=== PATIENT | male | born 1945 | race Caucasian/White ===

== ENCOUNTER 2023-07-16 01:59 | Day surgery (SDC) | payer MEDICARE, SELFPAY ==
[2023-07-13 15:32] VITALS: BMI 34.0
[2023-07-16] VITALS (11 sets, daily range): BP systolic 77–153; BP diastolic 50–89; PULSE 47–90; RESP 14–20; TEMP 36.3; O2SAT 99–100; BMI 34.0
--- NOTE | 2023-07-16 07:00 | ECG_ITS ---
Measurements Intervals [place] Rate: 102 P: FL: 0 QRS: -19 QRSD: 101 T: -16 QT: 341 QTc: 446 Interpretive Statements ATRIAL FIBRILLATION WITH RAPID VENTRICULAR RESPONSE INFERIOR MYOCARDIAL INFARCTION , OF INDETERMINATE AGE [40+ ms Q WAVE AND/OR ST/T ABNORMALITY IN II/aVF] ABNORMAL ECG NO PREVIOUS ECG AVAILABLE FOR COMPARISON Electronically Signed On 07-16-2023 16:57:10 CDT by Zak Mendiola M.D.
[2023-07-16 08:11] LABS: Anion Gap 7 mmol/L (8-16); Blood Urea Nitrogen 22 mg/dL (9-20); Calcium 8.9 mg/dL (8.4-10.2); Carbon Dioxide 25 mmol/L (22-30); Chloride 102 mmol/L (98-107); Estimated CRCL calculation 75 ml/min; Estimated Glomerular Filt Rate > 60; Glucose 106 mg/dL (65-110); Magnesium 1.9 mg/dL (1.6-2.3); Potassium 4.3 mmol/L (3.4-5.0); Sodium 134 mmol/L (137-145)
--- NOTE | 2023-07-16 08:30 | ECG_ITS ---
Measurements Intervals [place] Rate: 51 P: 87 VT: 216 QRS: -21 QRSD: 110 T: -29 QT: 469 QTc: 433 Interpretive Statements SINUS BRADYCARDIA WITH FIRST DEGREE AV BLOCK INFERIOR MYOCARDIAL INFARCTION , OF INDETERMINATE AGE [40+ ms Q WAVE AND/OR ST/T ABNORMALITY IN II/aVF] COMPARED TO ECG 07/16/2023 07:20:29 SINUS BRADYCARDIA NOW PRESENT FIRST DEGREE AV BLOCK NOW PRESENT Electronically Signed On 07-16-2023 16:59:55 CDT by Zak Mendiola M.D.
--- NOTE | 2023-07-16 08:32 | WPDMODSED ---
Moderate Sedation Note-Pt Data Patient Data Diagnosis: Persistent atrial fibrillation Present Complaint: No complaints this morning Procedure to be performed/Plan: DC cardioversion Allergies Allergy/AdvReac Type Severity Reaction Status Date / Time No Known Allergies Allergy Verified 07/13/23 15:52 Home Medications Medication Instructions Recorded Confirmed Type amiodarone 200 mg tablet 400 mg PO DAILY 07/13/23 07/16/23 History apixaban 5 mg tablet (Eliquis) 5 mg PO BID 07/13/23 07/16/23 History cholecalciferol (vitamin D3) 50 50 mcg PO DAILY 07/13/23 07/16/23 History mcg (2,000 unit) capsule excyctik-ypqbzs-xrgnroic acid 1 cap PO DAILY 07/13/23 07/16/23 History levothyroxine 150 mcg tablet 150 mcg PO DAILY 07/13/23 07/16/23 History metoprolol succinate 100 mg 100 mg PO DAILY 07/13/23 07/16/23 History tablet,extended release 24 hr sacubitril 24 mg-valsartan 26 mg 1 tablet PO BID 07/13/23 07/16/23 History tablet (Entresto) spironolactone 25 mg tablet 25 mg PO DAILY 07/13/23 07/13/23 History Current Medications: Active Medications Sodium Chloride (Normal Saline Iv) 1,000 mls @ 30 mls/hr IV CONT .Q24H [place] Sedation/Anesthesia: No previous sedation/anesthesia problems (including family history). [facility] Social History Social History Smoking status: Former smoker Tobacco type: cigarettes Second hand tobacco smoke exposure: No Smoking end date: 10/01/72 Alcohol intake: current Alcohol use details: 1-2 drinks a week Substance use: never Substance use type: does not use Living arrangements: with family Spiritual care concerns: No Mod Sed Physical Exam Physical Exam Pre Procedural Exam: Normal: Appearance, Neck, Throat, Airway, Lungs, Heart Size, Neuro Exam and Extremities and Variation: Heart Rate and Heart Rhythm (Irregularly irregular) Hours since solid foods: 12 Hours since liquid intake: 12 Mallampati Classification: class II Internal Medicine - PN: Obj Da Vital Signs Vital Signs: Vital Signs - 24 hr 07/16/23 07:26 Temperature 36.3 C L Pulse Rate 90 Respiratory Rate 16 Blood Pressure 153/89 H Pulse Oximetry 99 Oxygen Delivery Room Air Meds/Results Medications: Active Medications Generic Name Dose Route Start Last Admin Trade Name Robyq PRN Reason Stop Dose Admin Sodium Chloride 1,000 mls @ 30 mls/hr 07/16/23 07:00 Normal Saline Iv IV CONT .Q24H [place] Labs 07/16/23 07:25 Labs: Laboratory Results - last 24 hr 07/16/23 07:25 Sodium 134 L Potassium 4.3 Chloride 102 Carbon Dioxide 25 Anion Gap 7 L BUN 22 H Creatinine 0.90 Estim Creat Clear Calc 75 Estimated GFR > 60 Glucose 106 Calcium 8.9 Magnesium 1.9 ASA Classification/Sedation ASA Classification/Sedation ASA Class: III Emergent: No Risks: Risks, benefits and alternatives explained and patient/family accepted plan for sedation. Patient re-evaluated immediately prior to sedation.
--- NOTE | 2023-07-16 08:41 | WPDCARDPROC ---
Cardiac Cath Procedure Note Date of procedure:: 07/16/23 Performing physician:: Lamberto Marin MD Indication:: Atrial fibrillation of unknown duration Left ventricular systolic dysfunction Brief clinical history:: This is an 78-year-old man recently seen in consultation as an outpatient because of the newly recognized atrial fibrillation. He was found to have some LV systolic dysfunction presumably related to this. He was treated with guideline directed medical therapy and started on amiodarone as an outpatient. He has been anticoagulated with apixaban. The attempt to restore sinus rhythm today has been scheduled as an outpatient. Procedure Procedure performed:: DC cardiovert Sedation/Medication given:: Intravenous propofol total dosage of 80 mg Estimated blood loss:: None Procedure note:: Patient was brought to the cardiac catheterization lab holding area where he was in the postabsorptive state IV access in the left upper extremity and defibrillator patches were placed in the AP position. Defibrillator was turned on at 200 joule output synchronized. He was sedated with the propofol as mentioned above. He was counter shocked x1 and restored sinus rhythm/sinus bradycardia with frequent atrial ectopic activity. Findings:: As above Conclusion:: Successful uncomplicated DC cardioversion restoring sinus rhythm with 200 joules x1 shock. Lamberto Brown MD [facility]
== END 2023-07-16 10:10 | disposition home or self-care (01) ==
PROVIDERS: PCP Physician Assistant Medical; Visit Provider Specialist
PROC: 5A2204Z Restoration of Cardiac Rhythm, Single (ICD-10-PCS; principal; 2023-07-16 08:30)
DX: I48.91 Unspecified atrial fibrillation (principal); Z79.01 Long term (current) use of anticoagulants; Z87.891 Personal history of nicotine dependence
CPT/HCPCS: 36415; 80048; 83735; 92960; A9270; J2704; J7040

== ENCOUNTER 2023-10-11 12:19 | Outpatient (CLI) | payer MEDICARE, SELFPAY ==
--- NOTE | ~2023-10-11 | US_ITS ---
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 COMPARISON: None. FINDINGS: Right and left brachial artery pressures of 140 mm Hg and 142 mm Hg, respectively, are concordant (no rmal difference <= 30 mmHg). The right ankle-brachial index (ARLET) is indeterminate as a vessel or unable to be occluded (normal >= 0.9-1). The right great toe-brachial index (TBI) is 0.33 (normal >= 0.6-0.8). Arterial waveforms are biphasic with normal brisk systolic upstrokes at the right common femoral artery with progressive de layed upstrokes and broadened systolic peaks at the right ankle and right great toe. The left ARELT is 1.28. The left TBI is 0.32. Arterial waveforms are biphasic with normal systolic upst roke at the left common femoral artery and with similar progressive delayed upstrokes and broadened s ystolic peaks at the left ankle. Essentially aphasic waveform at the left great toe. IMPRESSION: 1. Arterial occlusive disease to bilateral lower limbs with moderate to severely decreased bilateral TBI's Reviewed, dictated and finalized at location A. ENT SERVICES REPRESENTATIVE IMPRESSION: 1. Arterial occlusive disease to bilateral lower limbs with moderate to severel y decreased bilateral TBI's
== END 2023-10-11 12:20 | disposition home or self-care (01) ==
LOC: CHSIMG 12:22
PROVIDERS: PCP Physician Assistant Medical; Visit Provider Podiatrist Foot & Ankle Surgery
DX: I73.9 Peripheral vascular disease, unspecified (principal)
CPT/HCPCS: 93923

== ENCOUNTER 2024-01-17 08:49 | Outpatient (CLI) | payer MEDICARE, SELFPAY ==
[2024-01-17 10:14] LABS: Basophils Percent Auto 0.3 % (0.2-1.2); Eosinophils Absolute Auto 0.2 K/mm3 (0-0.3); Eosinophils Percent Auto 1.3 % (0-4.4); Hematocrit 41.5 % (42.0-52.0); Hemoglobin 13.5 g/dL (14.0-18.0); Immature Granulocyte Absolute 0.15 K/mm3 (0.00-0.031); Immature Granulocyte Percent A 1.3 % (0-0.5); Lymphocytes Absolute Auto 2.43 K/mm3 (0.9-3.2); Lymphocytes Percent Auto 20.6 % (18.3-44.2); Mean Corpuscular HGB Conc 32.5 g/dl (32-36); Mean Corpuscular Hemoglobin 32.3 pg (26-34); Mean Corpuscular Volume 99.3 fl (80-100); Mean Platelet Volume 11.2 fl (7.4-10.4); Monocytes Absolute Auto 1.1 K/mm3 (0.1-0.6); Monocytes Percent Auto 9.4 % (2.6-8.5); Neutrophils Absolute Auto 7.9 K/mm3 (1.3-6.7); Neutrophils Percent Auto 67.1 % (45.5-73.1); Platelet Count Result 363 k/mm3 (150-375); Red Blood Count 4.18 M/mm3 (4.6-6.20); Red Cell Distribution Width 12.8 % (11.5-14.5); White Blood Count 11.8 K/mm3 (4.5-10.0)
== END 2024-01-17 08:50 | disposition home or self-care (01) ==
PROVIDERS: PCP Physician Assistant Medical
DX: I73.9 Peripheral vascular disease, unspecified (principal); I50.9 Heart failure, unspecified
CPT/HCPCS: 36415; 85025

== ENCOUNTER 2024-05-05 09:23 | Outpatient (CLI) | payer MEDICARE, SELFPAY ==
[2024-05-05 10:27] LABS: Hematocrit 36.9 % (42.0-52.0); Hemoglobin 11.8 g/dL (14.0-18.0); Mean Corpuscular Hemoglobin 31.8 pg (26-34); Mean Corpuscular Volume 99.5 fl (80-100); Mean Platelet Volume 11.2 fl (7.4-10.4); Platelet Count Result 248 k/mm3 (150-375); Red Blood Count 3.71 M/mm3 (4.6-6.20); Red Cell Distribution Width 12.8 % (11.5-14.5); White Blood Count 8.3 K/mm3 (4.5-10.0)
[2024-05-05 10:31] LABS: Add Urine Microscopic? NO; Appearance Urine Clear (Clear); Bilirubin Urine Negative (Negative); Blood Urine Negative (Negative); Color Urine Yellow (Yellow); Glucose Urine UA Negative (Negative); Ketones Urine Negative (Negative); Leukocyte Esterase Ur Negative LEU/UL (Negative); Nitrate Urine Negative (Negative); Protein Urine Negative (Negative); Urobilinogen Urine 0.2 mg/dL (<2.0); pH Urine 5.5 (5.0-9.0)
[2024-05-05 10:36] LABS: Creatinine Urine 56.9 mg/dL; Total Protein Urine Random 11 mg/dL; Ur Ttl Prot Creatinine Ratio 0.19 mg/mg (0-0.20)
[2024-05-05 10:39] LABS: Creatine Kinase 40 U/L (55-170)
[2024-05-05 10:46] LABS: Complement C3 92 mg/dL (88-165)
[2024-05-05 11:10] LABS: Erythrocyte Sedimentation Rate 38 mm/hr (0-20)
[2024-05-07 08:49] LABS: ANA Pattern Nuclear, Speckled; ANA Titer 1:40 titer; Anti Nuclear Antibody Titer 1:40 titer
[2024-05-07 12:58] LABS: Kappa\\Lambda Light Chains 1.47 (0.26-1.65); Lambda Light Chain 17.3 mg/L (5.7-26.3)
[2024-05-07 14:53] LABS: Complement Total CH50 52 U/mL (31-60)
[2024-05-10 19:33] LABS: Immunofixation, Serum Normal pattern.
== END 2024-05-05 09:24 | disposition home or self-care (01) ==
PROVIDERS: PCP Physician Assistant Medical; Visit Provider Internal Medicine Nephrology
DX: I48.91 Unspecified atrial fibrillation (principal); I50.9 Heart failure, unspecified; R60.9 Edema, unspecified; R94.4 Abnormal results of kidney function studies; R89.9 Unspecified abnormal finding in specimens from other organs, systems and tissues
CPT/HCPCS: 36415; 81003; 82550; 82570; 83883; 84156; 85027; 85652; 86038; 86039; 86160; 86162; 86334

== ENCOUNTER 2024-05-07 10:31 | Outpatient (CLI) | payer MEDICARE, SELFPAY ==
[2024-05-07 12:03] LABS: Creatinine Urine 56.6 mg/dL
[2024-05-07 12:26] LABS: Total Volume 24 Hour Urine 1800 ml; Urea Nitrogen 24 Hour Urine 10.2 G/DAY (12-20)
[2024-05-07 12:27] LABS: Total Volume 24 Hour Urine 1800 ml
[2024-05-08 04:53] LABS: Sodium Urine Random 51 meq/L
[2024-05-08 04:54] LABS: Sodium 24 Hour Urine 91 mmol/day (40-220); Total Volume 24 Hour Urine 1800 ml
[2024-05-09 14:53] LABS: Creat 24 Hr 1.03 g/24 h (0.50-2.15); Pro/Creat Ratio 140 mg/g creat (<100); Protein,total, 24 Hr Ur 144 mg/24 h (<150)
[2024-05-12 16:13] LABS: Albumin 0 %
== END 2024-05-07 10:32 | disposition home or self-care (01) ==
LOC: ANHLAB 10:41
PROVIDERS: PCP Physician Assistant Medical; Visit Provider Internal Medicine Nephrology
DX: R94.4 Abnormal results of kidney function studies (principal); I48.91 Unspecified atrial fibrillation; I50.9 Heart failure, unspecified; R60.9 Edema, unspecified
CPT/HCPCS: 81050; 82570; 84300; 84540; 86335

== ENCOUNTER 2024-05-08 11:32 | Outpatient (CLI) | payer MEDICARE, SELFPAY ==
[2024-05-08 12:47] LABS: INR 1.4
[2024-05-08 12:53] LABS: Anion Gap 9 mmol/L (4-12); Blood Urea Nitrogen 47 mg/dL (9-20); Carbon Dioxide 26 mmol/L (22-30); Chloride 97 mmol/L (98-107); Estimated Glomerular Filt Rate 32; Glucose 105 mg/dL (65-110); Partial Thromboplastin Time 33.2 Seconds (22.3-36.8); Potassium 4.3 mmol/L (3.4-5.0); Sodium 132 mmol/L (137-145)
== END 2024-05-08 11:33 | disposition home or self-care (01) ==
PROVIDERS: PCP Physician Assistant Medical; Visit Provider Podiatrist Foot & Ankle Surgery
DX: M79.89 Other specified soft tissue disorders (principal); R94.4 Abnormal results of kidney function studies
CPT/HCPCS: 36415; 80048; 85610; 85730

== ENCOUNTER 2024-05-09 00:54 | Day surgery (SDC) | payer MEDICARE, SELFPAY ==
--- NOTE | 2024-05-07 15:40 | PC.NURSE ---
Report to the Outpatient Waiting Room, entrance under the green pavilion located off [facility], at time ___6:30 AM____ on date __05/09/24 . Planned Procedure Time: __8:30 AM . Time changes happen often and if your time is changed the preop area will call you the afternoon before. - You and your visitor will be asked to self-screen and do not enter if you have any COVID symptoms. - A mask is optional within the hospital at this time. Patients may have clear liquids (water, carbonated beverages, clear teas, apple juice) until 3 hours prior to surgery( 5:30 AM) with a maximum of 20 ounces. - No food from midnight until time of surgery - Infants may have breast milk until 4 hours before surgery, infant formula 6 hours prior to surgery. - Children will be allowed to drink immediately following surgery. If applicable, please bring a bottle or sippy cup to assist with drinking. Juice, water, soda, and popsicles are readily available. For infants on formula, please bring formula the day of surgery. Pacifiers are allowed. Take the following medications with a SIP of water the morning of surgery: __AMIODARONE,LEVOTHYROXINE,METOPROLOL DO NOT STOP ANY OF YOUR OTHER PRESCRIPTION MEDICATIONS PRIOR TO SURGERY ?EXCEPT THE FOLLOWING Medications to discontinue per physician __WIFE STATES LAST DOSE ELIQUIS WAS 05/06/24 .(THAT IS WHAT THEY HAVE DONE WITH OTHER SURGERIES) INSTRUCTED NOT TO STOP PLAVIX PER DR SPAIN (VASCULAR SURGEON) LAST DOSE ALL VITAMINS AND SUPPLMENTS WAS 05/06/24 Please no make-up, nail tajik, hairspray, perfume, deodorant, or body powder the day of surgery. No jewelry (including any body piercings) or valuables the day of surgery, leave them at home. Please take a shower or bath the night before, or the morning of, surgery with an antibacterial soap. Wear comfortable, loose fitting clothing. Children are encouraged to wear pajamas. - Jewelry must be removed prior to entering the operating room. Rings and piercings that are not removed may be cut off. - The hospital will not accept responsibility for valuables. - Please leave all valuables, including medications, at home the day of surgery. If you are going home after surgery, a licensed p d driver must drive you home. - NO public transportation without another adult if you receive anesthesia. - We recommend that an adult stay with you for 24 hours following discharge. - We also recommend that you do not drive, make important decision, drink alcoholic beverages, or take any drugs that were not prescribed by your health care provider for at least 24 hours after your discharge time. Follow any additional instructions given to you from your surgeon. If you or anyone in your household have experienced Covid symptoms in the past week, please notify your surgeon or the nurse liaison at the phone number below for possible testing. Telephone instructions given to __PATIENT'S KARLA and asked if any additional questions and then verbalized understanding. Patient advised to call surgeon office or pre surgery nurse liaison [phone] if any additional questions.
[2024-05-07 16:01] VITALS: BMI 37.5
--- NOTE | 2024-05-09 07:17 | WPDHPUPDATE1 ---
History and Physical Update Update Date/Time: 05/09/24 07:17 History and Physical has been reviewed, including an updated exam of the patient. There are NO changes in the patient's condition. Risks, benefits, and alternatives have been discussed and questions answered. Patient agrees to proceed with procedure.
[2024-05-09] MEDS: LACTATED RINGERS 1,000 ML 30 ML IV CONT (07:30)
--- NOTE | 2024-05-09 07:37 | SUR.PREOP ---
pt is to stay on plavix per vascular, dr sharp waived the repeat PT of 17 because the pt is still on plavix. NA was 132 and repeat was also waived by dr sharp. dr newton also aware of all of this too.
[2024-05-09 07:40] VITALS: BP 77/54; PULSE 55; RESP 14; TEMP 36.1; O2SAT 99
[2024-05-09] MEDS: LIDOCAINE HCL 2% LOCAL INJ 20 ML VIAL 10 ML INFILTRATE (08:07)
[2024-05-09 08:27] VITALS: BP 96/53; RESP 14
--- NOTE | 2024-05-09 08:30 | WPDANESEPPF ---
Anes - Initial Pre Proc Eval Procedure: Operation Date: 05/09/24 08:30 Proposed Procedures p Wound Bed Preparation of Right Foot, Skin Graft Application Right Foot - Amish Mackenzie Jr., DPM Date/Time: 05/09/24 08:30 Surgeon: Amish Mackenzie Jr., DPM Pre Op Diagnosis: chronic wound right foot Patient Data Age: 79 Gender: M Height: 1.83 m Weight: 127.1 kg Last Vital Signs Temp 36.1 C L 05/09/24 07:40 Pulse 55 L 05/09/24 07:40 Resp 14 05/09/24 08:27 BP 96/53 L 05/09/24 08:27 Pulse Ox 99 05/09/24 07:40 Allergies Allergy/AdvReac Type Severity Reaction Status Date / Time No Known Allergies Allergy Verified 05/09/24 07:46 Home Medications Medication Instructions Recorded Confirmed Type apixaban 5 mg tablet (Eliquis) 5 mg PO BID 07/13/23 05/09/24 History cholecalciferol (vitamin D3) 50 50 mcg PO DAILY 07/13/23 05/07/24 History mcg (2,000 unit) capsule kxlpyeqx-enjdhd-uyyuqsvg acid 1 cap PO DAILY 07/13/23 05/07/24 History levothyroxine 150 mcg tablet 150 mcg PO DAILY 07/13/23 05/09/24 History metoprolol succinate 100 mg 100 mg PO DAILY 07/13/23 05/09/24 History tablet,extended release 24 hr sacubitril 24 mg-valsartan 26 mg 1 tablet PO BID 07/13/23 05/07/24 History tablet (Entresto) amiodarone 200 mg tablet (Pacerone) 200 mg PO BID 05/05/24 05/09/24 History atorvastatin 40 mg tablet 40 mg PO DAILY 05/05/24 05/07/24 History clopidogrel 75 mg tablet (Plavix) 75 mg PO DAILY 05/05/24 05/09/24 History doxycycline hyclate 100 mg tablet 100 mg PO Q12H 05/05/24 05/07/24 History furosemide 40 mg tablet 40 mg PO QAM 05/05/24 05/07/24 History potassium citrate 5 mEq (540 mg) 5 meq PO DAILY 05/05/24 05/07/24 History tablet,extended release Patient hx anesthesia problems: other (combative) Family hx anesthesia problems: none Results Review: All pre-operative results and documents have been reviewed as part of the pre-operative evaluation. ON LICENSE OF [facility] Past Medical History Medical History Abnormal results of kidney function studies Afib CHF (congestive heart failure) Social History Social History Smoking packs per day: 0.5 Smoking cigarettes per day: 10.0 Years smoked: 3 Smoking pack-years: 1.50 Smoking status: Former smoker Tobacco type: cigarettes Second hand tobacco smoke exposure: No Smoking end date: 10/01/70 Alcohol intake: current Alcohol use details: 1-2 drinks a week Substance use: never Substance use type: does not use Do You Feel Safe in your Home?: Yes Lack of Transportation: No Lack of Food: Never True Current Housing: I Have Housing Concerned About Future Housing: No Difficulty Paying Gas/Electric Bills: No Difficulty Paying for Meds: No Currently Unemployed: No Education: High School Diploma/GED Difficulty w/ Childcare or Family Care: No Living arrangements: with family Occupation/Education: retired Gender identity (if verbalized by the patient): Male Spiritual care concerns: No Comments light sedation with amidate recent EF reported at 60% Anes - Eval Final PreProcedure Day of Procedure 05/09/24 08:30 Patient weight: obese Heart: regular rate and rhythm Lungs: decreased breath sounds Airway: Mallampati scale class II Neurological: alert and oriented Last oral intake: >/= 8 hours ASA classification: IV Emergent: no Anesthetic plan: proceed Anesthesia type and monitoring: general GIVS and standard monitoring Results Review: All pre-operative results and documents have been reviewed as part of the pre-operative evaluation. Informed Consent: The patient's anesthetic plan and its attendant risks and benefits were discussed with the patient/family/POA. Questions were solicited and answers provided to the satisfaction of the patient/family/POA.
[2024-05-09] MEDS: ceFAZolin 3 GM/D5W 100 ML 100 ML IVPB (08:34)
[2024-05-09 09:08] VITALS: BP 104/50; PULSE 42; RESP 16; O2SAT 100
--- NOTE | 2024-05-09 09:31 | PM.OP ---
Procedure Note - Brief Procedure Note - Brief Date of procedure: 05/09/24 chronic wound right foot Procedure performed: 1. Wound bed preparation right foot 2. Skin graft application right foot Surgeon: Amish Mackenzie Jr., DPM Findings: Full thickness ulcer measuring 2.5cm in diameter. Not probing to bone.
[2024-05-09 09:40] VITALS: BP 113/51; PULSE 44; RESP 16
[2024-05-09 10:10] VITALS: BP 111/51; PULSE 59; RESP 16
--- NOTE | 2024-05-09 13:03 | W.PM.PROC2 ---
Procedure Note - Detailed Date of Procedure 05/09/24 Pre-op Diagnosis Chronic wound right foot Post-op Diagnosis Same Procedure Performed 1. Wound bed preparation right foot 2. Skin graft application right foot Surgeon Amish Mackenzie Jr., DPM Anesthesia MAC and Local Indications Chronic non healing ulceration right foot s/p angioplasty to the right lower extremity. Description of Procedure Under mild sedation, the patient was brought in to the operating room and kept in the pre op bed in order to prevent patient overexertion during the transfer.The foot was then scrubbed, prepped, and draped in the usual aseptic manner. Following light IV sedation, local anesthesia was obtained about the affected lower extremity utilizing 20 mL of a one to mix of 2% Lidocaine plain and 0.5% Marcaine plain with a main block about the base of the 5th metatarsal.?No tourniquet was used per the request of Dr. Julian Jordan,the vascular specialist, as the patient recently underwent a right lower extremity angioplasty. Next, I used the [employer] 8mm system to carefully debrided the peripheral hyperkeratotic tissue and also the superficial aspect of the wound until healthy bleeding tissue was noted. Next, I applied the 5cm by 5cm Integra Cytal Wound matrix 3-layer graft. I did use a 5-0 Prolene to suture the graft to the wound. I trimmed the excess from the periphery of the wound as per standard graft application technique. Next, I applied adaptic, hydrogel, and wet to dry 4x4 gauze over the graft. The secondary dressings included 4x4 gauze, Kerlix and an Chavez Wrap. The patient will remain on a limited weight bearing regiment for the next 3 days until he is seen in my office for a dressing change. Order written for home health and also for a wheel chair. The patient did very well with the procedure and the anesthesia.? The patient was transferred to the recovery room with vital signs stable and vascular status intact to all toes of the affected foot.? Following a period of postoperative monitoring, the patient will be discharged home on the following written and oral postoperative instructions: 1. The patient should keep the dressing clean, dry, and intact.? Use a cast protector bag with showers. 2. The patient will be strictly protected weight bearing with a surgical shoe and use a wheel chair/walker as needed. 3. Patient should elevate the foot while at rest. 4. The patient is to contact Dr. Mackenzie for all postop care and if any problems arise. 5. Prescriptions were written for Percocet 5/325 dispensed 40 to be taken 1 p.o. q.4-6 hours as needed for severe pain.? Implants Versajet 8mm system Integra Cytal Wound Matrix 3 layer xenograft 5cm by 5cm Estimated Blood Loss 1 Drains No Packing No Pathology None sent Complications No immediate complications Condition Stable Disposition Same day
== END 2024-05-09 10:30 | disposition home or self-care (01) ==
PROVIDERS: PCP Physician Assistant Medical; Visit Provider Podiatrist Foot & Ankle Surgery
PROC: (CPT 15275; principal; 2024-05-09 08:30)
DX: T81.89XA Other complications of procedures, not elsewhere classified, initial encounter (principal); L97.519 Non-pressure chronic ulcer of other part of right foot with unspecified severity; Y83.8 Other surgical procedures as the cause of abnormal reaction of the patient, or of later complication, without mention of misadventure at the time of the procedure; I48.91 Unspecified atrial fibrillation; I50.9 Heart failure, unspecified; Z87.891 Personal history of nicotine dependence; Z79.02 Long term (current) use of antithrombotics/antiplatelets; E66.9 Obesity, unspecified; Z68.38 Body mass index [BMI] 38.0-38.9, adult; Z79.01 Long term (current) use of anticoagulants
CPT/HCPCS: 15275; 15004; J0690; J2704; J7120

== ENCOUNTER 2024-05-23 13:31 | Outpatient (CLI) | payer MEDICARE, SELFPAY ==
--- NOTE | ~2024-05-23 | US_ITS ---
EXAMINATION: US venous doppler [facility] DATE: 05/23/2024 14:17 INDICATION: Lower limb edema. TECHNIQUE: Grayscale ultrasound images without and with compression and Doppler ultrasound images of the bilateral lower extremity veins were obtained. COMPARISON: None. FINDINGS: The visualized portions of right common femoral vein, profunda (deep) femoral vein, femoral vein, pop liteal vein, peroneal veins, posterior tibial veins, and greater saphenous vein outflow are patent. The visualized portions of left common femoral vein, profunda femoral vein, femoral vein, popliteal v ein, peroneal veins, posterior tibial veins, and greater saphenous vein outflow are patent. IMPRESSION: 1. No deep venous thrombosis. Reviewed, dictated and finalized at location A.
== END 2024-05-23 13:32 | disposition home or self-care (01) ==
PROVIDERS: PCP Physician Assistant Medical; Visit Provider Internal Medicine Nephrology
DX: R60.9 Edema, unspecified (principal); M79.89 Other specified soft tissue disorders
CPT/HCPCS: 93970

== ENCOUNTER 2024-05-24 18:35 | Inpatient (IN) | payer MEDICARE, SELFPAY ==
[2024-05-24] VITALS (12 sets, daily range): BP systolic 62–155; BP diastolic 32–103; PULSE 30–83; RESP 13–24; TEMP 36.3–36.6; O2SAT 98–100
--- NOTE | ~2024-05-24 | XR_ITS ---
Supine and upright views of the abdomen Clinical history: Nausea, vomiting Findings: And NG tube in place. Mildly distended small bowel loops could reflect small bowel obstruct ion. No free air. No abnormal mass lesion or calcification is seen. There is degenerative spondylosis of the lumbar spine. Impression: . Suspected small bowel obstruction with NG tube in place. Reviewed, dictated and finalized at location . Impression: . Suspected small bowel obstruction with NG tube in place.
--- NOTE | ~2024-05-24 | XR_ITS ---
Portable chest x-ray Comparison: 05/26/2024 Clinical History: Hypoxia Findings: Right-sided PICC line in satisfactory position. Questionable minimal central haziness the right upper lobe inferiorly. Remainder of the lungs are clear.. Cardiomediastinal silhouette is stab le. Bones and soft tissues are unremarkable. Impression: Questional subtle hazy opacity inferior right upper lobe. Right-sided PICC line in place. Reviewed, dictated and finalized at location M. Impression: Questional subtle hazy opacity inferior right upper lobe. Right-sided PICC line in place.
--- NOTE | ~2024-05-24 | XR_ITS ---
Supine and upright views of the abdomen Clinical history: NG tube placement Findings: NG tube in place, side port just below the diaphragm. Bowel gas pattern is nonspecific. No evidence for free air. No abnormal mass lesion or calcification is seen. Osseous structures are intac t. Impression: NG tube in place, as above. Reviewed, dictated and finalized at location . Impression: NG tube in place, as above.
--- NOTE | ~2024-05-24 | CT_ITS ---
Noncontrast CT scan of the right foot CLINICAL HISTORY: Sepsis TECHNIQUE: Noncontrast imaging of the foot was performed in the axial, coronal, and sagittal planes. Dose reduction technique was used on this scan by utilizing automated exposure control and iterative reconstruction technique. The dose-length product (DLP) was 533.33 mGy-cm. Findings: No acute fracture seen. No bony destructive change or periosteal reaction seen to suggest o steomyelitis. There is advanced degenerative change at the first metatarsophalangeal joint region. There is extensive atrophic change of the plantar musculature of the foot. There is diffuse subcutane ous soft tissue edema, especially at the distal calf/ankle. No focal fluid collection/abscess evident . There are extensive vascular calcifications. There is a probable stent in the posterior tibial franklin ry distally. IMPRESSION: No definite evidence of osteomyelitis. Advanced degenerative change at the first metatarsophalangeal joint region. Diffuse subcutaneous soft tissue edema. Correlate for cellulitis versus bland edema. Reviewed, dictated and finalized at [facility]. IMPRESSION: No definite evidence of osteomyelitis. Advanced degenerative change at the first metatarsophalangeal joint region. Diffuse subcutaneous soft tissue edema. Correlate for cellulitis versus bland e cecille.
--- NOTE | ~2024-05-24 | CT_ITS ---
Non-contrast CT scan of the Abdomen and Pelvis Clinical indication: Nausea and vomiting Technique: 2.5 mm axial scans were obtained through the abdomen and pelvis without intravenous or or al contrast. Dose reduction technique was used on this scan by utilizing automated exposure control a nd iterative reconstruction technique. The dose-length product (DLP) was 1583.05 mGy-cm. Findings: Images through the lung bases reveal multifocal patchy areas of consolidation the bilatera l lower lobes, compatible with pneumonia.. There are bilateral nonobstructing renal stones, largest in the right kidney measuring up to 1 cm in diameter. No ureteral stone or hydronephrosis on either side. The liver, spleen, pancreas, gallbladder, and adrenals appear normal. There is no aortic aneurysm. There is no evidence of bowel obstruction. Images through the pelvis were performed. There is no evidence of ascites or lymphadenopathy. 1.4 cm urinary bladder stone present. Prostate gland enlarged. No pelvic mass evident. Impression: Patchy bilateral lower lobe pneumonia. Bilateral nonobstructing nephrolithiasis. 1.4 cm urinary bladder stone. Reviewed, dictated and finalized at [facility]. Impression: Patchy bilateral lower lobe pneumonia. Bilateral nonobstructing nephrolithiasis. 1.4 cm urinary bladder stone.
--- NOTE | ~2024-05-24 | XR_ITS ---
Supine and upright views of the abdomen Clinical history: Ileus, small bowel obstruction COMPARISON: 05/29/2024 Findings: NG tube in satisfactory position. Bowel gas pattern is nonspecific overall. No free air trudy dent. No abnormal mass lesion or calcification is seen. There is degenerative change of the L-spine. Impression: Nonspecific bowel gas pattern, with NG tube in place. Reviewed, dictated and finalized at location . Impression: Nonspecific bowel gas pattern, with NG tube in place.
--- NOTE | ~2024-05-24 | US_ITS ---
EXAMINATION: US renal BI DATE: 05/25/2024 13:53 INDICATION: Acute on chronic kidney disease. TECHNIQUE: Multiple ultrasound grayscale images of the kidneys were obtained. COMPARISON: Lumbar spine CT 01/06/2011 FINDINGS: The right kidney measures 10.3 x 7.2 x 6.7 cm. The left kidney is not identified. The right kidney d emonstrates normal parenchymal echogenicity. There is no right-sided hydronephrosis. The bladder is n ot visualized. IMPRESSION: 1. Normal right kidney. 2. Left kidney not identified. Reviewed, dictated and finalized at location A.
--- NOTE | ~2024-05-24 | XR_ITS ---
EXAMINATION: XR ribs RT 2V w CXR 2V Exam Date/Time: 05/24/2024 19:40 CDT HISTORY: pain after falls; hx chf; edema on exam Comparison: None available. RESULT: Lines, tubes, and devices: None. Lungs and pleura: Clear. Cardiothymic silhouette: Unremarkable. Other: No acute osseous or upper abdominal finding. IMPRESSION: No acute cardiopulmonary process. No acute osseous finding in the right ribs. Reviewed, dictated and finalized at location K.
--- NOTE | ~2024-05-24 | XR_ITS ---
Portable chest x-ray Comparison: 05/24/2024 Clinical History: PICC line placement Findings: Right-sided PICC line present, tip in the SVC. Possible minimal central congestive change. No pneumothorax. Cardiomediastinal silhouette is stable. Bones and soft tissues are unremarkable. Impression: Right-sided PICC line in satisfactory position. Possible minimal central congestive change. Reviewed, dictated and finalized at location . Impression: Right-sided PICC line in satisfactory position. Possible minimal central congestive change.
--- NOTE | ~2024-05-24 | CT_ITS ---
EXAMINATION: CT brain wo con DATE: 05/24/2024 19:29 INDICATION: Fall on Eliquis . TECHNIQUE: Computed tomography (CT) of the head was performed without intravenous contrast. The mA wa s adjusted according to patient size. Iterative reconstruction technique was employed. The dose-lengt h product was 756.57 mGy-cm. COMPARISON: None. FINDINGS: No acute intracranial hemorrhage or extra-axial fluid collection. No hydrocephalus, mass, or herniation. No acute ischemic infarct. Unremarkable dural venous sinus attenuation. No acute osseous abnormality. The aerated spaces are clear. Mild atrophy and chronic white matter change. Atherosclerotic intracranial calcification. Bilateral l ens replacements. IMPRESSION: No acute intracranial process. Reviewed, dictated and finalized at location K.
--- NOTE | 2024-05-24 18:57 | ED.WEAKNESS ---
HPI - Weakness General Chief complaint: Weakness Stated complaint: weakness Time Seen by Provider: 05/24/24 18:55 Source: patient and family ( daughter, ) History of Present Illness HPI Narrative: patient presents with weakness and multiple falls. He has had 2 falls this week. he has been having multiple falls recently besides this. He is on Eliquis. He has a history of heart failure and atrial fibrillation and is on amiodarone, Entresto, furosemide, and metoprolol. he is also on Plavix. He has a history of vascular issues in his lower extremities particularly on the right and has previously undergone deep vein arteriograph and has a stent on the right leg. Yesterday he had venous Doppler imaging in this leg recently and had a hair is matted arterial Doppler imaging which he gets performed monthly. Dr Brandon had ordered some of this imaging. 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 he denies any shortness of breath although his daughter does think that he becomes short of breath without him realizing it. He had been diagnosed with mesothelioma. his only complaints of pain is as ribs from falling today. He states he has taken today's medications. He denies any loss of consciousness. His Lasix dose has been changed from 80 mg daily to 40 mg daily 2 months ago given his falls. He underwent allografting in the right foot with Dr Mackenzie. He denies any CP. Related Data Home Medications Medication Instructions Recorded Confirmed apixaban 5 mg tablet (Eliquis) 5 mg PO BID 07/13/23 05/09/24 cholecalciferol (vitamin D3) 50 50 mcg PO DAILY 07/13/23 05/07/24 mcg (2,000 unit) capsule azncjmie-xneyom-ztzyicrm acid 1 cap PO DAILY 07/13/23 05/07/24 levothyroxine 150 mcg tablet 150 mcg PO DAILY 07/13/23 05/09/24 metoprolol succinate 100 mg 100 mg PO DAILY 07/13/23 05/09/24 tablet,extended release 24 hr sacubitril 24 mg-valsartan 26 mg 1 tablet PO BID 07/13/23 05/07/24 tablet (Entresto) amiodarone 200 mg tablet (Pacerone) 200 mg PO BID 05/05/24 05/09/24 atorvastatin 40 mg tablet 40 mg PO DAILY 05/05/24 05/07/24 clopidogrel 75 mg tablet (Plavix) 75 mg PO DAILY 05/05/24 05/09/24 doxycycline hyclate 100 mg tablet 100 mg PO Q12H 05/05/24 05/07/24 furosemide 40 mg tablet 40 mg PO QAM 05/05/24 05/07/24 potassium citrate 5 mEq (540 mg) 5 meq PO DAILY 05/05/24 05/07/24 tablet,extended release Allergies Allergy/AdvReac Type Severity Reaction Status Date / Time No Known Allergies Allergy Verified 05/09/24 07:46 [facility] Past Medical History Medical History (Updated 05/24/24 @ 22:51 by Heide Ortiz MD) Abnormal results of kidney function studies Afib CHF (congestive heart failure) Surgical History Surgical History History of angioplasty of peripheral vessel Social History Social History Smoking packs per day: 0.5 Smoking cigarettes per day: 10.0 Years smoked: 3 Smoking pack-years: 1.50 Smoking status: Former smoker Tobacco type: cigarettes Second hand tobacco smoke exposure: No Smoking end date: 10/01/70 Alcohol intake: current Alcohol use details: 1-2 drinks a week Substance use: never Substance use type: does not use Do You Feel Safe in your Home?: Yes Lack of Transportation: No Lack of Food: Never True Current Housing: I Have Housing Concerned About Future Housing: No Difficulty Paying Gas/Electric Bills: No Difficulty Paying for Meds: No Currently Unemployed: No Education: High School Diploma/GED Difficulty w/ Childcare or Family Care: No Living arrangements: with family Occupation/Education: retired Gender identity (if verbalized by the patient): Male Spiritual care concerns: No Exam Narrative: GENERAL: Well-appearing, well-nourished, and in no acute distress. HEAD: Normocephalic, atraumatic. EYES: Non injected, non icteric
--- NOTE | 2024-05-24 18:58 | ECG_ITS ---
Test Date: 2024-05-24 20:02:32 Measurements Intervals [place] Rate: 32 P: 78 [place]: 294 QRS: -7 QRSD: 111 T: 3 QT: 557 QTc: 411 Interpretive Statements SINUS BRADYCARDIA WITH FIRST DEGREE AV BLOCK MODERATE INTRAVENTRICULAR CONDUCTION DELAY [110+ ms QRS DURATION] No previous ECG available for comparison Electronically Signed On 05-25-2024 10:37:54 CDT by Kailey Tompkins M.D.
[2024-05-24] MEDS: ATROPINE SULFATE 1 MG/ML VIAL IV PUSH (20:08)
[2024-05-24] MEDS: ATROPINE SULFATE 1 MG/10 ML SYRINGE IV PUSH (20:13)
[2024-05-24] MEDS: SODIUM CHLORIDE 0.9% IV 500 ML 999 ML IV CONT (20:13)
[2024-05-24 20:25] LABS: Basophils Percent Auto 0.2 % (0.2-1.2); Eosinophils Absolute Auto 0.1 K/mm3 (0-0.3); Eosinophils Percent Auto 1.5 % (0-4.4); Hematocrit 31.7 % (42.0-52.0); Hemoglobin 10.4 g/dL (14.0-18.0); Immature Granulocyte Absolute 0.17 K/mm3 (0.00-0.031); Immature Granulocyte Percent A 1.9 % (0-0.5); Lymphocytes Absolute Auto 1.99 K/mm3 (0.9-3.2); Lymphocytes Percent Auto 22.5 % (18.3-44.2); Mean Corpuscular HGB Conc 32.8 g/dl (32-36); Mean Corpuscular Hemoglobin 32.3 pg (26-34); Mean Corpuscular Volume 98.4 fl (80-100); Mean Platelet Volume 12.5 fl (7.4-10.4); Monocytes Absolute Auto 0.9 K/mm3 (0.1-0.6); Monocytes Percent Auto 9.6 % (2.6-8.5); Neutrophils Absolute Auto 5.7 K/mm3 (1.3-6.7); Neutrophils Percent Auto 64.3 % (45.5-73.1); Nucleated Red Blood Cells Perc 0.2 % (0.0-0.2); Platelet Count Result 231 k/mm3 (150-375); Red Blood Count 3.22 M/mm3 (4.6-6.20); Red Cell Distribution Width 13.5 % (11.5-14.5); White Blood Count 8.9 K/mm3 (4.5-10.0)
[2024-05-24 20:33] LABS: Glucose Point of Care 107 mg/dl (65-105)
[2024-05-24 20:34] LABS: Alanine Aminotransferase 123 U/L (6-50); Albumin Level 3.4 g/dL (3.5-5.1); Alkaline Phosphatase 126 U/L (38-126); Anion Gap 11 mmol/L (4-12); Aspartate Amino Transferase 89 U/L (17-59); Bilirubin,Total 0.6 mg/dL (0.2-1.3); Blood Urea Nitrogen 64 mg/dL (9-20); Calcium 8.7 mg/dL (8.4-10.2); Carbon Dioxide 23 mmol/L (22-30); Chloride 95 mmol/L (98-107); Creatine Kinase 37 U/L (55-170); Estimated CRCL calculation 27 ml/min; Estimated Glomerular Filt Rate 23; Glucose 101 mg/dL (65-110); Magnesium 1.7 mg/dL (1.6-2.3); Potassium 5.1 mmol/L (3.4-5.0); Sodium 129 mmol/L (137-145)
[2024-05-24 20:35] LABS: Lactic Acid Reflex 2.7 mmol/L (0.7-2.0)
[2024-05-24 20:45] LABS: NT Pro B Type Natriuretic Pept 2550 pg/mL (19.9-100); Troponin I < 0.012 ng/mL (0.000-0.034)
[2024-05-24] MEDS: DOPamine 400 MG/D5W 250 ML 400 MG/250 ML BAG 11.63 MG IV CONT (20:50)
--- NOTE | 2024-05-24 20:57 | PC.NURSE ---
2034 1 mg of atropine administered via IVP per Dr. Avain jiménez. 2049 dopamine drip started at 5mcg/kg/min per Dr. Avani jiménez.
[2024-05-24 21:12] LABS: Influenza A QL RT-PCR Negative (Negative); Influenza B QL RT-PCR Negative (Negative); RSV RNA, RT-PCR Negative (Negative); SARS-CoV-2 RNA PCR Negative (Negative)
[2024-05-24 21:39] LABS: Thyroid Stimulating Hormone 0.789 uIU/mL (0.465-4.680)
--- NOTE | 2024-05-24 21:44 | PM.IMHP ---
H&P: HPI History of Present Illness Date/Time: 05/24/24 21:44 Chief Complaint: Generalized weakness Narrative: this is an 79-year-old male with past medical history significant for atrial fibrillation, congestive heart failure, peripheral vascular disease, status post stent placement, chronic wound of the right lower extremity. patient presents to the emergency room due to recurrent falls. Today patient was found to have a heart rate in the 30s and systolic of 70 brought to the emergency room for further evaluation. Had a fever the day prior. Patient is status post recent surgery of right foot and stenting. patient has multiple tears of the skin and bruises. Preliminary workup was significant for creatinine of 2.7, BNP of 2550, sodium 129. Patient has been placed on dopamine drip and admitted to intensive care unit. EXAMINATION: XR ribs RT 2V w CXR 2V Exam Date/Time: 05/24/2024 19:40 CDT HISTORY: pain after falls; hx chf; edema on exam Comparison: None available. RESULT: Lines, tubes, and devices: None. Lungs and pleura: Clear. Cardiothymic silhouette: Unremarkable. Other: No acute osseous or upper abdominal finding. IMPRESSION: No acute cardiopulmonary process. No acute osseous finding in the right ribs. EXAMINATION: US venous doppler LE BI DATE: 05/23/2024 14:17 INDICATION: Lower limb edema. TECHNIQUE: Grayscale ultrasound images without and with compression and Doppler ultrasound images of the bilateral lower extremity veins were obtained. COMPARISON: None. FINDINGS: The visualized portions of right common femoral vein, profunda (deep) femoral vein, femoral vein, popliteal vein, peroneal veins, posterior tibial veins, and greater saphenous vein outflow are patent. The visualized portions of left common femoral vein, profunda femoral vein, femoral vein, popliteal vein, peroneal veins, posterior tibial veins, and greater saphenous vein outflow are patent. IMPRESSION: 1. No deep venous thrombosis. [facility] Past Medical History Medical History (Updated 05/24/24 @ 22:51 by Heide Ortiz MD) Abnormal results of kidney function studies Afib CHF (congestive heart failure) Surgical History Surgical History History of angioplasty of peripheral vessel Family History Family History (Updated 05/24/24 @ 23:46 by Robert Fernandez RN) Sibling Atrial fibrillation Cerebrovascular accident Father Myocardial infarction Other Myocardial infarct, old Social History Social History Smoking packs per day: 0.5 Smoking cigarettes per day: 10.0 Years smoked: 3 Smoking pack-years: 1.50 Smoking status: Former smoker Tobacco type: cigarettes Second hand tobacco smoke exposure: No Smoking end date: 10/01/70 Alcohol intake: former Alcohol use details: 1-2 drinks a week Substance use: never Substance use type: does not use Do You Feel Safe in your Home?: Yes Lack of Transportation: No Lack of Food: Never True Current Housing: I Have Housing Concerned About Future Housing: No Difficulty Paying Gas/Electric Bills: No Difficulty Paying for Meds: No Currently Unemployed: No Education: High School Diploma/GED Difficulty w/ Childcare or Family Care: No Living arrangements: with family Occupation/Education: retired Gender identity (if verbalized by the patient): Male Spiritual care concerns: No Meds Home Medications and Allergies Home Medications Medication Instructions Recorded Confirmed Type apixaban 5 mg tablet (Eliquis) 5 mg PO BID 07/13/23 05/24/24 History cholecalciferol (vitamin D3) 50 50 mcg PO DAILY 07/13/23 05/24/24 History mcg (2,000 unit) capsule collagen,hydrolysate 500 mg-biotin 1 cap PO DAILY ##0 07/13/23 05/24/24 History 800 mcg-ascorbic acid 50 mg capsule levothyroxine 150 mcg tablet
[2024-05-24] MEDS: MORPHINE SULFATE (*CRX) 4 MG/ML INJ IV PUSH (21:53)
[2024-05-24] MEDS: CALCIUM GLUCONATE 1,000 MG/10 ML VIAL 1000 MG IV PUSH (22:10)
[2024-05-24 22:24] LABS: Add Urine Microscopic? YES; Appearance Urine Clear (Clear); Bacteria Urine None Seen /hpf; Bilirubin Urine Negative (Negative); Blood Urine Negative (Negative); Color Urine Yellow (Yellow); Glucose Urine UA Negative (Negative); Ketones Urine Negative (Negative); Leukocyte Esterase Ur Negative LEU/UL (Negative); Need Manual Microscopic Reviewed; Nitrate Urine Negative (Negative); Protein Urine Trace mg/dL (Negative); RBC Urine 0-2 /hpf (0-2); Specific Grav Ur 1.011 (1.001-1.035); Squamous Epithelial Cell Urine None Seen /hpf (Few); Urobilinogen Urine 0.2 mg/dL (<2.0); WBC Urine 0-5 /hpf (0-3)
[2024-05-24 23:12] LABS: Reflex Lactic Acid Yes or No Add Lactic
[2024-05-25] VITALS (30 sets, daily range): BP systolic 70–167; BP diastolic 40–106; PULSE 47–83; RESP 13–23; TEMP 36.3–36.5; O2SAT 96–100; BMI 40.1
[2024-05-25 01:12] LABS: Lactic Acid 1.6 mmol/L (0.7-2.0)
[2024-05-25] MEDS: SODIUM CHLORIDE 0.9% IV 1,000 ML 65 ML IV CONT (01:25)
[2024-05-25] MEDS: CEFEPIME 1 GM/NS 50 ML 1 GM/50 ML BAG IVPB ×2 (01:25→13:31)
[2024-05-25 01:34] LABS: MRSA (PCR) NOT DETECTED (NOT DETECTE)
[2024-05-25 01:55] LABS: Glucose Point of Care 110 mg/dl (65-105)
[2024-05-25] MEDS: VANCOMYCIN 1,250 MG/NS 250 ML 1,250 MG/250 ML BAG 166.67 MG IVPB ×2 (02:30→04:10)
--- NOTE | 2024-05-25 02:37 | ADMGEN ---
This patient, Adolfo Ibarra, was admitted to Intensive Care Unit-2. Patient/family oriented to hospital policies and general routines including ID bracelet, bed and alarms, visiting hours, pain management, procedures, bathroom and other care routines, personal items, smoking policy, room service/diet, and visiting hours. Information on how to activate the Rapid Response Team has been discussed. Patient/Family are encouraged to report perceived risks to care and to ask questions if they do not understand what they are told or what they should do.
[2024-05-25 06:03] LABS: Hematocrit 34.4 % (42.0-52.0); Hemoglobin 11.2 g/dL (14.0-18.0); Mean Corpuscular HGB Conc 32.6 g/dl (32-36); Mean Corpuscular Hemoglobin 31.8 pg (26-34); Mean Corpuscular Volume 97.7 fl (80-100); Mean Platelet Volume 11.3 fl (7.4-10.4); Platelet Count Result 234 k/mm3 (150-375); Red Blood Count 3.52 M/mm3 (4.6-6.20); Red Cell Distribution Width 13.3 % (11.5-14.5); White Blood Count 11.8 K/mm3 (4.5-10.0)
[2024-05-25 06:13] LABS: Anion Gap 7 mmol/L (4-12); Blood Urea Nitrogen 58 mg/dL (9-20); Calcium 9.1 mg/dL (8.4-10.2); Carbon Dioxide 25 mmol/L (22-30); Chloride 99 mmol/L (98-107); Estimated CRCL calculation 28 ml/min; Estimated Glomerular Filt Rate 24; Glucose 99 mg/dL (65-110); Magnesium 1.6 mg/dL (1.6-2.3); Phosphorus 4.1 mg/dL (2.5-4.5); Potassium 4.7 mmol/L (3.4-5.0); Sodium 131 mmol/L (137-145)
[2024-05-25] MEDS: LEVOTHYROXINE SODIUM 150 MCG TABLET PO (07:19)
--- NOTE | 2024-05-25 09:46 | WPDCNINT ---
Assessment and Plan Assessment and plan (1) Symptomatic bradycardia: Code(s): R00.1 - Bradycardia, unspecified Status: Acute Assessment and Plan: Symptomatic sinus bradycardia with hypotension Replace magnesium Hold amiodarone and beta-dylon Dopamine infusion to keep his heart rate of 50 (2) Acute kidney injury superimposed on CKD: Code(s): N17.9 - Acute kidney failure, unspecified; N18.9 - Chronic kidney disease, unspecified Status: Acute Assessment and Plan: Patient has history of chronic kidney disease although baseline creatinine is unknown the information in the chart. Patient was seen by Nephrology as an outpatient. Nephrology has been consulted. This could be worsened secondary to hypotension from bradycardia and intravascular volume depletion Will give cautious amount of IV fluids considering patient is overall volume overloaded Monitor urine output electrolytes and creatinine Check CK, urine electrolytes, renal ultrasound Monitor intake and output (3) Hyperkalemia: Code(s): E87.5 - Hyperkalemia Status: Acute Assessment and Plan: Presented with potassium of 5.1 which has improved with medical treatment Monitor potassium level (4) Peripheral arterial disease: Code(s): I73.9 - Peripheral vascular disease, unspecified Status: Acute Assessment and Plan: Patient has history of peripheral arterial disease status post vascular procedure in the right leg details of that are unknown as procedure was done at [facility] (5) Afib: Code(s): I48.91 - Unspecified atrial fibrillation Status: Acute Assessment and Plan: Currently in sinus rhythm but bradycardic hold amiodarone and metoprolol Hold anticoagulation (6) Edema: Code(s): R60.9 - Edema, unspecified Status: Acute Assessment and Plan: Patient is overall volume overloaded and will need diuretics eventually but at this time due to worsening renal function and hypotension I will give him cautious amount of IV fluids along with some albumin (7) GI bleed: Code(s): K92.2 - Gastrointestinal hemorrhage, unspecified Status: Acute Assessment and Plan: Patient had episode of vomiting this morning and nurse reports that it was coffee-ground. Hold anticoagulation IV Protonix Consult GI Monitor hemoglobin Hold Plavix until I have additional information about patient's vascular procedure (8) Sepsis: Code(s): A41.9 - Sepsis, unspecified organism Status: Acute Assessment and Plan: Patient met criteria for sepsis on arrival in the ER. Patient was not given the fluid bolus due to his overall volume overload His hypotension could be partly explained by the bradycardia and medications that he was on He was started on antibiotics His UA was negative and chest x-ray was clear The right foot is definitely warmer and rhythm it was as compared to left but this could be due to angioplasty with increased perfusion of the right foot and the patient's does not feel and it looks any different Cultures have been sent Wound Care has been consulted Check procalcitonin level Plan DVT prophylaxis -SCDs Stress ulcer prophylaxis -PPI Nutrition -npo Code Status -patient is DNR DNI Family updated at bedside Total Critical Care Time - 40 minutes Due to a high probability of clinically significant, life threatening deterioration, the patient required my highest level of preparedness to intervene emergently and I personally spent this critical care time directly and personally managing the patient. This critical care time included obtaining a history; examining the patient; pulse oximetry; ordering and review of studies; arranging urgent treatment with development of a management plan; evaluation of patient's response to treatment; frequent reassessment; and discussions with other providers. It was exclusive of separately billable procedures and treating other
[2024-05-25] MEDS: CLOPIDOGREL BISULFATE 75 MG TABLET PO (09:57)
[2024-05-25] MEDS: ATORVASTATIN 40 MG TABLET PO (09:57)
[2024-05-25] MEDS: FUROSEMIDE INJ 40 MG/4 ML VIAL IV PUSH (09:57)
[2024-05-25] MEDS: CHOLECALCIFEROL 1,000 UNITS TABLET 2000 UNITS PO (09:57)
--- NOTE | 2024-05-25 10:54 | PM.CNCAR ---
Assessment and Plan Assessment and plan (1) Symptomatic bradycardia: Code(s): R00.1 - Bradycardia, unspecified Status: Acute Assessment and Plan: Continue with Dopamine for now, wean off as tolerated. Hold Amiodarone and Metoprolol (has been taking 200mg BID at home). Will allow washout of Amiodarone and Toprol and see how his heart rates do. No evidence of heart block -- does not need urgent/emergent temporary transvenous pacer at this time. (2) Sepsis: Code(s): A41.9 - Sepsis, unspecified organism Status: Acute Assessment and Plan: On antibiotics as per ICU team. (3) GI bleed: Code(s): K92.2 - Gastrointestinal hemorrhage, unspecified Status: Acute Assessment and Plan: GI consulted. Holding Eliquis. (4) Acute kidney injury superimposed on CKD: Code(s): N17.9 - Acute kidney failure, unspecified; N18.9 - Chronic kidney disease, unspecified Status: Acute Assessment and Plan: Nephrology consulted. (5) Peripheral arterial disease: Code(s): I73.9 - Peripheral vascular disease, unspecified Status: Acute Assessment and Plan: Continue Plavix for now along with high intensity statin. If he continues to have issues with GI bleeding, then may need to hold Plavix as well. (6) Paroxysmal atrial fibrillation: Code(s): I48.0 - Paroxysmal atrial fibrillation Status: Acute Assessment and Plan: Holding Amiodarone, Toprol, Eliquis as noted above. (7) Heart failure with improved ejection fraction (HFimpEF): Code(s): I50.32 - Chronic diastolic (congestive) heart failure Status: Acute Assessment and Plan: Has had ongoing issues with lower extremity edema. Holding Lasix for now given RANDALL, concern for sepsis / GI bleed. Hold Entresto for now given RANDALL. Plan Recommendations and plan discussed with Critical Care Physician. History of Present Illness History of Present Illness Consult date/time: 05/25/24 10:54 Requesting physician: Reyna Varma MD Consult reason: Other (Bradycardia ) Reason For Visit: Symptomatic bradycardia, RANDALL on CKD; heart failure Narrative: We are consulted for bradycardia. This is an 79 year old male with the following history: 1. Heart failure with improved LVEF. Previously, LVEF was 30% with subsequent normalization of LVEF in November 2023. 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 2. Paroxysmal atrial fibrillation on Eliquis, s/p cardioversion 3. Severe peripheral vascular disease. Chronic wound of the right foot s/p skin graft application to the right foot on 05/09/2024. 4. Hyperlipidemia Adolfo is a patient of Dr. Marin'deon. He presented to [facility] ER 05/24 for weakness and multiple falls. Family reports that he has had about 6 falls this year. Last fall on . His post op right shoe got caught on the corner of the hallway, and thinks that is what caused his fall. He does not believe he has lost consciousness during any of these falls, but he cannot remember all the details clearly. Daughter reports that yesterday at home, his heart rate was in the 30s and SBP in the 70s. He was noted to be significantly bradycardic in the ED with heart rate in the 30s. EKG showed sinus bradycardia. He was also hypotensive. Given a small fluid bolus due to hypotension. Given 3 doses of Atropine 1mg with brief improvement in heart rate after each dose, but did not sustain a response. Workup also notable for WBC of 11.8, SCr of 2.7, elevated lactate of 2.7, normal TSH level. Echocardiogram in March 2024 shows LVEF 60%. BMP on 04/11/2024 shows SCr was 1.41 and eGFR 50, BUN 25 (obtained from Epic chart). History was obtained from the patient, his medical chart, family members at bedside (his daughter is a nurse here at [facility]). Outside medical records ([facility] Epic chart) were personally reviewed. This morning, he was on Dopamine 2.5 mcg/kg/min. When th
[2024-05-25 11:02] LABS: Creatine Kinase 49 U/L (55-170)
[2024-05-25] MEDS: MAGNESIUM SULF 2 GM/WATER 50ML 2 GM/50 ML BAG IVPB (11:06)
[2024-05-25 11:13] LABS: Procalcitonin 0.1 ng/mL
[2024-05-25] MEDS: ALBUMIN HUMAN 5% 25 GM/500 ML BTL IV CONT (11:17)
--- NOTE | 2024-05-25 11:47 | PM.CNNEP ---
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 anemia infection(?) follow-up on urine electrolytes, CPK, and renal ultrasound holding diuretics for now (but will likely need to resume) along with entresto agree with trial of IVFs follow trend of repeat labs and UOP (2) Stage 3a chronic kidney disease: Code(s): N18.31 - Chronic kidney disease, stage 3a Status: Chronic Assessment and Plan: creatinine had been running ~ 1.1 - 1.3 since late August 2023 in mid March 2024, creatinine declined with a creatinine of 2.13mg/dl in association with lightheadness and falls this rise in creatinine correlates with use of high dose diuretics (lasix 80mg qday) to treat LE edema diuretics discontinued but LE edema returned resume on lasix at 40mg qday most recent creatinine before this admission = 1.41mg/dl on 04/11/24 presumably related to vascular disease, age-related change, and necessity of diuretic therapy outpatient evaluation only significant for + ANKUSH -- other testing (serologies, SPEP, UPEP...etc.) have been negative to date recently established care with Dr. Brandon regarding renal insufficiency (3) Symptomatic bradycardia: Code(s): R00.1 - Bradycardia, unspecified Status: Acute Assessment and Plan: as noted on admission symptomatic with noted sinus bradycardia associated with hypotension amiodaraone and beta dylon on hold on dopamine gtt currently (4) Sepsis: Code(s): A41.9 - Sepsis, unspecified organism Status: Acute Assessment and Plan: criteria met on presentation follow culture data on empiric antibiotics wound care consulted follow trend of hemodyamics (5) Edema: Code(s): R60.9 - Edema, unspecified Status: Acute Assessment and Plan: significant issue in the last few months was on oral diuretic therapy prior to admission related to PAD/PVD and possible untreated LUIS; CHF seems less likely given recent Echo with good EF... follow clinical exam (6) Afib: Code(s): I48.91 - Unspecified atrial fibrillation Status: Deleted Assessment and Plan: initially on rate control strategy as well as anticoagulation appears in sinus rhythm but bradycardic previosuly holding amiodarone and metoprolol holding anticoagulation also (see #6) Cardiology recommendations noted (7) GI bleed: Code(s): K92.2 - Gastrointestinal hemorrhage, unspecified Status: Acute Assessment and Plan: reportedly coffee ground emesis earlier this AM on IV PPI follow trend of H/H GI consulted holding anticoagulation and plavix Long extensive discussion (greater than 20 minutes) with the patient as well as her at bedside regarding his renal dysfunction and the likelihood that current acute medical issues with regard to his bradycardia and associated hypertension are likely to blame for his worsening kidney parameters. They are both aware that he had evidence of renal insufficiency even prior to this hospitalization although the exact etiology was not entirely clear although the thought process was it was related to his significant peripheral vascular disease, age, and necessity of diuretic therapy as his kidney function started to fluctuate once he was started on oral diuretics. I will continue follow the patient with you while he remains hospitalized and make further recommendations as deemed necessary. Thank you for allowing me to participate in care of this patient. History of Present Illness Reason for Consult Consult date: 05/25/24 Reason for consult: acute renal failure (on chronic kidney disease) Chief Complaint Chief complaint: Symptomatic bradycardia, AK
--- NOTE | 2024-05-25 11:47 | P.CONNP_ITS ---
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 * anemia * infection(?) * follow-up on urine electrolytes, CPK, and renal ultrasound * holding diuretics for now (but will likely need to resume) along with entresto * agree with trial of IVFs * follow trend of repeat labs and UOP (2) Stage 3a chronic kidney disease: Code(s): N18.31 - Chronic kidney disease, stage 3a Status: Chronic Assessment and Plan: * creatinine had been running ~ 1.1 - 1.3 since late August 2023 * in mid March 2024, creatinine declined with a creatinine of 2.13mg/dl in ass ociation with lightheadness and falls * this rise in creatinine correlates with use of high dose diuretics (lasix 80mg qday) to treat LE edema * diuretics discontinued but LE edema returned * resume on lasix at 40mg qday * most recent creatinine before this admission = 1.41mg/dl on 04/11/24 * presumably related to vascular disease, age-related change, and necessity of diuretic therapy * outpatient evaluation only significant for + ANKUSH -- other testing (serologies, SPEP, UPEP...etc.) have been negative to date * recently established care with Dr. Brandon regarding renal insufficiency (3) Symptomatic bradycardia: Code(s): R00.1 - Bradycardia, unspecified Status: Acute Assessment and Plan: * as noted on admission * symptomatic with noted sinus bradycardia associated with hypotension * amiodaraone and beta dylon on hold * on dopamine gtt currently (4) Sepsis: Code(s): A41.9 - Sepsis, unspecified organism Status: Acute Assessment and Plan: * criteria met on presentation * follow culture data * on empiric antibiotics * wound care consulted * follow trend of hemodyamics (5) Edema: Code(s): R60.9 - Edema, unspecified Status: Acute Assessment and Plan: * significant issue in the last few months * was on oral diuretic therapy prior to admission * related to PAD/PVD and possible untreated LUIS; CHF seems less likely given recent Echo with good EF... * follow clinical exam (6) Afib: Code(s): I48.91 - Unspecified atrial fibrillation Status: Deleted Assessment and Plan: * initially on rate control strategy as well as anticoagulation * appears in sinus rhythm but bradycardic previosuly * holding amiodarone and metoprolol * holding anticoagulation also (see #6) * Cardiology recommendations noted (7) GI bleed: Code(s): K92.2 - Gastrointestinal hemorrhage, unspecified Status: Acute Assessment and Plan: * reportedly coffee ground emesis earlier this AM * on IV PPI * follow trend of H/H * GI consulted * holding anticoagulation and plavix Long extensive discussion (greater than 20 minutes) with the patient as well as her at bedside regarding his renal dysfunction and the likelihood that current acute medical issues with regard to his bradycardia and associated hypertension are likely to blame for his worsening kidney parameters. They are both aware that he had evidence of renal insufficiency even prior to this hospitalization although the exact etiology was not entirely clear although the thought process was it was related to his significant peripheral vascular disease, age, and necessity of diuretic therapy as his kidney function star
[2024-05-25] MEDS: DOPamine 400 MG/D5W 250 ML 400 MG/250 ML BAG 12.28 MG IV CONT (12:22)
[2024-05-25 13:02] LABS: Total Protein Urine Random 15 mg/dL
[2024-05-25 13:04] LABS: Creatinine Urine 9.3 mg/dL; Sodium Urine Random 112 meq/L; Urea Random Urine 132 MG/DL
[2024-05-25] MEDS: LACTATED RINGERS 1,000 ML 75 ML IV CONT (13:31)
[2024-05-25 14:06] LABS: Eosinophil Urine None Seen % (None Seen); Urine Eos QC 2nd Tech Confirmed
[2024-05-25 15:03] LABS: Hematocrit 29.6 % (42.0-52.0); Hemoglobin 9.6 g/dL (14.0-18.0); Mean Corpuscular HGB Conc 32.4 g/dl (32-36); Mean Corpuscular Hemoglobin 32.2 pg (26-34); Mean Corpuscular Volume 99.3 fl (80-100); Mean Platelet Volume 11.6 fl (7.4-10.4); Platelet Count Result 176 k/mm3 (150-375); Red Blood Count 2.98 M/mm3 (4.6-6.20); Red Cell Distribution Width 13.2 % (11.5-14.5); White Blood Count 10.2 K/mm3 (4.5-10.0)
--- NOTE | 2024-05-25 15:22 | WPDGICN ---
Assessment and Plan Assessment and plan (1) Coffee ground emesis: Code(s): K92.0 - Hematemesis Status: Acute Assessment and Plan: hold blood thinner for now wonder if could be temi sam tear, esophagitis, ulcer, etc (denies h/o GERD) given that he is on dopamine and previously had symptomatic bradycardia, I do not think that will tolerate anesthesia- monitor for overt gib, if more emergent situation then will do egd- hold off for now (2) Symptomatic bradycardia: Code(s): R00.1 - Bradycardia, unspecified Status: Acute Assessment and Plan: dopamine by cardiology (3) Falls frequently: Code(s): R29.6 - Repeated falls Status: Acute (4) GI bleed: Code(s): K92.2 - Gastrointestinal hemorrhage, unspecified Status: Acute Assessment and Plan: monitor (5) Paroxysmal atrial fibrillation: Code(s): I48.0 - Paroxysmal atrial fibrillation Status: Acute (6) Acute blood loss anemia: Code(s): D62 - Acute posthemorrhagic anemia Status: Acute GI Consult Note Consult date/time: 05/25/24 15:22 Reason for consult: coffee ground emesis HPI: Adolfo Ibarra is a 79 year old male with history of atrial fibrillation status post cardioversion and on anticoagulation with plavix and eliquis, congestive heart failure, peripheral vascular disease status post stent placement, CKD, chronic wound of the right lower extremity status post grafting on 05/09/24. He came here with recurrent falls. He was found to have symptomatic bradycardia in 30's, admitted to ICU and evaluated by cardiology, currently on dopamine gtt. Once he arrived to ICU had 2 episodes of emesis then with coffee ground material (previously he has belching and dry heaving), never had EGD. He is feeling better now. No melena. Hgb 11.8 to 9.6 Review of Systems Constitutional: Constitutional: Reports weakness Eyes: Eyes: Denies blurry vision ENT: Reports Normal hearing present Cardiovascular: Cardiovascular: Reports lightheadedness Respiratory: Respiratory: Denies cough Gastrointestinal: Gastrointestinal: Reports nausea and Reports vomiting Genitourinary: Genitourinary: Denies dysuria Musculoskeletal: Musculoskeletal: Denies neck pain Integumentary/Breasts: Comments: h/o wound Neurologic: Denies Abnormal speech present Psychiatric: Psychiatric: Denies confusion [facility] [place] Past Medical History Medical History (Updated 05/25/24 @ 15:26 by Carlo Salazar MD) Abnormal results of kidney function studies Acute blood loss anemia CHF (congestive heart failure) CKD (chronic kidney disease) Coffee ground emesis Peripheral arterial disease Surgical History Surgical History H/O skin graft History of angioplasty of peripheral vessel Family History Family History Sibling Atrial fibrillation Cerebrovascular accident Father Myocardial infarction Other Myocardial infarct, old Social History Social History Smoking packs per day: 0.5 Smoking cigarettes per day: 10.0 Years smoked: 3 Smoking pack-years: 1.50 Smoking status: Former smoker Tobacco type: cigarettes Second hand tobacco smoke exposure: No Smoking end date: 10/01/70 Alcohol intake: former Alcohol use details: 1-2 drinks a week Substance use: never Substance use type: does not use Do You Feel Safe in your Home?: Yes Lack of Transportation: No Lack of Food: Never True Current Housing: I Have Housing Concerned About Future Housing: No Difficulty Paying Gas/Electric Bills: No Difficulty Paying for Meds: No Currently Unemployed: No Education: High School Diploma/GED Difficulty w/ Childcare or Family Care: No Living arrangements: with family Occupation/Education: retired Gender identity
[2024-05-25] MEDS: ONDANSETRON INJ 4 MG/2 ML VIAL IV PUSH (15:56)
[2024-05-25] MEDS: SODIUM CHLORIDE 0.9% IV 500 ML IV CONT (20:15)
[2024-05-25] MEDS: PANTOPRAZOLE SODIUM IV 40 MG VIAL IV PUSH (20:26)
[2024-05-25] MEDS: DOPamine 400 MG/D5W 250 ML 400 MG/250 ML BAG 36.84 MG IV CONT (22:10)
[2024-05-25 22:23] LABS: Hemoglobin 10.8 g/dL (14.0-18.0); Mean Corpuscular HGB Conc 32.7 g/dl (32-36); Mean Corpuscular Volume 97.9 fl (80-100); Mean Platelet Volume 11.6 fl (7.4-10.4); Platelet Count Result 212 k/mm3 (150-375); Red Blood Count 3.37 M/mm3 (4.6-6.20); Red Cell Distribution Width 13.2 % (11.5-14.5)
[2024-05-26] VITALS (34 sets, daily range): BP systolic 48–138; BP diastolic 36–94; PULSE 71–88; RESP 12–19; TEMP 36.2–36.6; O2SAT 92–95
[2024-05-26] MEDS: CEFEPIME 1 GM/NS 50 ML 1 GM/50 ML BAG IVPB ×2 (01:07→12:55)
[2024-05-26] MEDS: LACTATED RINGERS 1,000 ML 75 ML IV CONT (04:00)
[2024-05-26 04:52] LABS: Anion Gap 11 mmol/L (4-12); Blood Urea Nitrogen 37 mg/dL (9-20); Calcium 8.8 mg/dL (8.4-10.2); Carbon Dioxide 24 mmol/L (22-30); Chloride 98 mmol/L (98-107); Estimated CRCL calculation 43 ml/min; Estimated Glomerular Filt Rate 39; Glucose 123 mg/dL (65-110); Magnesium 1.6 mg/dL (1.6-2.3); Phosphorus 3.3 mg/dL (2.5-4.5); Potassium 4.7 mmol/L (3.4-5.0); Sodium 133 mmol/L (137-145)
[2024-05-26] MEDS: DOPamine 400 MG/D5W 250 ML 400 MG/250 ML BAG 36.84 MG IV CONT ×2 (05:00→18:36)
[2024-05-26] MEDS: ONDANSETRON INJ 4 MG/2 ML VIAL IV PUSH ×4 (05:16→17:45)
--- NOTE | 2024-05-26 08:34 | PM.PNCARD ---
Progress Note: A&P Assessment and Plan (1) Swelling of lower extremity: Code(s): M79.89 - Other specified soft tissue disorders Status: Acute (2) Symptomatic bradycardia: Code(s): R00.1 - Bradycardia, unspecified Status: Acute Plan 79-year-old man with tachycardia mediated cardiomyopathy. Admitted with concerning hypotension and bradycardia. His beta-dylon and amiodarone have been placed on hold heart rate is in the 70s he is normotensive and has improved hemodynamically. We need to make attempt today to wean off the dopamine and then resume amiodarone and metoprolol at lower dosages. Hope to be able to maintain his medical therapy at lower doses because obviously last year he developed a significant tachycardia mediated cardiomyopathy with low ejection fraction. Will check his rhythm/blood pressure when dopamine has been weaned off and then resume modest doses of amiodarone and metoprolol. If left ventricular systolic function is normalized we may not resume the Entresto at this time Lamberto Marin MD [facility] Subjective Date/time seen: Date of service: 05/26/24 08:34 Interval history: Follow-up visit in this 79-year-old man with: History of atrial fibrillation and tachycardia mediated cardiomyopathy with diagnosis in the summer of 2022. Following institution of guideline directed medical therapy for low ejection fraction and cardioversion following loading with amiodarone his left ventricular ejection fraction normalized and he improved considerably. Patient also has extensive lower extremity peripheral vascular disease and has recently undergone percutaneous arterialization of the lower extremity veins. After this he has developed substantial lower extremity edema. Patient was admitted with problematic hypotension/bradycardia. His amiodarone and metoprolol have been held and his hemodynamics have been supported with dopamine. This morning the patient feels nauseated no other complaints Exam Const: Other: Obese white male reporting nausea otherwise apparently comfortable HENMT: Mouth: Yes moist mucous membranes Eyes: Sclera: sclerae normal Neck: Neck: supple Other: No discernible venous distention Resp: Effort & Inspection: normal respiratory effort Auscultation: clear to auscultation bilaterally Cardio: Rate: regular rate Rhythm: regular rhythm GI: Auscultation: normal bowel sounds Skin: General skin exam: normal color Neuro: Other: Alert and oriented Extrem: Other: Cool to the touch and significant bilateral edema Objective Data Vital Signs Vital Signs: Vital Signs - 24 hr 05/25/24 09:35 05/25/24 09:05 05/25/24 09:20 Temperature 36.3 C L Pulse Rate 65 47 L Respiratory Rate Blood Pressure 107/61 Pulse Oximetry Oxygen Delivery 05/25/24 10:25 05/25/24 10:00 05/25/24 10:33 Temperature Pulse Rate 80 83 Respiratory Rate 17 Blood Pressure 167/106 H 107/53 L Pulse Oximetry 100 Oxygen Delivery 05/25/24 11:36 05/25/24 12:17 05/25/24 12:22 Temperature Pulse Rate 64 80 77 Respiratory Rate Blood Pressure 70/56 L 128/56 L 128/56 L Pulse Oximetry Oxygen Delivery 05/25/24 10:00 05/25/24 12:00 05/25/24 12:00 Temperature Pulse Rate 83 78 Respiratory Rate Blood Pressure Pulse Oximetry 100 Oxygen Delivery Room Air 05/25/24 13:15 05/25/24 14:00 05/25/24 14:00 Temperature Pulse Rate 74 76 76 Respiratory Rate Blood Pressure 78/68 L 97/48 L Pulse Oximetry Oxygen Delivery 05/25/24 12:00 05/25/24 14:00 05/25/24 16:00 Temperature 36.4 C L Pulse Rate 79 76 81 Respiratory Rate 13 23 H 16 Blood Pressure 130/57 L 97/48 L 117/75 Pulse Oximetry 99 100 97 Oxygen Delivery 05/25/24 16:00 05/25/24 16:00 05/25/24 16:00 Temperature Pulse Rate 81 76 Respiratory Rate Blood Pressure 117/51 L Pulse Oximetry 97 Oxygen Delivery Room Air
--- NOTE | 2024-05-26 09:19 | PM.PNNEP ---
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(?) evaluation to date noted: renal u/s without obstruction (unable to visualize left kidney) urine eosinophils negative bland urine sediment urine electrolytes non-prerenal holding diuretics for now (but will likely need to resume) along with Entresto follow trend of repeat labs and UOP (2) Stage 3a chronic kidney disease: Code(s): N18.31 - Chronic kidney disease, stage 3a Status: Chronic Assessment and Plan: creatinine had been running ~ 1.1 - 1.3 since late August 2023 in mid March 2024, creatinine declined with a creatinine of 2.13mg/dl in association with lightheadness and falls this rise in creatinine correlates with use of high dose diuretics (lasix 80mg qday) to treat LE edema diuretics discontinued but LE edema returned resume on lasix at 40mg qday most recent creatinine before this admission = 1.41mg/dl on 04/11/24 presumably related to vascular disease, age-related change, and necessity of diuretic therapy outpatient evaluation only significant for + ANKUSH -- other testing (serologies, SPEP, UPEP...etc.) have been negative to date recently established care with Dr. Brandon regarding renal insufficiency (3) Symptomatic bradycardia: Code(s): R00.1 - Bradycardia, unspecified Status: Acute Assessment and Plan: as noted on admission symptomatic with noted sinus bradycardia associated with hypotension amiodaraone and beta dylon on hold on dopamine gtt currently Cardiology following (4) Sepsis: Code(s): A41.9 - Sepsis, unspecified organism Status: Acute Assessment and Plan: criteria met on presentation follow culture data on empiric antibiotics wound care following follow trend of hemodynamics (5) Edema: Code(s): R60.9 - Edema, unspecified Status: Acute Assessment and Plan: significant issue in the last few months was on oral diuretic therapy prior to admission related to PAD/PVD and possible untreated LUIS; CHF seems less likely given recent Echo with good EF... follow clinical exam (6) Afib: Code(s): I48.91 - Unspecified atrial fibrillation Status: Deleted Assessment and Plan: initially on rate control strategy as well as anticoagulation appears in sinus rhythm but bradycardic previosuly holding amiodarone and metoprolol holding anticoagulation also (see #6) Cardiology recommendations noted (7) GI bleed: Code(s): K92.2 - Gastrointestinal hemorrhage, unspecified Status: Acute Assessment and Plan: reportedly coffee ground emesis earlier on 825 AM on IV PPI follow trend of H/H GI following holding anticoagulation and plavix (8) Nausea & vomiting: Code(s): R11.2 - Nausea with vomiting, unspecified Status: Acute Assessment and Plan: noted in the last 24 hours IV antiemetics NPO follow-up on ordered imaging Will continue to follow. Subjective Date/time seen: 05/26/24 09:19 Interval history: Follow-up for acute kidney injury/acute renal failure on chronic kidney disease. Not issues with nausea and vomiting overnight and earlier this morning; remains on dopamine gtt with relative stability in hemodynamics at this time; renal function/creatinine has improved in conjunction with good urine output in the last 24 hours; no apparent distress noted at the time of my visit. Exam Narrative: General: elderly male in NAD Heart: normal S1 and S2; no rub Lungs: clear anteriorly Abdomen: soft, nontender, nondistended, positive bowel sounds Extremities: no cyanosis or clubbing; 2+ edema
--- NOTE | 2024-05-26 09:19 | P.PNNP_ITS ---
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 * anemia * infection(?) * evaluation to date noted: * renal u/s without obstruction (unable to visualize left kidney) * urine eosinophils negative * bland urine sediment * urine electrolytes non-prerenal * holding diuretics for now (but will likely need to resume) along with Entresto * follow trend of repeat labs and UOP (2) Stage 3a chronic kidney disease: Code(s): N18.31 - Chronic kidney disease, stage 3a Status: Chronic Assessment and Plan: * creatinine had been running ~ 1.1 - 1.3 since late August 2023 * in mid March 2024, creatinine declined with a creatinine of 2.13mg/dl in association with lightheadness and falls * this rise in creatinine correlates with use of high dose diuretics (lasix 80mg qday) to treat LE edema * diuretics discontinued but LE edema returned * resume on lasix at 40mg qday * most recent creatinine before this admission = 1.41mg/dl on 04/11/24 * presumably related to vascular disease, age-related change, and necessity of diuretic therapy * outpatient evaluation only significant for + ANKUSH -- other testing (serologies, SPEP, UPEP...etc.) have been negative to date * recently established care with Dr. Brandon regarding renal insufficiency (3) Symptomatic bradycardia: Code(s): R00.1 - Bradycardia, unspecified Status: Acute Assessment and Plan: * as noted on admission * symptomatic with noted sinus bradycardia associated with hypotension * amiodaraone and beta dylon on hold * on dopamine gtt currently * Cardiology following (4) Sepsis: Code(s): A41.9 - Sepsis, unspecified organism Status: Acute Assessment and Plan: * criteria met on presentation * follow culture data * on empiric antibiotics * wound care following * follow trend of hemodynamics (5) Edema: Code(s): R60.9 - Edema, unspecified Status: Acute Assessment and Plan: * significant issue in the last few months * was on oral diuretic therapy prior to admission * related to PAD/PVD and possible untreated LUIS; CHF seems less likely given recent Echo with good EF... * follow clinical exam (6) Afib: Code(s): I48.91 - Unspecified atrial fibrillation Status: Deleted Assessment and Plan: * initially on rate control strategy as well as anticoagulation * appears in sinus rhythm but bradycardic previosuly * holding amiodarone and metoprolol * holding anticoagulation also (see #6) * Cardiology recommendations noted (7) GI bleed: Code(s): K92.2 - Gastrointestinal hemorrhage, unspecified Status: Acute Assessment and Plan: * reportedly coffee ground emesis earlier on 05/25 AM * on IV PPI * follow trend of H/H * GI following * holding anticoagulation and plavix (8) Nausea & vomiting: Code(s): R11.2 - Nausea with vomiting, unspecified Status: Acute Assessment and Plan: * noted in the last 24 hours * IV antiemetics * NPO * follow-up on ordered imaging Will continue to follow. Subjective Date/time seen: 05/26/24 09:19 Interval history: Follow-up for acute kidney injury/acute renal failure on chronic kidney d
--- NOTE | 2024-05-26 09:51 | WPDINTPN ---
Progress Note: A&P Assessment and Plan (1) Symptomatic bradycardia: Code(s): R00.1 - Bradycardia, unspecified Status: Acute Assessment and Plan: Symptomatic sinus bradycardia with hypotension Replace magnesium Continue to hold Hold amiodarone and beta-dylon Continue Dopamine infusion to keep his heart rate of 50 (2) Acute kidney injury superimposed on CKD: Code(s): N17.9 - Acute kidney failure, unspecified; N18.9 - Chronic kidney disease, unspecified Status: Acute Assessment and Plan: Patient has history of chronic kidney disease although baseline creatinine is unknown the information in the chart. Patient was seen by Nephrology as an outpatient. Nephrology has been consulted. This could be worsened secondary to hypotension from bradycardia and intravascular volume depletion Patient was given cautious amount of IV fluids considering patient is overall volume overloaded Monitor urine output electrolytes and creatinine which has improved 1.7 Normal CK, urine electrolytes, Renal ultrasound IMPRESSION: 1. Normal right kidney. 2. Left kidney not identified. Monitor intake and output (3) Hyperkalemia: Code(s): E87.5 - Hyperkalemia Status: Acute Assessment and Plan: Presented with potassium of 5.1 which has improved with medical treatment Monitor potassium level (4) Peripheral arterial disease: Code(s): I73.9 - Peripheral vascular disease, unspecified Status: Acute Assessment and Plan: Patient has history of peripheral arterial disease status post D[facility] in the right leg at [facility] (5) Afib: Code(s): I48.91 - Unspecified atrial fibrillation Status: Deleted Assessment and Plan: Currently in sinus rhythm but bradycardic hold amiodarone and metoprolol Hold anticoagulation (6) Edema: Code(s): R60.9 - Edema, unspecified Status: Acute Assessment and Plan: Patient is overall volume overloaded and will need diuretics eventually but at this time due to low blood pressure will hold any diuretics (7) GI bleed: Code(s): K92.2 - Gastrointestinal hemorrhage, unspecified Status: Acute Assessment and Plan: Patient had episode of vomiting this morning and nurse reports that it was coffee-ground. Hold anticoagulation IV Protonix Consult GI Monitor hemoglobin Continue Plavix since patient had stent in right posterior tibial artery (8) Sepsis: Code(s): A41.9 - Sepsis, unspecified organism Status: Acute Assessment and Plan: Patient met criteria for sepsis on arrival in the ER. Patient was not given the fluid bolus due to his overall volume overload His hypotension could be partly explained by the bradycardia and medications that he was on He was started on antibiotics His UA was negative and chest x-ray was clear The right foot is definitely warmer and rhythm it was as compared to left but this could be due to angioplasty with increased perfusion of the right foot and the patient's does not feel and it looks any different Cultures have been sent and and 1/2 blood cultures growing Gram-positive cocci which could be a contaminant Wound Care and Podiatry has been consulted procalcitonin level was low at 0.1 Continue empiric antibiotics for now until identification and susceptibilities are back Since patient is going down for CT abdomen I will also was scanned his right foot (9) Nausea & vomiting: Code(s): R11.2 - Nausea with vomiting, unspecified Status: Acute Assessment and Plan: Patient has not had bowel movement for many days. He does have bowel sounds and no tenderness on abdominal exam. He had 3 episodes of vomiting. Daughter concerned about bowel obstruction. Will obtain CT abdomen pelvis without contrast. P.r.n. Porfirio Currently NPO except meds May need NG tube if persistent or worsens Plan DVT prophylaxis -SCDs Stress ulcer prophylaxis -PPI Nutrition -npo Code
[2024-05-26] MEDS: LIDOCAINE HCL 1% PF INJ 5 ML VIAL INFILTRATE (10:10)
[2024-05-26] MEDS: MAGNESIUM SULF 2 GM/WATER 50ML 2 GM/50 ML BAG IVPB (11:46)
[2024-05-26] MEDS: VANCOMYCIN 1,500 MG/NS 500 ML 1,500 MG/500 ML BAG 250 MG IVPB (11:47)
[2024-05-26] MEDS: PANTOPRAZOLE SODIUM IV 40 MG VIAL IV PUSH ×2 (11:47→20:40)
[2024-05-26] MEDS: DOPamine 400 MG/D5W 250 ML 400 MG/250 ML BAG 24.56 MG IV CONT (11:58)
[2024-05-26] MEDS: CLOPIDOGREL BISULFATE 75 MG TABLET PO (12:44)
[2024-05-26] MEDS: CHOLECALCIFEROL 1,000 UNITS TABLET 2000 UNITS PO (12:45)
--- NOTE | 2024-05-26 12:54 | PM.IMHP ---
H&P: HPI History of Present Illness Date/Time: 05/26/24 12:54 Chief Complaint: Weakness with falls and swelling of legs. Narrative: Mr. Ibarra is established in my office he is being managed for a non healing arterial insufficiency wound to the right lateral forefoot since October. He has been diagnosed with severe infrapopliteal arterial occlusive disease and has had two prior attempted revasculizations by Dr. Jordan at [facility]. Subsequent to the last revascularization and lack of healing, I did apply a Integra graft. The patient has been managed by home health as well as his and daughter for local wound care. He has concomitant CKD and CHF both leading to swelling of the legs, compounding the lower extremity problem. Denies FCNV. [facility] Past Medical History Medical History (Updated 05/26/24 @ 13:10 by Amish Mackenzie Jr., DPM) Abnormal results of kidney function studies Acute blood loss anemia CHF (congestive heart failure) CKD (chronic kidney disease) Coffee ground emesis Peripheral arterial disease Surgical History Surgical History H/O skin graft History of angioplasty of peripheral vessel Family History Family History Sibling Atrial fibrillation Cerebrovascular accident Father Myocardial infarction Other Myocardial infarct, old Social History Social History Smoking packs per day: 0.5 Smoking cigarettes per day: 10.0 Years smoked: 3 Smoking pack-years: 1.50 Smoking status: Former smoker Tobacco type: cigarettes Second hand tobacco smoke exposure: No Smoking end date: 10/01/70 Alcohol intake: former Alcohol use details: 1-2 drinks a week Substance use: never Substance use type: does not use Do You Feel Safe in your Home?: Yes Lack of Transportation: No Lack of Food: Never True Current Housing: I Have Housing Concerned About Future Housing: No Difficulty Paying Gas/Electric Bills: No Difficulty Paying for Meds: No Currently Unemployed: No Education: High School Diploma/GED Difficulty w/ Childcare or Family Care: No Living arrangements: with family Occupation/Education: retired Gender identity (if verbalized by the patient): Male Spiritual care concerns: No Meds Home Medications and Allergies Home Medications Medication Instructions Recorded Confirmed Type apixaban 5 mg tablet (Eliquis) 5 mg PO BID 07/13/23 05/24/24 History cholecalciferol (vitamin D3) 50 50 mcg PO DAILY 07/13/23 05/24/24 History mcg (2,000 unit) capsule collagen,hydrolysate 500 mg-biotin 1 cap PO DAILY ##0 07/13/23 05/24/24 History 800 mcg-ascorbic acid 50 mg capsule levothyroxine 150 mcg tablet 150 mcg PO DAILY 07/13/23 05/24/24 History metoprolol succinate 100 mg 100 mg PO DAILY 07/13/23 05/24/24 History tablet,extended release 24 hr sacubitril 24 mg-valsartan 26 mg 1 tablet PO BID 07/13/23 05/24/24 History tablet (Entresto) amiodarone 200 mg tablet (Pacerone) 200 mg PO BID 05/05/24 05/24/24 History atorvastatin 40 mg tablet 40 mg PO DAILY 05/05/24 05/24/24 History clopidogrel 75 mg tablet (Plavix) 75 mg PO DAILY 05/05/24 05/24/24 History doxycycline hyclate 100 mg tablet 100 mg PO Q12H 05/05/24 05/24/24 History furosemide 40 mg tablet 40 mg PO QAM 05/05/24 05/24/24 History potassium citrate 5 mEq (540 mg) 5 meq PO DAILY 05/05/24 05/24/24 History tablet,extended release Allergies Allergy/AdvReac Type Severity Reaction Status Date / Time No Known Allergies Allergy Verified 05/09/24 07:46 Vital Signs Vital Signs - 24 hr 05/25/24 13:15 05/25/24 14:00 05/25/24 14:00 Temperature Pulse Rate 74 76 76 Respiratory Rate Blood Pressure 78/68 L 97/48 L Pulse Oximetry Oxygen Delivery 05/25/24 14:00 05/25/24 16:00 05/25/24 16:00 Temperature 36.4 C L Pulse Rate 76 81
[2024-05-26] MEDS: CENTRAL LINE FLUSH 10 ML IV PUSH ×2 (14:08→20:42)
--- NOTE | 2024-05-26 16:10 | WPDGIPROGNO ---
Progress Note: A&P Assessment and Plan (1) Coffee ground emesis: Code(s): K92.0 - Hematemesis Status: Acute Assessment and Plan: h/h stable, no more obvious bleeding still with nausea antiemetics prn iv protonix, holding eliquis, ok to use plavix high risk for anesthesia- still on dopamine gtt egd only if further drop in hgb or obvious bleeding monitor (2) Nausea & vomiting: Code(s): R11.2 - Nausea with vomiting, unspecified Status: Acute (3) Acute blood loss anemia: Code(s): D62 - Acute posthemorrhagic anemia Status: Acute Assessment and Plan: h/h stable now (4) Symptomatic bradycardia: Code(s): R00.1 - Bradycardia, unspecified Status: Acute Assessment and Plan: on dopamine by cardiology (5) Acute kidney injury superimposed on CKD: Code(s): N17.9 - Acute kidney failure, unspecified; N18.9 - Chronic kidney disease, unspecified Status: Acute Assessment and Plan: creatinine has improved (6) Pneumonia: Code(s): J18.9 - Pneumonia, unspecified organism Status: Acute Assessment and Plan: on abx Subjective Date/time seen: 05/26/24 16:10 Interval history: still on dopamine earlier today with dry heaves, no more bleeding just completed CT scan- no major gi findings, noted pneumonia. Review of Systems Review of Systems: All systems reviewed & are unremarkable except as noted in HPI and below Exam Narrative: General: Pt is alert awake and in NAD Neck: supple Lungs/Chest: Trachea central Clear BS B/L, No crackles or wheezing. Cardiac: Bradycardic. Normal S1 S2. No murmurs Abdomen: Normal bowel sounds.. Soft. NT. ND. Extremities: Bilateral diffuse pitting edema in both legs : Escal[place] in place Neurologic: Follows commands. Moves all 4 extremities PERRL AO x3 Skin: no rash psych: normal affect Objective Data Vital Signs Vital Signs: Vital Signs - 24 hr 05/25/24 18:00 05/25/24 18:00 05/25/24 18:00 Temperature Pulse Rate 73 73 72 Respiratory Rate 16 Blood Pressure 89/48 L 89/48 L Pulse Oximetry 99 Oxygen Delivery 05/25/24 20:15 05/25/24 19:15 05/25/24 19:30 Temperature Pulse Rate 74 73 72 Respiratory Rate 16 Blood Pressure 108/65 94/40 L 90/62 L Pulse Oximetry 96 Oxygen Delivery 05/25/24 19:15 05/25/24 19:45 05/25/24 20:36 Temperature Pulse Rate 73 72 73 Respiratory Rate Blood Pressure 94/40 L 90/62 L 92/52 L Pulse Oximetry Oxygen Delivery 05/25/24 22:00 05/25/24 22:05 05/25/24 22:10 Temperature Pulse Rate 73 73 72 Respiratory Rate 15 Blood Pressure 103/51 L 103/51 L 103/51 L Pulse Oximetry 97 Oxygen Delivery 05/25/24 20:00 05/25/24 22:00 05/26/24 00:00 Temperature Pulse Rate 74 73 75 Respiratory Rate Blood Pressure 97/54 L Pulse Oximetry Oxygen Delivery 05/26/24 00:00 05/26/24 00:00 05/26/24 00:00 Temperature 97.5 F L Pulse Rate 75 74 Respiratory Rate 13 Blood Pressure 97/54 L Pulse Oximetry 94 94 Oxygen Delivery Room Air 05/26/24 02:00 05/26/24 02:00 05/26/24 02:00 Temperature 97.1 F L Pulse Rate 76 76 76 Respiratory Rate 19 Blood Pressure 118/53 L 118/53 L Pulse Oximetry 94 Oxygen Delivery 05/26/24 04:00 05/26/24 04:00 05/26/24 04:00 Temperature 97.6 F Pulse Rate 72 73 Respiratory Rate 14 Blood Pressure 135/58 L 135/58 L Pulse Oximetry 93 93 Oxygen Delivery Room Air 05/26/24 04:58 05/26/24 05:00 05/26/24 04:00 Temperature Pulse Rate 88 88 72 Respiratory Rate Blood Pressure 123/53 L Pulse Oximetry Oxygen Delivery 05/26/24 06:00 05/26/24 06:00 05/26/24 06:00 Temperature 97.8 F Pulse Rate 74 74 74 Respiratory Rate 12 Blood Pressure 123/94 H 123/94 H Pulse Oximetry 92 Oxygen Delivery 05/26/24 08:57 05/26/24 11:58 05/26/24 11:58 Temperature Pulse Rate 77 88 88 Respiratory Rate Blood Press
[2024-05-27] VITALS (30 sets, daily range): BP systolic 65–150; BP diastolic 40–105; PULSE 70–90; RESP 10–18; TEMP 36.1–36.6; O2SAT 90–100; BMI 10.0
--- NOTE | 2024-05-27 | ECHO_ITS ---
Patient Info Name: Adolfo Ibarra Age: 79 years : 1945 Gender: Male Ht: 72 in Wt: 282 lbs BSA: 2.60 m2 HR: 86 bpm BP: 87 / 52 mmHg Technical Quality: Fair Exam Date: 05/27/2024 11:19 AM Exam Location: Echo Lab Patient Status: Inpatient Admit Date: 05/24/2024 Staff Ordering Physician: Kailey Tompkins MD (keira/rolando) Attending Provider: Heide Ortiz MD Referring Physician: Turner TUTTLE; Exam Type: CA echo dop color flow w con Study Info Indications R00.1 - Bradycardia, unspecified - Hypotension Complete two-dimensional, color flow and Doppler transthoracic echocardiogram is performed with contrast to opacify the left ventricle and to improve the deliniation of the left ventricle endocardial borders. Contrast/Agitated Saline Contrast/Ag. Saline: Definity Amount: 2.00 ml Existing IV Access: Yes IV Access Condition: patent with no signs of infiltration Summary 1. Left ventricular chamber dimension is normal. 2. Left ventricular systolic function is normal, estimated at 60-65%. 3. There is mildly increased left ventricular wall thickness. 4. The left ventricular diastolic function is grade I diastolic dysfunction. 5. Right ventricular systolic function is normal. 6. There is mild mitral valve regurgitation. 7. There is mild tricuspid valve regurgitation. 8. Normal inferior vena cava with >50% collapse upon inspiration consistent with normal right atrial pressure, 3 mmHg. Left Ventricle Left ventricular chamber dimension is normal. Left ventricular systolic function is normal, estimated at 60-65%. There is mildly increased left ventricular wall thickness. The left ventricular diastolic function is grade I diastolic dysfunction. Right Ventricle Right ventricular chamber dimension is normal. Right ventricular systolic function is normal. Left Atria Left atrial chamber dimension is normal. Right Atria Right atrial chamber dimension is normal. Atrial Septum Intact interatrial septum visualized by color flow imaging. Aortic Valve The aortic valve is probable trileaflet. There is no aortic valve stenosis. There is no aortic valve regurgitation. There is mild aortic valve calcification. Pulmonic Valve The pulmonic valve is not well visualized. There is trace pulmonic regurgitation. Mitral Valve There is mild mitral valve regurgitation. The mitral valve annulus is mildly calcified. Tricuspid Valve There is mild tricuspid valve regurgitation. Pericardium/Pleural There is no pericardial effusion. Inferior Vena Cava Normal inferior vena cava with >50% collapse upon inspiration consistent with normal right atrial pressure, 3 mmHg. Aorta The aortic root size at the sinus of Valsalva is normal. Left Ventricular Outflow Tract Name Value Normal LVOT 2D LVOT Diameter 2.09 cm LVOT Doppler LVOT Peak Gradient 5 mmHg LVOT Mean Gradient 2 mmHg LVOT VTI 21.18 cm LVOT VTI/AV VTI Ratio 0.96 LVOT Stroke Volume 72.66 ml LVOT CO 5.48 l/min LVOT CI
[2024-05-27] MEDS: ONDANSETRON INJ 4 MG/2 ML VIAL IV PUSH ×2 (00:18→09:07)
[2024-05-27] MEDS: CEFEPIME 1 GM/NS 50 ML 1 GM/50 ML BAG IVPB ×2 (00:21→13:26)
[2024-05-27] MEDS: DOPamine 400 MG/D5W 250 ML 400 MG/250 ML BAG 36.84 MG IV CONT ×3 (01:11→15:00)
[2024-05-27] MEDS: CENTRAL LINE FLUSH 10 ML IV PUSH ×3 (06:00→20:52)
[2024-05-27 06:31] LABS: Hematocrit 33.3 % (42.0-52.0); Hemoglobin 11.1 g/dL (14.0-18.0); Mean Corpuscular HGB Conc 33.3 g/dl (32-36); Mean Corpuscular Hemoglobin 32.2 pg (26-34); Mean Corpuscular Volume 96.5 fl (80-100); Mean Platelet Volume 11.4 fl (7.4-10.4); Platelet Count Result 201 k/mm3 (150-375); Red Blood Count 3.45 M/mm3 (4.6-6.20); Red Cell Distribution Width 13.3 % (11.5-14.5); White Blood Count 9.2 K/mm3 (4.5-10.0)
[2024-05-27 06:48] LABS: Anion Gap 9 mmol/L (4-12); Blood Urea Nitrogen 25 mg/dL (9-20); Calcium 8.5 mg/dL (8.4-10.2); Carbon Dioxide 24 mmol/L (22-30); Chloride 96 mmol/L (98-107); Estimated CRCL calculation 65 ml/min; Estimated Glomerular Filt Rate > 60; Glucose 230 mg/dL (65-110); Magnesium 1.9 mg/dL (1.6-2.3); Phosphorus 2.8 mg/dL (2.5-4.5); Sodium 129 mmol/L (137-145)
[2024-05-27] MEDS: diphenhydrAMINE HCl CAP 25 MG CAPSULE PO (08:52)
[2024-05-27] MEDS: CLOPIDOGREL BISULFATE 75 MG TABLET PO (08:52)
[2024-05-27] MEDS: MIDODRINE HCL 10 MG TABLET PO ×3 (08:52→17:01)
[2024-05-27] MEDS: CHOLECALCIFEROL 1,000 UNITS TABLET 2000 UNITS PO (08:52)
[2024-05-27] MEDS: PANTOPRAZOLE SODIUM IV 40 MG VIAL IV PUSH ×2 (08:53→20:52)
[2024-05-27] MEDS: MAGNESIUM SULF 2 GM/WATER 50ML 2 GM/50 ML BAG IVPB (08:54)
--- NOTE | 2024-05-27 09:08 | PM.PNCARD ---
Progress Note: A&P Assessment and Plan (1) Symptomatic bradycardia: Code(s): R00.1 - Bradycardia, unspecified Status: Acute Assessment and Plan: Wean off Dopamine as tolerated. Continue to hold Amiodarone and Metoprolol for now. (2) Sepsis: Code(s): A41.9 - Sepsis, unspecified organism Status: Acute Assessment and Plan: On antibiotics as per ICU team. (3) GI bleed: Code(s): K92.2 - Gastrointestinal hemorrhage, unspecified Status: Acute Assessment and Plan: GI consulted. Holding Eliquis. Not a candidate for an EGD at this time unless it becomes emergent. (4) Acute kidney injury superimposed on CKD: Code(s): N17.9 - Acute kidney failure, unspecified; N18.9 - Chronic kidney disease, unspecified Status: Acute Assessment and Plan: Nephrology consulted. Renal function is improving. (5) Peripheral arterial disease: Code(s): I73.9 - Peripheral vascular disease, unspecified Status: Acute Assessment and Plan: Continue Plavix for now along with high intensity statin. If he continues to have issues with GI bleeding, then may need to hold Plavix as well. (6) Paroxysmal atrial fibrillation: Code(s): I48.0 - Paroxysmal atrial fibrillation Status: Acute Assessment and Plan: Holding Amiodarone, Toprol, Eliquis as noted above. (7) Heart failure with improved ejection fraction (HFimpEF): Code(s): I50.32 - Chronic diastolic (congestive) heart failure Status: Acute Assessment and Plan: Holding Lasix for now given RANDALL, concern for sepsis / GI bleed. Hold Entresto for now given RANDALL. Will obtain TTE. If his LVEF remains normalized, then may just discontinue the Entresto completely. Plan Recommendations and plan discussed with Hospitalist. Subjective Date/time seen: 05/27/24 09:08 Interval history: Reason for visit: Bradycardia HPI: We are consulted for bradycardia. This is an 79 year old male with the following history: 1. Heart failure with improved LVEF. Previously, LVEF was 30% with subsequent normalization of LVEF in November 2023. 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 2. Paroxysmal atrial fibrillation on Eliquis, s/p cardioversion 3. Severe peripheral vascular disease. Chronic wound of the right foot s/p skin graft application to the right foot on 05/09/2024. 4. Hyperlipidemia Adolfo is a patient of Dr. Hopkins. He presented to [place] [facility] 05/24 for weakness and multiple falls. Family reports that he has had about 6 falls this year. Last fall on . His post op right shoe got caught on the corner of the hallway, and thinks that is what caused his fall. He does not believe he has lost consciousness during any of these falls, but he cannot remember all the details clearly. Daughter reports that yesterday at home, his heart rate was in the 30s and SBP in the 70s. He was noted to be significantly bradycardic in the ED with heart rate in the 30s. EKG showed sinus bradycardia. He was also hypotensive. Given a small fluid bolus due to hypotension. Given 3 doses of Atropine 1mg with brief improvement in heart rate after each dose, but did not sustain a response. Workup also notable for WBC of 11.8, SCr of 2.7, elevated lactate of 2.7, normal TSH level. Echocardiogram in March 2024 shows LVEF 60%. BMP on 04/11/2024 shows SCr was 1.41 and eGFR 50, BUN 25 (obtained from Epic chart). History was obtained from the patient, his medical chart, family members at bedside (his daughter is a nurse here at [place]). Outside medical records ([facility] Epic chart) were personally reviewed. This morning, he was on Dopamine 2.5 mcg/kg/min. When the Dopamine was stopped, his heart rates dipped down to the 40s, therefore, Dopamine was restarted. Amiodarone and Metoprolol have been placed on hold since admission, along with his Eliquis. He was noted to have coffee ground emesis this morning as well by
--- NOTE | 2024-05-27 09:08 | WPDINTPN ---
Progress Note: A&P Assessment and Plan (1) Symptomatic bradycardia: Code(s): R00.1 - Bradycardia, unspecified Status: Acute Assessment and Plan: Symptomatic sinus bradycardia with hypotension which has improved on dopamine infusion Replace magnesium Continue to hold Hold amiodarone and beta-dylon Continue Dopamine infusion titration to keep his heart rate and map at target (2) Acute kidney injury superimposed on CKD: Code(s): N17.9 - Acute kidney failure, unspecified; N18.9 - Chronic kidney disease, unspecified Status: Acute Assessment and Plan: Patient has history of chronic kidney disease although baseline creatinine is unknown the information in the chart. Patient was seen by Nephrology as an outpatient. Nephrology has been consulted. This could be worsened secondary to hypotension from bradycardia and intravascular volume depletion Patient was given cautious amount of IV fluids considering patient is overall volume overloaded Normal CK, urine electrolytes, Renal ultrasound IMPRESSION: 1. Normal right kidney. 2. Left kidney not identified. Monitor intake and output Creatinine has normalized and patient has good urine output (3) Hyperkalemia: Code(s): E87.5 - Hyperkalemia Status: Acute Assessment and Plan: Presented with potassium of 5.1 which has improved with medical treatment Monitor potassium level (4) Peripheral arterial disease: Code(s): I73.9 - Peripheral vascular disease, unspecified Status: Acute Assessment and Plan: Patient has history of peripheral arterial disease status post D[facility] in the right leg at [facility] (5) Afib: Code(s): I48.91 - Unspecified atrial fibrillation Status: Deleted Assessment and Plan: Currently in sinus rhythm but bradycardic hold amiodarone and metoprolol Hold anticoagulation (6) Edema: Code(s): R60.9 - Edema, unspecified Status: Acute Assessment and Plan: Patient is overall volume overloaded and will need diuretics eventually but at this time due to low blood pressure will hold any diuretics due to hypotension (7) GI bleed: Code(s): K92.2 - Gastrointestinal hemorrhage, unspecified Status: Acute Assessment and Plan: Patient had episode of vomiting this morning and nurse reports that it was coffee-ground. Anticoagulation was held and IV Protonix started Patient evaluated by GI and no plan for EGD at this time Monitor hemoglobin which has been stable Continue Plavix since patient had stent in right posterior tibial artery Resume diet (8) Sepsis: Code(s): A41.9 - Sepsis, unspecified organism Status: Acute Assessment and Plan: Patient met criteria for sepsis on arrival in the ER. Patient was not given the fluid bolus due to his overall volume overload His hypotension could be partly explained by the bradycardia and medications that he was on He was started on antibiotics His UA was negative and chest x-ray was clear The right foot is definitely warmer and rhythm it was as compared to left but this could be due to angioplasty with increased perfusion of the right foot and the patient's does not feel and it looks any different Cultures have been sent and and 1/2 blood cultures growing Staph epidermis which is a contaminant Wound Care and Podiatry evaluate the patient procalcitonin level was low at 0.1 CT of the foot No definite evidence of osteomyelitis. Advanced degenerative change at the first metatarsophalangeal joint region. Diffuse subcutaneous soft tissue edema. Correlate for cellulitis versus bland edema. Continue empiric antibiotics for now (9) Nausea & vomiting: Code(s): R11.2 - Nausea with vomiting, unspecified Status: Acute Assessment and Plan: Patient has not had bowel movement for many days. He does have bowel sounds and no tenderness on abdominal exam. CT abdomen pelvis without contrast did not meli
--- NOTE | 2024-05-27 09:25 | PM.PNNEP ---
Progress Note: A&P Assessment and Plan (1) RANDALL (acute kidney injury): Code(s): N17.9 - Acute kidney failure, unspecified Status: Acute Assessment and Plan: improvement noted (if not better than baseline) due to several issues: hemodynamic instability bradycardia prerenal factors diuretic therapy [employer] anemia infection(?) evaluation to date noted: renal u/s without obstruction (unable to visualize left kidney) urine eosinophils negative bland urine sediment urine electrolytes non-prerenal suspect better renal perfusion with dopamine gtt leading to improvement in renal function as well as good urine output... holding diuretics for now (but will likely need to resume) along with Entresto follow trend of repeat labs and UOP (2) Stage 3a chronic kidney disease: Code(s): N18.31 - Chronic kidney disease, stage 3a Status: Chronic Assessment and Plan: creatinine had been running ~ 1.1 - 1.3 since late August 2023 in mid March 2024, creatinine declined with a creatinine of 2.13mg/dl in association with lightheadness and falls this rise in creatinine correlates with use of high dose diuretics (lasix 80mg qday) to treat LE edema diuretics discontinued but LE edema returned resume on lasix at 40mg qday most recent creatinine before this admission = 1.41mg/dl on 04/11/24 presumably related to vascular disease, age-related change, and necessity of diuretic therapy outpatient evaluation only significant for + ANKUSH -- other testing (serologies, SPEP, UPEP...etc.) have been negative to date recently established care with Dr. Brandon regarding renal insufficiency (3) Symptomatic bradycardia: Code(s): R00.1 - Bradycardia, unspecified Status: Acute Assessment and Plan: as noted on admission symptomatic with noted sinus bradycardia associated with hypotension amiodaraone and beta dylon on hold on dopamine gtt currently Cardiology following (4) Sepsis: Code(s): A41.9 - Sepsis, unspecified organism Status: Acute Assessment and Plan: criteria met on presentation follow culture data on empiric antibiotics wound care following follow trend of hemodynamics (5) Edema: Code(s): R60.9 - Edema, unspecified Status: Acute Assessment and Plan: significant issue in the last few months was on oral diuretic therapy prior to admission related to PAD/PVD and possible untreated LUIS; CHF seems less likely given recent Echo with good EF... follow clinical exam (6) Afib: Code(s): I48.91 - Unspecified atrial fibrillation Status: Deleted Assessment and Plan: initially on rate control strategy as well as anticoagulation appears in sinus rhythm but bradycardic previosuly holding amiodarone and metoprolol holding anticoagulation also (see #7) Cardiology recommendations noted (7) GI bleed: Code(s): K92.2 - Gastrointestinal hemorrhage, unspecified Status: Acute Assessment and Plan: reportedly coffee ground emesis earlier on 05/25 AM on IV PPI follow trend of H/H GI following holding anticoagulation and plavix (8) Nausea & vomiting: Code(s): R11.2 - Nausea with vomiting, unspecified Status: Acute Assessment and Plan: noted in the last 24 hours IV antiemetics NPO CT of abd/pelvis results noted Will continue to follow. Subjective Date/time seen: 05/27/24 09:25 Interval history: Follow-up for acute kidney injury/acute renal failure on chronic kidney disease. No apparent distress at the time of my visit; remains on dopamine gtt -- attempts at weaning resulted in hypotension; renal function/creatinine has improved if not better than baseline with good urine output (in negative fluid balance); CT yesterday did not show abdominal obstruction; currently NPO due to previous nausea + vomiting. Exam Narrative: General: elderly Cau
[2024-05-27] MEDS: ALBUMIN HUMAN 25% 25 GM/100 ML 100 ML IVPB ×3 (11:57→23:58)
[2024-05-27 12:17] LABS: Glucose Point of Care 122 mg/dl (65-105)
[2024-05-27 12:20] LABS: Hemoglobin A1C 6.2 % (<5.7)
[2024-05-27] MEDS: PERFLUTREN LIPID MICROSPHERES 1.5 ML VIAL DILUTED TO 10 ML TOTAL VOLUME IV PUSH (13:20)
--- NOTE | 2024-05-27 13:20 | IVDEFINITY ---
Prior to administration of IV Definity the patient was educated on the risks and benefits of the imaging enhancing agent including potential adverse side effects. The patient verbalized understanding. Allergies were verified. No exclusion criteria were identified and at least one of the following inclusion criteria were met: 1) physician request, 2) patient technically difficult to image (per the [place] [employer]ocardi[employer] guidelines of two or more segments not discernable within the apical view), or 3) questionable left ventricular function. ?
[2024-05-27 14:24] LABS: Cortisol Random 6.06 ug/dL
--- NOTE | 2024-05-27 14:28 | WPDPN ---
Progress Note: A&P Assessment and Plan (1) Ulcer of right foot with fat layer exposed: Code(s): L97.512 - Non-pressure chronic ulcer of other part of right foot with fat layer exposed Status: Acute Plan -PAD with non healing ulceration right foot-Will continue with outpatient local wound care. Abx recommended on d/c per medicine/renal. 1/2 blood cx positive for Staph. Epi. -CT negative for abscess/ osteomyelitis -Will continue to follow up until d/c - Wear surgical shoe for ambulation. Subjective Date/time seen: 05/27/24 14:28 Interval history: No pain to the right foot. No FCNV. Exam Skin: Other: Tissue loss the the right lateral forefoot unchanged. Still with fibrotic macerated wound base. Objective Data Vital Signs Vital Signs: Vital Signs - 24 hr 05/26/24 16:00 05/26/24 16:00 05/26/24 15:00 Temperature 36.4 C L Pulse Rate 78 79 79 Respiratory Rate 12 12 Blood Pressure 108/59 L 108/59 L 135/53 L Pulse Oximetry 93 94 Oxygen Delivery Oxygen Flow Rate 05/26/24 16:00 05/26/24 16:00 05/26/24 18:00 Temperature Pulse Rate 78 86 Respiratory Rate Blood Pressure Pulse Oximetry 94 Oxygen Delivery Room Air Oxygen Flow Rate 05/26/24 18:00 05/26/24 18:00 05/26/24 18:36 Temperature Pulse Rate 86 85 86 Respiratory Rate 13 Blood Pressure 98/50 L 98/50 L 95/53 L Pulse Oximetry 94 Oxygen Delivery Oxygen Flow Rate 05/26/24 18:36 05/26/24 20:00 05/26/24 21:45 Temperature Pulse Rate 86 87 85 Respiratory Rate Blood Pressure 95/53 L 98/61 L 98/64 L Pulse Oximetry Oxygen Delivery Oxygen Flow Rate 05/26/24 20:00 05/26/24 20:00 05/26/24 20:00 Temperature 36.4 C Pulse Rate 87 87 Respiratory Rate 13 Blood Pressure 98/61 L Pulse Oximetry 94 94 Oxygen Delivery Room Air Oxygen Flow Rate 05/26/24 22:00 05/26/24 22:00 05/26/24 22:15 Temperature Pulse Rate 82 82 82 Respiratory Rate 13 Blood Pressure 107/78 107/78 Pulse Oximetry 93 Oxygen Delivery Oxygen Flow Rate 05/26/24 22:45 05/26/24 23:00 05/26/24 23:05 Temperature Pulse Rate 81 74 76 Respiratory Rate Blood Pressure 74/48 L 48/37 L 54/41 L Pulse Oximetry Oxygen Delivery Oxygen Flow Rate 05/27/24 00:00 05/27/24 00:00 05/27/24 00:00 Temperature Pulse Rate 88 88 Respiratory Rate Blood Pressure 132/68 Pulse Oximetry 92 Oxygen Delivery Room Air Oxygen Flow Rate 05/27/24 00:00 05/27/24 01:00 05/27/24 01:11 Temperature 36.1 C L Pulse Rate 88 70 90 Respiratory Rate 13 Blood Pressure 128/79 135/64 129/70 Pulse Oximetry 92 Oxygen Delivery Oxygen Flow Rate 05/27/24 01:11 05/27/24 02:53 05/27/24 02:00 Temperature Pulse Rate 90 87 Respiratory Rate Blood Pressure 129/70 Pulse Oximetry 96 Oxygen Delivery Nasal Cannula Oxygen Flow Rate 2 05/27/24 02:00 05/27/24 02:00 05/27/24 02:45 Temperature Pulse Rate 87 87 83 Respiratory Rate 11 L Blood Pressure 114/61 114/61 130/65 Pulse Oximetry 90 Oxygen Delivery Oxygen Flow Rate 05/27/24 03:45 05/27/24 04:00 05/27/24 03:15 Temperature Pulse Rate 86 82 81 Respiratory Rate Blood Pressure 76/40 L 138/75 78/51 L Pulse Oximetry Oxygen Delivery Oxygen Flow Rate 05/27/24 03:30 05/27/24 04:00 05/27/24 04:00 Temperature 36.6 C Pulse Rate 82 85 85 Respiratory Rate 10 L Blood Pressure 77/52 L 138/75 Pulse Oximetry 96 Oxygen Delivery Oxygen Flow Rate 05/27/24 04:00 05/27/24 06:00 05/27/24 06:00 Temperature Pulse Rate 84 84 Respiratory Rate 13 Blood Pressure 142/77 H Pulse Oximetry 96 97 Oxygen Delivery Nasal Cannula Oxygen Flow Rate 2 05/27/24 06:00 05/27/24 08:08 05/27/24 08:08 Temperature Pulse Rate 84 90 90 Respiratory Rate Blood Pressure 142/77 H 116/69 116/69 Pulse Oximetry Oxygen Delivery Oxygen Flow Rate
[2024-05-27 16:40] LABS: Glucose Point of Care 131 mg/dl (65-105)
--- NOTE | 2024-05-27 16:49 | WPDGIPROGNO ---
Progress Note: A&P Assessment and Plan (1) Coffee ground emesis: Code(s): K92.0 - Hematemesis Status: Acute Assessment and Plan: h/h stable, no more obvious bleeding and he is eating more today continue only with medical management since he is feeling better iv protonix, holding eliquis, ok to use plavix high risk for anesthesia- still on dopamine gtt hold off EGD will follow as needed (2) Nausea & vomiting: Code(s): R11.2 - Nausea with vomiting, unspecified Status: Acute Assessment and Plan: improved, no more bleeding (3) Acute blood loss anemia: Code(s): D62 - Acute posthemorrhagic anemia Status: Acute Assessment and Plan: h/h stable now (4) Symptomatic bradycardia: Code(s): R00.1 - Bradycardia, unspecified Status: Acute Assessment and Plan: on dopamine by cardiology (5) Pneumonia: Code(s): J18.9 - Pneumonia, unspecified organism Status: Acute Assessment and Plan: on abx Subjective Date/time seen: 05/27/24 16:49 Interval history: he ate today, had emesis yesterday but no today family member at bedside Review of Systems Review of Systems: All systems reviewed & are unremarkable except as noted in HPI and below Exam Narrative: General: Pt is alert awake and in NAD Lungs/Chest: Trachea central Clear BS B/L, No crackles or wheezing. Cardiac: Regular rate and rhythm. Normal S1 S2. No murmurs Circulation: Left foot is cold but right foot is warm and Abdomen: Normal bowel sounds.. Soft. NT. ND. Extremities: Bilateral diffuse pitting edema in both legs : [place]al[place] in place Neurologic: Follows commands. Moves all 4 extremities PERRL AO x3 Skin: no new rash Bruising on skin on both arms. Objective Data Vital Signs Vital Signs: Vital Signs - 24 hr 05/26/24 18:00 05/26/24 18:00 05/26/24 18:00 Temperature Pulse Rate 86 86 85 Respiratory Rate 13 Blood Pressure 98/50 L 98/50 L Pulse Oximetry 94 Oxygen Delivery Oxygen Flow Rate 05/26/24 18:36 05/26/24 18:36 05/26/24 20:00 Temperature Pulse Rate 86 86 87 Respiratory Rate Blood Pressure 95/53 L 95/53 L 98/61 L Pulse Oximetry Oxygen Delivery Oxygen Flow Rate 05/26/24 21:45 05/26/24 20:00 05/26/24 20:00 Temperature 97.6 F Pulse Rate 85 87 87 Respiratory Rate 13 Blood Pressure 98/64 L 98/61 L Pulse Oximetry 94 Oxygen Delivery Oxygen Flow Rate 05/26/24 20:00 05/26/24 22:00 05/26/24 22:00 Temperature Pulse Rate 82 82 Respiratory Rate 13 Blood Pressure 107/78 Pulse Oximetry 94 93 Oxygen Delivery Room Air Oxygen Flow Rate 05/26/24 22:15 05/26/24 22:45 05/26/24 23:00 Temperature Pulse Rate 82 81 74 Respiratory Rate Blood Pressure 107/78 74/48 L 48/37 L Pulse Oximetry Oxygen Delivery Oxygen Flow Rate 05/26/24 23:05 05/27/24 00:00 05/27/24 00:00 Temperature Pulse Rate 76 88 Respiratory Rate Blood Pressure 54/41 L 132/68 Pulse Oximetry 92 Oxygen Delivery Room Air Oxygen Flow Rate 05/27/24 00:00 05/27/24 00:00 05/27/24 01:00 Temperature 97.0 F L Pulse Rate 88 88 70 Respiratory Rate 13 Blood Pressure 128/79 135/64 Pulse Oximetry 92 Oxygen Delivery Oxygen Flow Rate 05/27/24 01:11 05/27/24 01:11 05/27/24 02:53 Temperature Pulse Rate 90 90 Respiratory Rate Blood Pressure 129/70 129/70 Pulse Oximetry 96 Oxygen Delivery Nasal Cannula Oxygen Flow Rate 2 05/27/24 02:00 05/27/24 02:00 05/27/24 02:00 Temperature Pulse Rate 87 87 87 Respiratory Rate 11 L Blood Pressure 114/61 114/61 Pulse Oximetry 90 Oxygen Delivery Oxygen Flow Rate 05/27/24 02:45 05/27/24 03:45 05/27/24 04:00 Temperature Pulse Rate 83 86 82 Respiratory Rate Blood Pressure 130/65 76/40 L 138/75 Pulse Oximetry Oxygen Delivery Oxygen Flow Rate 05/27/24 03:15 05/27/24 03:30 05/27/24
[2024-05-27 20:59] LABS: Glucose Point of Care 119 mg/dl (65-105)
[2024-05-28] VITALS (22 sets, daily range): BP systolic 74–141; BP diastolic 52–101; PULSE 58–85; RESP 10–18; TEMP 36.2–36.8; O2SAT 92–100
[2024-05-28] MEDS: CEFEPIME 1 GM/NS 50 ML 1 GM/50 ML BAG IVPB ×2 (00:02→20:37)
[2024-05-28] MEDS: DOPamine 400 MG/D5W 250 ML 400 MG/250 ML BAG 12.28 MG IV CONT (00:15)
[2024-05-28] MEDS: CENTRAL LINE FLUSH 10 ML IV PUSH ×3 (05:20→21:14)
[2024-05-28] MEDS: ALBUMIN HUMAN 25% 25 GM/100 ML 100 ML IVPB (05:20)
[2024-05-28] MEDS: LEVOTHYROXINE SODIUM 150 MCG TABLET PO (05:33)
[2024-05-28 06:45] LABS: Hematocrit 29.5 % (42.0-52.0); Hemoglobin 9.7 g/dL (14.0-18.0); Mean Corpuscular HGB Conc 32.9 g/dl (32-36); Mean Corpuscular Hemoglobin 32.3 pg (26-34); Mean Corpuscular Volume 98.3 fl (80-100); Mean Platelet Volume 11.1 fl (7.4-10.4); Platelet Count Result 173 k/mm3 (150-375); Red Cell Distribution Width 13.3 % (11.5-14.5); White Blood Count 6.6 K/mm3 (4.5-10.0)
[2024-05-28 06:52] LABS: Alanine Aminotransferase 90 U/L (6-50); Albumin Level 3.6 g/dL (3.5-5.1); Alkaline Phosphatase 102 U/L (38-126); Anion Gap 7 mmol/L (4-12); Aspartate Amino Transferase 63 U/L (17-59); Bilirubin,Total 1.2 mg/dL (0.2-1.3); Blood Urea Nitrogen 21 mg/dL (9-20); Calcium 8.9 mg/dL (8.4-10.2); Carbon Dioxide 27 mmol/L (22-30); Chloride 100 mmol/L (98-107); Estimated CRCL calculation 55 ml/min; Estimated Glomerular Filt Rate 53; Glucose 110 mg/dL (65-110); Phosphorus 2.5 mg/dL (2.5-4.5); Potassium 4.1 mmol/L (3.4-5.0); Sodium 134 mmol/L (137-145)
--- NOTE | 2024-05-28 07:26 | PM.PNCARD ---
Progress Note: A&P Assessment and Plan (1) Paroxysmal atrial fibrillation: Code(s): I48.0 - Paroxysmal atrial fibrillation Status: Acute Plan 79-year-old man with history of atrial fibrillation last year and tachycardia mediated cardiomyopathy. This improved markedly following moravian of sinus rhythm. He enters the hospital with symptomatic hypotension. Beta-dylon and ARNI have been stopped. His dopamine is now at low dosage. That should be able to wean off today. Need to resume maintenance dose of amiodarone. It is very important to maintain sinus rhythm in this gentleman as his left ventricular function was severely compromised last year when he was is atrial fibrillation. The patient has significant lower extremity vascular disease and has undergone arterialization of his vein and I believe for that reason he has persistent lower extremity edema. This will not resolve with aggressive diuresis. Lamberto Marin MD [facility] Subjective Date/time seen: Date of service: 05/28/24 07:26 Interval history: Reason for visit: Bradycardia HPI: We are consulted for bradycardia. This is an 79 year old male with the following history: 1. Heart failure with improved LVEF. Previously, LVEF was 30% with subsequent normalization of LVEF in November 2023. 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 2. Paroxysmal atrial fibrillation on Eliquis, s/p cardioversion 3. Severe peripheral vascular disease. Chronic wound of the right foot s/p skin graft application to the right foot on 05/09/2024. 4. Hyperlipidemia Adolfo is a patient of Dr. Marin's. He presented to [facility] 05/24 for weakness and multiple falls. Family reports that he has had about 6 falls this year. Last fall on . His post op right shoe got caught on the corner of the hallway, and thinks that is what caused his fall. He does not believe he has lost consciousness during any of these falls, but he cannot remember all the details clearly. Daughter reports that yesterday at home, his heart rate was in the 30s and SBP in the 70s. He was noted to be significantly bradycardic in the ED with heart rate in the 30s. EKG showed sinus bradycardia. He was also hypotensive. Given a small fluid bolus due to hypotension. Given 3 doses of Atropine 1mg with brief improvement in heart rate after each dose, but did not sustain a response. Workup also notable for WBC of 11.8, SCr of 2.7, elevated lactate of 2.7, normal TSH level. Echocardiogram in March 2024 shows LVEF 60%. BMP on 04/11/2024 shows SCr was 1.41 and eGFR 50, BUN 25 (obtained from Epic chart). History was obtained from the patient, his medical chart, family members at bedside (his daughter is a nurse here at [facility]). Outside medical records ([facility] Epic chart) were personally reviewed. This morning, he was on Dopamine 2.5 mcg/kg/min. When the Dopamine was stopped, his heart rates dipped down to the 40s, therefore, Dopamine was restarted. Amiodarone and Metoprolol have been placed on hold since admission, along with his Eliquis. He was noted to have coffee ground emesis this morning as well by the nursing staff. Date of service 05/26: History of atrial fibrillation and tachycardia mediated cardiomyopathy with diagnosis in the summer of 2022. Following institution of guideline directed medical therapy for low ejection fraction and cardioversion following loading with amiodarone his left ventricular ejection fraction normalized and he improved considerably. Patient also has extensive lower extremity peripheral vascular disease and has recently undergone percutaneous arterialization of the lower extremity veins. After this he has developed substantial lower extremity edema. Patient was admitted with problematic hypotension/bradycardia. His amiodarone and metoprolol have been held and his hemodynamics have been supported with dopamine. This morning the patient feels nauseated no other complaints.
[2024-05-28 07:50] LABS: Glucose Point of Care 116 mg/dl (65-105)
[2024-05-28] MEDS: CLOPIDOGREL BISULFATE 75 MG TABLET PO (08:04)
[2024-05-28] MEDS: CHOLECALCIFEROL 1,000 UNITS TABLET 2000 UNITS PO (08:04)
[2024-05-28] MEDS: AMIODARONE HCL 200 MG TABLET PO (08:04)
[2024-05-28] MEDS: MIDODRINE HCL 10 MG TABLET PO ×3 (08:04→16:44)
[2024-05-28] MEDS: PANTOPRAZOLE SODIUM IV 40 MG VIAL IV PUSH ×2 (08:04→20:42)
[2024-05-28] MEDS: HYDROCORTISONE SODIUM SUCCINATE 100 MG/2 ML VIAL IV PUSH ×3 (08:49→21:14)
--- NOTE | 2024-05-28 09:11 | WPDINTPN ---
Progress Note: A&P Assessment and Plan (1) Symptomatic bradycardia: Code(s): R00.1 - Bradycardia, unspecified Status: Acute Assessment and Plan: Symptomatic sinus bradycardia with hypotension which has improved on dopamine infusion electrolytes replaced cardiology has restarted amiodarone at low-dose Continue Dopamine infusion titration to keep his heart rate and map at target (2) Acute kidney injury superimposed on CKD: Code(s): N17.9 - Acute kidney failure, unspecified; N18.9 - Chronic kidney disease, unspecified Status: Acute Assessment and Plan: Patient has history of chronic kidney disease although baseline creatinine is unknown the information in the chart. Patient was seen by Nephrology as an outpatient. Nephrology has been consulted. This could be worsened secondary to hypotension from bradycardia and intravascular volume depletion Patient was given cautious amount of IV fluids considering patient is overall volume overloaded Normal CK, urine electrolytes, Renal ultrasound IMPRESSION: 1. Normal right kidney. 2. Left kidney not identified. Monitor intake and output Creatinine has normalized and patient has good urine output (3) Hyperkalemia: Code(s): E87.5 - Hyperkalemia Status: Acute Assessment and Plan: Presented with potassium of 5.1 which has improved with medical treatment Monitor potassium level (4) Peripheral arterial disease: Code(s): I73.9 - Peripheral vascular disease, unspecified Status: Acute Assessment and Plan: Patient has history of peripheral arterial disease status post DVA in the right leg at [facility] (5) Afib: Code(s): I48.91 - Unspecified atrial fibrillation Status: Deleted Assessment and Plan: Currently in sinus rhythm but bradycardic hold amiodarone and metoprolol holding anticoagulation due to suspected GI bleed (6) Edema: Code(s): R60.9 - Edema, unspecified Status: Acute Assessment and Plan: Patient is overall volume overloaded and will need diuretics eventually but at this time due to low blood pressure will hold any diuretics due to hypotension (7) GI bleed: Code(s): K92.2 - Gastrointestinal hemorrhage, unspecified Status: Acute Assessment and Plan: Patient had episode of vomiting this morning and nurse reports that it was coffee-ground. Anticoagulation was held and IV Protonix started Patient evaluated by GI and no plan for EGD at this time Monitor hemoglobin which has been stable Continue Plavix since patient had stent in right posterior tibial artery tolerating diet (8) Sepsis: Code(s): A41.9 - Sepsis, unspecified organism Status: Acute Assessment and Plan: Patient met criteria for sepsis on arrival in the ER. Patient was not given the fluid bolus due to his overall volume overload His hypotension could be partly explained by the bradycardia and medications that he was on He was started on antibiotics His UA was negative and chest x-ray was clear The right foot is definitely warmer and rhythm it was as compared to left but this could be due to angioplasty with increased perfusion of the right foot and the patient's does not feel and it looks any different Cultures have been sent and and 1/2 blood cultures growing Staph epidermis which is a contaminant Wound Care and Podiatry evaluate the patient procalcitonin level was low at 0.1 CT of the foot No definite evidence of osteomyelitis. Advanced degenerative change at the first metatarsophalangeal joint region. Diffuse subcutaneous soft tissue edema. Correlate for cellulitis versus bland edema. Continue empiric cefepime (9) Nausea & vomiting: Code(s): R11.2 - Nausea with vomiting, unspecified Status: Acute Assessment and Plan: Patient has not had bowel movement for many days. He does have bowel sounds and no tenderness on abdominal exam. CT abdomen pelvis
[2024-05-28 11:57] LABS: Glucose Point of Care 138 mg/dl (65-105)
--- NOTE | 2024-05-28 13:17 | PCFNICU ---
ICU Rounding Note: Pt current nutrition is Heart Healthy. Nutrition recommendation: Ensure Compact BID. Last recorded weight is 129.3 kg Bowel Motility: No BM reported. Labs Reviewed:BUN 21, GFR 53, Na 134, HbA1c 6.2% Meds Noted: Dopamine, Lasix, Protonix. Skin: WNL Additional Notes: During ICU rounds, nursing reports patient has been having a poor appetite. orders for Ensure compact BID for additional 220 kcals and 9 gm protein. Heart Healthy diet intake 50-75% of meals. Agree with diet orders. Following daily in ICU rounds.
--- NOTE | 2024-05-28 13:26 | P.PNNP_ITS ---
Progress Note: A&P Assessment and Plan (1) RANDALL (acute kidney injury): Code(s): N17.9 - Acute kidney failure, unspecified Status: Acute Assessment and Plan: * improvement noted (if not better than baseline) * due to several issues: * hemodynamic instability * bradycardia * prerenal factors * diuretic therapy [employer] * anemia * infection(?) * evaluation to date noted: * renal u/s without obstruction (unable to visualize left kidney) * urine eosinophils negative * bland urine sediment * urine electrolytes non-prerenal * suspect better renal perfusion with dopamine gtt leading to improvement in renal function as well as good urine output... * holding diuretics for now (but will likely need to resume) along with Entresto * follow trend of repeat labs and UOP (2) Stage 3a chronic kidney disease: Code(s): N18.31 - Chronic kidney disease, stage 3a Status: Chronic Assessment and Plan: * creatinine had been running ~ 1.1 - 1.3 since late August 2023 * in mid March 2024, creatinine declined with a creatinine of 2.13mg/dl in association with lightheadness and falls * this rise in creatinine correlates with use of high dose diuretics (lasix 80mg qday) to treat LE edema * diuretics discontinued but LE edema returned * resume on lasix at 40mg qday * most recent creatinine before this admission = 1.41mg/dl on 04/11/24 * presumably related to vascular disease, age-related change, and necessity of diuretic therapy * outpatient evaluation only significant for + ANKUSH -- other testing (serologies, SPEP, UPEP...etc.) have been negative to date * recently established care with Dr. Brandon regarding renal insufficiency (3) Symptomatic bradycardia: Code(s): R00.1 - Bradycardia, unspecified Status: Acute Assessment and Plan: * as noted on admission * symptomatic with noted sinus bradycardia associated with hypotension * amiodaraone and beta dylon on hold * on dopamine gtt currently * Cardiology following (4) Sepsis: Code(s): A41.9 - Sepsis, unspecified organism Status: Acute Assessment and Plan: * criteria met on presentation * follow culture data * on empiric antibiotics * wound care following * follow trend of hemodynamics (5) Edema: Code(s): R60.9 - Edema, unspecified Status: Acute Assessment and Plan: * significant issue in the last few months * was on oral diuretic therapy prior to admission * related to PAD/PVD and possible untreated LUIS; CHF seems less likely given recent Echo with good EF... * follow clinical exam (6) Afib: Code(s): I48.91 - Unspecified atrial fibrillation Status: Deleted Assessment and Plan: * initially on rate control strategy as well as anticoagulation * appears in sinus rhythm but bradycardic previosuly * holding amiodarone and metoprolol * holding anticoagulation also (see #7) * Cardiology recommendations noted (7) GI bleed: Code(s): K92.2 - Gastrointestinal hemorrhage, unspecified Status: Acute Assessment and Plan: * reportedly coffee ground emesis earlier on 8/25 AM * on IV PPI * follow trend of H/H * GI following * holding anticoagulation and plavix (8) Nausea & vomiting: Code(s): R11.2 - Nausea with vomiting, unspecified Status: Acute Assessment and Plan: * noted in the last 24 hours * IV antiemetics * NPO * CT of abd/pelvis results noted Not much else to add at this time --
--- NOTE | 2024-05-28 13:26 | PM.PNNEP ---
Progress Note: A&P Assessment and Plan (1) RANDALL (acute kidney injury): Code(s): N17.9 - Acute kidney failure, unspecified Status: Acute Assessment and Plan: improvement noted (if not better than baseline) due to several issues: hemodynamic instability bradycardia prerenal factors diuretic therapy [employer]ER [employer]ERTER anemia infection(?) evaluation to date noted: renal u/s without obstruction (unable to visualize left kidney) urine eosinophils negative bland urine sediment urine electrolytes non-prerenal suspect better renal perfusion with dopamine gtt leading to improvement in renal function as well as good urine output... holding diuretics for now (but will likely need to resume) along with Entresto follow trend of repeat labs and UOP (2) Stage 3a chronic kidney disease: Code(s): N18.31 - Chronic kidney disease, stage 3a Status: Chronic Assessment and Plan: creatinine had been running ~ 1.1 - 1.3 since late August 2023 in mid March 2024, creatinine declined with a creatinine of 2.13mg/dl in association with lightheadness and falls this rise in creatinine correlates with use of high dose diuretics (lasix 80mg qday) to treat LE edema diuretics discontinued but LE edema returned resume on lasix at 40mg qday most recent creatinine before this admission = 1.41mg/dl on 04/11/24 presumably related to vascular disease, age-related change, and necessity of diuretic therapy outpatient evaluation only significant for + ANKUSH -- other testing (serologies, SPEP, UPEP...etc.) have been negative to date recently established care with Dr. Brandon regarding renal insufficiency (3) Symptomatic bradycardia: Code(s): R00.1 - Bradycardia, unspecified Status: Acute Assessment and Plan: as noted on admission symptomatic with noted sinus bradycardia associated with hypotension amiodaraone and beta dylon on hold on dopamine gtt currently Cardiology following (4) Sepsis: Code(s): A41.9 - Sepsis, unspecified organism Status: Acute Assessment and Plan: criteria met on presentation follow culture data on empiric antibiotics wound care following follow trend of hemodynamics (5) Edema: Code(s): R60.9 - Edema, unspecified Status: Acute Assessment and Plan: significant issue in the last few months was on oral diuretic therapy prior to admission related to PAD/PVD and possible untreated LUIS; CHF seems less likely given recent Echo with good EF... follow clinical exam (6) Afib: Code(s): I48.91 - Unspecified atrial fibrillation Status: Deleted Assessment and Plan: initially on rate control strategy as well as anticoagulation appears in sinus rhythm but bradycardic previosuly holding amiodarone and metoprolol holding anticoagulation also (see #7) Cardiology recommendations noted (7) GI bleed: Code(s): K92.2 - Gastrointestinal hemorrhage, unspecified Status: Acute Assessment and Plan: reportedly coffee ground emesis earlier on 05/25 AM on IV PPI follow trend of H/H GI following holding anticoagulation and plavix (8) Nausea & vomiting: Code(s): R11.2 - Nausea with vomiting, unspecified Status: Acute Assessment and Plan: noted in the last 24 hours IV antiemetics NPO CT of abd/pelvis results noted Not much else to add at this time -- will continue to follow intermittently. Subjective Date/time seen: 05/28/24 13:26 Interval history: Follow-up for acute kidney injury/acute renal failure on chronic kidney disease. Renal function/creatinine is relatively stable if not better than baseline in association with good urine output; overall, he reports feeling better in general; remains on low dose dopamine to maintain blood pressure/MAP; Exam Narrative: General: elderly male in NAD Heart: normal S1 and S2; no rub Lungs: c
[2024-05-28 16:22] LABS: Glucose Point of Care 151 mg/dl (65-105)
--- NOTE | 2024-05-28 19:40 | PM.IMPN ---
Progress Note: A&P Assessment and Plan (1) Symptomatic bradycardia: Code(s): R00.1 - Bradycardia, unspecified Status: Acute Assessment and Plan: Symptomatic sinus bradycardia with hypotension which has improved on dopamine infusion Treated with atropine and Ca Gluconate in ED Electrolytes replaced Cardiology consulted and appreciate their input. Amiodarone restarted today at low-dose Continue Dopamine infusion titration to keep his heart rate and map at target (2) Sepsis: Code(s): A41.9 - Sepsis, unspecified organism Status: Acute Assessment and Plan: Patient met criteria for sepsis on arrival in the ER. Patient was not given the fluid bolus due to his overall volume overload His hypotension could be partly explained by the bradycardia and medications that he was on He was started on Vanco then cefepime once approrpiate cultures obtained. UA was negative and CXR was clear Concern for right foot cellulitis. BCx growing Staph epidermidis in aerobic bottle only. 2nd set NGTD (felt to be a contaminant) Wound Care and Podiatry evaluate the patient PCT level was low at 0.1 CT of the foot showing no evidence of osteomyelitis. Continue abx (3) Hypotension: Code(s): I95.9 - Hypotension, unspecified Status: Acute Assessment and Plan: Patient with HoTN on admisison. He was started on low-dose dopamine to keep MAP at target level. He does have a history of low blood pressure at baseline. Beta-dylon and Entresto on hold. 25% albumin was added Midodrine added Cortisol level was only 6.06 so stress dose hydrocortisone started today (4) Acute kidney injury superimposed on CKD: Code(s): N17.9 - Acute kidney failure, unspecified; N18.9 - Chronic kidney disease, unspecified Status: Acute Assessment and Plan: Patient has history of CKD. Baseline creatinine is unknown. Nephrology was consulted and appreciate their input. Probably related to the bradycardia, HoTN and sepsis Renal US normal right kidney but left kidney not identified. TCK normal. Patient was given cautious amount of IV fluids considering patient is overall volume overloaded Cr 2.7 on admission but has improved to 1.3 today. Monitor UOP, renal fxn and electrolytes (5) Hyperkalemia: Code(s): E87.5 - Hyperkalemia Status: Acute Assessment and Plan: Presented with potassium of 5.1 which has improved with medical treatment Related to RANDALL Monitor potassium level (6) Peripheral arterial disease: Code(s): I73.9 - Peripheral vascular disease, unspecified Status: Acute Assessment and Plan: Patient has history of peripheral arterial disease status post DVA in the right leg at [facility] Continue Plavix. (7) Afib: Code(s): I48.91 - Unspecified atrial fibrillation Status: Deleted Assessment and Plan: Currently in sinus rhythm but bradycardic so amiodarone and metoprolol held Holding anticoagulation due to suspected GI bleed Cardiology re-introducing Amio today Follow closely (8) Edema: Code(s): R60.9 - Edema, unspecified Status: Acute Assessment and Plan: Patient is overall volume overloaded and will need diuresis when BP better. (9) GI bleed: Code(s): K92.2 - Gastrointestinal hemorrhage, unspecified Status: Acute Assessment and Plan: Patient had episode of vomiting this morning and nurse reports that it was coffee-ground. Anticoagulation was held and IV Protonix started Patient evaluated by GI and no plan for EGD at this time Monitor hemoglobin which has been stable Continue Plavix since patient had stent in right posterior tibial artery Tolerating diet withotu recurrence (10) Nausea & vomiting: Code(s): R11.2 - Nausea with vomiting, unspecified Status: Acute Assessment and Plan: Patient has not had bowel movement for many days. CT abdomen pelvis
[2024-05-28] MEDS: DOPamine 400 MG/D5W 250 ML 400 MG/250 ML BAG IV CONT (20:36)
[2024-05-28 20:49] LABS: Glucose Point of Care 172 mg/dl (65-105)
[2024-05-29] VITALS (54 sets, daily range): BP systolic 50–156; BP diastolic 36–105; PULSE 57–106; RESP 11–18; TEMP 34.8–36.6; O2SAT 91–100; BMI 38.9
[2024-05-29] MEDS: ONDANSETRON INJ 4 MG/2 ML VIAL IV PUSH (01:30)
--- NOTE | 2024-05-29 01:45 | PC.NURSE ---
Patient had episode of Nausea and small amount of emesis. Zofran given. Temperature checked, patient temperature 94.6 orally and axillary. Ada hugger applied. Patient alert and orented x3. States nausea has subsided.
[2024-05-29] MEDS: TRIMETHOBENZAMIDE HCL 200 MG/2 ML VIAL IM (03:44)
--- NOTE | 2024-05-29 03:44 | PC.NURSE ---
Patient had 2nd episode of nausea and small emesis. Patient had received zofran earlier. Dr. Ortiz notified. [place] to give Tigan 200mg x1 IM.
[2024-05-29 04:14] LABS: Hematocrit 28.9 % (42.0-52.0); Hemoglobin 9.7 g/dL (14.0-18.0); Mean Corpuscular HGB Conc 33.6 g/dl (32-36); Mean Corpuscular Hemoglobin 32.3 pg (26-34); Mean Corpuscular Volume 96.3 fl (80-100); Mean Platelet Volume 11.1 fl (7.4-10.4); Platelet Count Result 216 k/mm3 (150-375); Red Cell Distribution Width 13.3 % (11.5-14.5); White Blood Count 9.2 K/mm3 (4.5-10.0)
[2024-05-29 04:25] LABS: Alanine Aminotransferase 90 U/L (6-50); Albumin Level 3.3 g/dL (3.5-5.1); Alkaline Phosphatase 101 U/L (38-126); Anion Gap 9 mmol/L (4-12); Aspartate Amino Transferase 70 U/L (17-59); Bilirubin,Total 0.9 mg/dL (0.2-1.3); Blood Urea Nitrogen 23 mg/dL (9-20); Calcium 9.3 mg/dL (8.4-10.2); Carbon Dioxide 24 mmol/L (22-30); Chloride 100 mmol/L (98-107); Estimated CRCL calculation 56 ml/min; Estimated Glomerular Filt Rate 53; Glucose 135 mg/dL (65-110); Magnesium 1.9 mg/dL (1.6-2.3); Sodium 133 mmol/L (137-145)
[2024-05-29] MEDS: METOCLOPRAMIDE HCL INJ 10 MG/2 ML VIAL IV PUSH (06:13)
[2024-05-29] MEDS: CENTRAL LINE FLUSH 10 ML IV PUSH ×3 (06:13→21:40)
[2024-05-29] MEDS: HYDROCORTISONE SODIUM SUCCINATE 100 MG/2 ML VIAL IV PUSH ×3 (06:13→21:40)
--- NOTE | 2024-05-29 08:28 | PCPTNOTE ---
The patient treatment was not able to be completed at this time. RN reports patient had a slight change in medical condition overnight. RN requested to hold PT this morning. Will plan to continue treatment per plan of care.
--- NOTE | 2024-05-29 08:42 | PCOTNOTE ---
Per RN, no therapy this A.M. RN asked if we could try back this afternoon.
[2024-05-29] MEDS: NOREPINEPHRINE 8 MG/D5W 250 ML 8 MG/250 ML BAG 9.38 MG IV CONT (09:30)
[2024-05-29] MEDS: CEFEPIME 1 GM/NS 50 ML 1 GM/50 ML BAG IVPB (09:38)
[2024-05-29] MEDS: PANTOPRAZOLE SODIUM IV 40 MG VIAL IV PUSH ×2 (09:38→21:40)
[2024-05-29 09:50] LABS: Glucose Point of Care 126 mg/dl (65-105)
--- NOTE | 2024-05-29 09:52 | PM.PNCARD ---
Progress Note: A&P Assessment and Plan (1) Paroxysmal atrial fibrillation: Code(s): I48.0 - Paroxysmal atrial fibrillation Status: Acute Plan 79-year-old man with history of atrial fibrillation last year and tachycardia mediated cardiomyopathy. This improved markedly following catholic of sinus rhythm. He enters the hospital with symptomatic hypotension. Beta-dylon and ARNI have been stopped. His dopamine was weaned off but he became significantly hypotensive so he is now on norepinephrine at 6 mcg/min. Amiodarone has been resumed at a low dose and he is maintaining sinus rhythm. It is very important to maintain sinus rhythm in this gentleman as his left ventricular function was severely compromised last year when he was is atrial fibrillation. Subjective Date/time seen: 05/29/24 09:52 Interval history: Reason for visit: Bradycardia HPI: We are consulted for bradycardia. This is an 79 year old male with the following history: 1. Heart failure with improved LVEF. Previously, LVEF was 30% with subsequent normalization of LVEF in November 2023. 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 2. Paroxysmal atrial fibrillation on Eliquis, s/p cardioversion 3. Severe peripheral vascular disease. Chronic wound of the right foot s/p skin graft application to the right foot on 05/09/2024. 4. Samir Mata is a patient of Dr. Marin's. He presented to [facility] 05/24 for weakness and multiple falls. Family reports that he has had about 6 falls this year. Last fall on . His post op right shoe got caught on the corner of the hallway, and thinks that is what caused his fall. He does not believe he has lost consciousness during any of these falls, but he cannot remember all the details clearly. Daughter reports that yesterday at home, his heart rate was in the 30s and SBP in the 70s. He was noted to be significantly bradycardic in the ED with heart rate in the 30s. EKG showed sinus bradycardia. He was also hypotensive. Given a small fluid bolus due to hypotension. Given 3 doses of Atropine 1mg with brief improvement in heart rate after each dose, but did not sustain a response. Workup also notable for WBC of 11.8, SCr of 2.7, elevated lactate of 2.7, normal TSH level. Echocardiogram in March 2024 shows LVEF 60%. BMP on 04/11/2024 shows SCr was 1.41 and eGFR 50, BUN 25 (obtained from Epic chart). History was obtained from the patient, his medical chart, family members at bedside (his daughter is a nurse here at [facility]). Outside medical records ([facility] Epic chart) were personally reviewed. This morning, he was on Dopamine 2.5 mcg/kg/min. When the Dopamine was stopped, his heart rates dipped down to the 40s, therefore, Dopamine was restarted. Amiodarone and Metoprolol have been placed on hold since admission, along with his Eliquis. He was noted to have coffee ground emesis this morning as well by the nursing staff. Date of service 05/26: History of atrial fibrillation and tachycardia mediated cardiomyopathy with diagnosis in the summer. Following institution of guideline directed medical therapy for low ejection fraction and cardioversion following loading with amiodarone his left ventricular ejection fraction normalized and he improved considerably. Patient also has extensive lower extremity peripheral vascular disease and has recently undergone percutaneous arterialization of the lower extremity veins. After this he has developed substantial lower extremity edema. Patient was admitted with problematic hypotension/bradycardia. His amiodarone and metoprolol have been held and his hemodynamics have been supported with dopamine. This morning the patient feels nauseated no other complaints. Date of service 05/27: Heart rates are doing okay, however, he gets hypotensive when the Dopamine was off, therefore, restarted. Currently on Dopamine 5 mcg/kg/min. Evaluated by Podiatry yesterday -- the chanda
[2024-05-29] MEDS: ENOXAPARIN 40 MG/0.4 ML SYRINGE SUB-Q (10:39)
--- NOTE | 2024-05-29 11:39 | WPDINTPN ---
Progress Note: A&P Assessment and Plan (1) Sepsis: Code(s): A41.9 - Sepsis, unspecified organism Status: Acute Assessment and Plan: Patient met criteria for sepsis on arrival in the ER. Patient was not given the fluid bolus due to his overall volume overload His hypotension could be partly explained by the bradycardia and medications that he was on He was started on antibiotics His UA was negative and chest x-ray was clear -05/24: Blood cultures growing Staph epidermidis 1/2 bottles The right foot is definitely warmer and rhythm it was as compared to left but this could be due to angioplasty with increased perfusion of the right foot and the patient's and daughter does not feel and it looks any different Wound Care and Podiatry evaluated the patient procalcitonin level was low at 0.1 -will increase cefepime to 2 g q.12 hours (05/29) -currently in shock, septic versus cardiogenic, dopamine switched to fed 05/26: CT of the foot No definite evidence of osteomyelitis. Advanced degenerative change at the first metatarsophalangeal joint region. Diffuse subcutaneous soft tissue edema. Correlate for cellulitis versus bland edema. (2) Symptomatic bradycardia: Code(s): R00.1 - Bradycardia, unspecified Status: Acute Assessment and Plan: RESOLVED Symptomatic sinus bradycardia with hypotension which has improved on dopamine infusion electrolytes replaced cardiology has restarted amiodarone at low-dose, currently on hold due to NPO an NG tube due to probable SBO (3) Acute kidney injury superimposed on CKD: Code(s): N17.9 - Acute kidney failure, unspecified; N18.9 - Chronic kidney disease, unspecified Status: Acute Assessment and Plan: Patient has history of chronic kidney disease although baseline creatinine is unknown the information in the chart. Patient was seen by Nephrology as an outpatient. Nephrology has been consulted. This could be worsened secondary to hypotension from bradycardia and intravascular volume depletion Patient was given cautious amount of IV fluids considering patient is overall volume overloaded Normal CK, urine electrolytes, Renal ultrasound: 1. Normal right kidney.2. Left kidney not identified. Monitor intake and output Creatinine has normalized and patient has good urine output (4) Hyperkalemia: Code(s): E87.5 - Hyperkalemia Status: Acute Assessment and Plan: RESOLVED Presented with potassium of 5.1 which has improved with medical treatment Monitor potassium level (5) Peripheral arterial disease: Code(s): I73.9 - Peripheral vascular disease, unspecified Status: Acute Assessment and Plan: Patient has history of peripheral arterial disease status post DVA (Deep venous arterialization) in the right leg at [facility] (6) Afib: Code(s): I48.91 - Unspecified atrial fibrillation Status: Deleted Assessment and Plan: Currently in sinus rhythm rate controlled -cardiology did start patient amiodarone on 05/28, due to emesis and possible small-bowel obstruction, NG tube is in place to low intermittent suction -will hold amiodarone for for now - holding anticoagulation due to suspected GI bleed (7) Edema: Code(s): R60.9 - Edema, unspecified Status: Acute Assessment and Plan: Patient is overall volume overloaded and will need diuretics eventually but at this time due to low blood pressure will hold any diuretics due to hypotension/shock (8) GI bleed: Code(s): K92.2 - Gastrointestinal hemorrhage, unspecified Status: Acute Assessment and Plan: 03/26: Patient had episode of vomiting this morning and nurse reports that it was coffee-ground.Anticoagulation was held and IV Protonix started -Patient evaluated by GI and no plan for EGD at this time -Monitor hemoglobin which has been stable -on Plavix since patient had stent in right posterior tibial artery (currently on h
[2024-05-29 12:15] LABS: Glucose Point of Care 143 mg/dl (65-105)
--- NOTE | 2024-05-29 13:06 | PCOTNOTE ---
Per RN, no therapy this afternoon. Patient on bedrest due to a change in a medication being given. Will check back tomorrow.
[2024-05-29] MEDS: CEFEPIME 2 GM/NS 50 ML 2 GM/50 ML BAG IVPB ×2 (15:22→23:11)
[2024-05-29 18:19] LABS: Glucose Point of Care 173 mg/dl (65-105)
--- NOTE | 2024-05-29 18:58 | PM.IMPN ---
Progress Note: A&P Assessment and Plan (1) Symptomatic bradycardia: Code(s): R00.1 - Bradycardia, unspecified Status: Acute Assessment and Plan: Symptomatic sinus bradycardia with hypotension which improved with dopamine infusion Treated with atropine and Ca Gluconate in ED Electrolytes replaced Cardiology consulted and appreciate their input. Amiodarone restarted 05/28 and tolerating this well Dopamine changed to Levophed 5mcg to keep MAP>65 and/or SBP>90. Increased to 9mcg but back down to 4mcg currently. Wean as tolerated (2) Sepsis: Code(s): A41.9 - Sepsis, unspecified organism Status: Acute Assessment and Plan: Patient met criteria for sepsis on arrival in the ER. Patient was not given the fluid bolus due to his overall volume overload HoTN could be partly explained by the bradycardia and medications that he was on He was started on Vanco then cefepime once appropriate cultures obtained. UA was negative and CXR was clear Concern for right foot cellulitis. BCx growing Staph epidermidis in aerobic bottle only (felt to be a contaminant). 2nd set NGTD. Wound Care and Podiatry evaluated the patient PCT level was low at 0.1 CT of the foot showing no evidence of osteomyelitis. Continue abx (3) Nausea & vomiting: Code(s): R11.2 - Nausea with vomiting, unspecified Status: Acute Assessment and Plan: Patient had not had bowel movement for many days. CT abdomen pelvis 05/26 without contrast did not show any evidence of obstruction Patient was tolerating diet until this morning when he had recurrent n/v. NG tube was inserted and KUB showing NBGP. Repeat KUB now showing mildly distended SB loops consistent with SBO. No free air According to RN, patient had immediately drained 1 L of gastric fluid. Documented patient did have BM today. Repeat KUB. Start TF if evidence of SBO resolution (4) Hypotension: Code(s): I95.9 - Hypotension, unspecified Status: Acute Assessment and Plan: Patient with HoTN on admisison. He was started on low-dose dopamine to keep MAP at target level. He does have a history of low blood pressure at baseline. Beta-dylon and Entresto on hold. 25% albumin was added Midodrine added Cortisol level was only 6.06 so stress dose hydrocortisone started 05/28 Changed to Levophed. As above (5) Acute kidney injury superimposed on CKD: Code(s): N17.9 - Acute kidney failure, unspecified; N18.9 - Chronic kidney disease, unspecified Status: Acute Assessment and Plan: Patient has history of CKD. Baseline creatinine is unknown. Nephrology was consulted and appreciate their input. Probably related to the bradycardia, HoTN and sepsis Renal US normal right kidney but left kidney not identified. TCK normal. Patient was given cautious amount of IV fluids considering patient is overall volume overloaded Cr 2.7 on admission but has improved to 1.3 today. Monitor UOP, renal fxn and electrolytes (6) Hyperkalemia: Code(s): E87.5 - Hyperkalemia Status: Acute Assessment and Plan: Presented with potassium of 5.1 which has improved with medical treatment Related to RANDALL Monitor potassium level (7) Peripheral arterial disease: Code(s): I73.9 - Peripheral vascular disease, unspecified Status: Acute Assessment and Plan: Patient has history of peripheral arterial disease status post DVA in the right leg at [facility] Plavix held due to being NPO. (8) Afib: Code(s): I48.91 - Unspecified atrial fibrillation Status: Deleted Assessment and Plan: Currently in sinus rhythm but bradycardic so amiodarone and metoprolol were held Holding anticoagulation due to suspected GI bleed Cardiology re-introducing Amio Follow closely (9) Edema: Code(s): R60.9 - Edema, unspecified Status: Acute Assessment and Plan: Patient is overall volume overloaded
[2024-05-30] VITALS (23 sets, daily range): BP systolic 83–140; BP diastolic 50–98; PULSE 76–94; RESP 10–18; TEMP 35.7–36.4; O2SAT 93–100
[2024-05-30 00:33] LABS: Glucose Point of Care 140 mg/dl (65-105)
[2024-05-30] MEDS: LEVOTHYROXINE SODIUM INJ 100 MCG/5 ML VIAL 75 MCG IV PUSH (06:29)
[2024-05-30] MEDS: CENTRAL LINE FLUSH 10 ML IV PUSH ×3 (06:29→21:11)
[2024-05-30] MEDS: HYDROCORTISONE SODIUM SUCCINATE 100 MG/2 ML VIAL IV PUSH ×3 (06:29→21:10)
[2024-05-30 06:43] LABS: Basophils Percent Auto 0.2 % (0.2-1.2); Eosinophils Percent Auto 0.2 % (0-4.4); Hematocrit 29.3 % (42.0-52.0); Hemoglobin 9.7 g/dL (14.0-18.0); Immature Granulocyte Absolute 0.08 K/mm3 (0.00-0.031); Immature Granulocyte Percent A 0.7 % (0-0.5); Lymphocytes Absolute Auto 0.85 K/mm3 (0.9-3.2); Lymphocytes Percent Auto 7.7 % (18.3-44.2); Mean Corpuscular HGB Conc 33.1 g/dl (32-36); Mean Corpuscular Hemoglobin 32.2 pg (26-34); Mean Corpuscular Volume 97.3 fl (80-100); Monocytes Absolute Auto 0.7 K/mm3 (0.1-0.6); Monocytes Percent Auto 6.3 % (2.6-8.5); Neutrophils Absolute Auto 9.4 K/mm3 (1.3-6.7); Neutrophils Percent Auto 84.9 % (45.5-73.1); Platelet Count Result 191 k/mm3 (150-375); Red Blood Count 3.01 M/mm3 (4.6-6.20); Red Cell Distribution Width 13.6 % (11.5-14.5); White Blood Count 11.1 K/mm3 (4.5-10.0)
[2024-05-30 06:44] LABS: Glucose Point of Care 115 mg/dl (65-105)
[2024-05-30 06:54] LABS: Alanine Aminotransferase 107 U/L (6-50); Alkaline Phosphatase 87 U/L (38-126); Anion Gap 7 mmol/L (4-12); Aspartate Amino Transferase 76 U/L (17-59); Bilirubin,Total 0.9 mg/dL (0.2-1.3); Blood Urea Nitrogen 27 mg/dL (9-20); Calcium 8.8 mg/dL (8.4-10.2); Carbon Dioxide 24 mmol/L (22-30); Chloride 103 mmol/L (98-107); Estimated CRCL calculation 65 ml/min; Estimated Glomerular Filt Rate > 60; Glucose 117 mg/dL (65-110); Magnesium 1.8 mg/dL (1.6-2.3); Phosphorus 2.3 mg/dL (2.5-4.5); Potassium 3.5 mmol/L (3.4-5.0); Sodium 134 mmol/L (137-145)
--- NOTE | 2024-05-30 07:56 | WPDINTPN ---
Progress Note: A&P Assessment and Plan (1) Sepsis: Code(s): A41.9 - Sepsis, unspecified organism Status: Acute Assessment and Plan: Patient met criteria for sepsis on arrival in the ER. Patient was not given the fluid bolus due to his overall volume overload His hypotension could be partly explained by the bradycardia and medications that he was on He was started on antibiotics His UA was negative and chest x-ray was clear -05/24: Blood cultures growing Staph epidermidis 1/2 bottles -05/29: Repeat blood cultures pending The right foot is definitely warmer and rhythm it was as compared to left but this could be due to angioplasty with increased perfusion of the right foot and the patient's and daughter does not feel and it looks any different Wound Care and Podiatry evaluated the patient -procalcitonin level was low at 0.1 -will increase cefepime to 2 g q.12 hours (05/29) -patient was in shock likely septic versus cardiogenic. Patient was on dopamine which was switched to Levophed on 05/29. -currently off Levophed since 11:00 p.m. on 05/29 -according the patient's daughter his systolic blood pressures are normally in the 90s to low 100s 05/26: CT of the foot No definite evidence of osteomyelitis. Advanced degenerative change at the first metatarsophalangeal joint region. Diffuse subcutaneous soft tissue edema. Correlate for cellulitis versus bland edema. (2) Symptomatic bradycardia: Code(s): R00.1 - Bradycardia, unspecified Status: Acute Assessment and Plan: RESOLVED Symptomatic sinus bradycardia with hypotension which has improved on dopamine infusion electrolytes replaced (3) Acute kidney injury superimposed on CKD: Code(s): N17.9 - Acute kidney failure, unspecified; N18.9 - Chronic kidney disease, unspecified Status: Acute Assessment and Plan: Patient has history of chronic kidney disease although baseline creatinine is unknown the information in the chart. Patient was seen by Nephrology as an outpatient. Nephrology has been consulted. This could be worsened secondary to hypotension from bradycardia and intravascular volume depletion Patient was given cautious amount of IV fluids considering patient is overall volume overloaded Normal CK, urine electrolytes, Renal ultrasound: 1. Normal right kidney.2. Left kidney not identified. Monitor intake and output Creatinine has normalized (4) Hyperkalemia: Code(s): E87.5 - Hyperkalemia Status: Acute Assessment and Plan: RESOLVED Presented with potassium of 5.1 which has improved with medical treatment Monitor potassium level (5) Peripheral arterial disease: Code(s): I73.9 - Peripheral vascular disease, unspecified Status: Acute Assessment and Plan: Patient has history of peripheral arterial disease status post DVA (Deep venous arterialization) in the right leg at [facility] (6) Afib: Code(s): I48.91 - Unspecified atrial fibrillation Status: Deleted Assessment and Plan: Currently in sinus rhythm rate controlled -cardiology did start patient amiodarone on 05/28, due to emesis and possible small-bowel obstruction, NG tube is in place to low intermittent suction -cardiology has restarted amiodarone at low-dose, currently on hold due to NPO an NG tube due to probable SBO once pt start PO will restart Amiodarone - holding anticoagulation due to suspected GI bleed (7) Edema: Code(s): R60.9 - Edema, unspecified Status: Acute Assessment and Plan: Patient is overall volume overloaded and will need diuretics eventually but at this time due to low blood pressure will hold any diuretics due to hypotension/shock (8) GI bleed: Code(s): K92.2 - Gastrointestinal hemorrhage, unspecified Status: Acute Assessment and Plan: 03/26: Patient had episode of vomiting this morning and nurse reports that it was coffee-ground.Anticoagulation w
[2024-05-30] MEDS: MAGNESIUM SULF 2 GM/WATER 50ML 2 GM/50 ML BAG IVPB (07:57)
[2024-05-30] MEDS: CEFEPIME 2 GM/NS 50 ML 2 GM/50 ML BAG IVPB ×2 (07:57→21:11)
[2024-05-30] MEDS: SENNA/DOCUSATE SODIUM TABLET 1 TAB PO ×2 (07:58→21:09)
[2024-05-30] MEDS: ENOXAPARIN 40 MG/0.4 ML SYRINGE SUB-Q (07:58)
[2024-05-30] MEDS: polyethylene glycoL 3350 17 GM POWD.PACK PO (07:58)
[2024-05-30] MEDS: PANTOPRAZOLE SODIUM IV 40 MG VIAL IV PUSH ×2 (07:58→21:10)
[2024-05-30] MEDS: METOCLOPRAMIDE HCL INJ 10 MG/2 ML VIAL IV PUSH ×3 (07:58→17:03)
[2024-05-30] MEDS: POTASSIUM PHOS,M-BASIC-D-BASIC 20 MMOL in SODIUM CHLORIDE 0.9% IV 250 ML 64.17 MMOL IVPB (09:00)
--- NOTE | 2024-05-30 10:08 | PM.PNCARD ---
Progress Note: A&P Assessment and Plan (1) Paroxysmal atrial fibrillation: Code(s): I48.0 - Paroxysmal atrial fibrillation Status: Acute (2) Symptomatic bradycardia: Code(s): R00.1 - Bradycardia, unspecified Status: Acute Plan 79-year-old man with: History of tachycardia mediated cardiomyopathy with AFib/RVR last summer. After denominational of sinus rhythm he improved significantly and his left ventricle essentially normalized. He is in the hospital now with some shortness of breath, persistent lower extremity edema which I believe is a result of lower extremity venous arterialization. Echocardiogram during this hospitalization continues to look favorable and he is maintaining sinus rhythm. Amiodarone orally will be resumed again today since his abdomen is again soft. Need to avoid holding his amiodarone since atrial fibrillation was very poorly tolerated. His other vasoactive medications, beta-dylon Entresto etc. have been stopped because of the hypotension. Clinical impression is that there is likely a low grades sepsis problem that is promoting/causing his hypotension Lamberto Marin MD [facility] Subjective Date/time seen: Date of service: 05/30/24 10:08 Interval history: Reason for visit: Bradycardia HPI: We are consulted for bradycardia. This is an 79 year old male with the following history: 1. Heart failure with improved LVEF. Previously, LVEF was 30% with subsequent normalization of LVEF in November 2023. 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 2. Paroxysmal atrial fibrillation on Eliquis, s/p cardioversion 3. Severe peripheral vascular disease. Chronic wound of the right foot s/p skin graft application to the right foot on 05/09/2024. 4. Hyperlipidemia Adolfo is a patient of Dr. Marin's. He presented to [facility] 05/24 for weakness and multiple falls. Family reports that he has had about 6 falls this year. Last fall on . His post op right shoe got caught on the corner of the hallway, and thinks that is what caused his fall. He does not believe he has lost consciousness during any of these falls, but he cannot remember all the details clearly. Daughter reports that yesterday at home, his heart rate was in the 30s and SBP in the 70s. He was noted to be significantly bradycardic in the ED with heart rate in the 30s. EKG showed sinus bradycardia. He was also hypotensive. Given a small fluid bolus due to hypotension. Given 3 doses of Atropine 1mg with brief improvement in heart rate after each dose, but did not sustain a response. Workup also notable for WBC of 11.8, SCr of 2.7, elevated lactate of 2.7, normal TSH level. Echocardiogram in March 2024 shows LVEF 60%. BMP on 04/11/2024 shows SCr was 1.41 and eGFR 50, BUN 25 (obtained from Epic chart). History was obtained from the patient, his medical chart, family members at bedside (his daughter is a nurse here at [facility]). Outside medical records ([facility] Epic chart) were personally reviewed. This morning, he was on Dopamine 2.5 mcg/kg/min. When the Dopamine was stopped, his heart rates dipped down to the 40s, therefore, Dopamine was restarted. Amiodarone and Metoprolol have been placed on hold since admission, along with his Eliquis. He was noted to have coffee ground emesis this morning as well by the nursing staff. Date of service 05/26: History of atrial fibrillation and tachycardia mediated cardiomyopathy with diagnosis in the summer. Following institution of guideline directed medical therapy for low ejection fraction and cardioversion following loading with amiodarone his left ventricular ejection fraction normalized and he improved considerably. Patient also has extensive lower extremity peripheral vascular disease and has recently undergone percutaneous arterialization of the lower extremity veins. After this he has developed substantial lower extremity edema. Patient was admitted with problematic hypotens
--- NOTE | 2024-05-30 12:01 | PCNFU ---
Nutrition Follow-Up Complete: Suboptimal Energy Intake as related to SBO as evidenced by NPO/NGT. Goal: Meet estimated nutritional needs. Patient is not meeting goal. Will continue current goal. Pt current nutrition is NPO. Nutrition recommendation: Advance diet as tolerated as medically able per MD orders. Last recorded weight is 127.7 kg, down from 129.3 kg on admit. Bowel Motility: +BM reported 05/29 Labs Reviewed: Glu 117, BUN 27, Na 134, Hct 29.3,Hgb 9.7 Meds Noted: Senokot, Protonix, Miralax, Reglan. Skin: WNL Additional Notes: Patient currently NPO. NGT clamped. No nausea or vomiting. Discussions in rounds regarding advancing diet later this afternoon to clear liquids. Supplement of Ensure Clear will be on tray for additional 240 kcal and 8 gm protein. Will monitor in ICU rounds and reassess weight, labs, skin, diet orders, meds every 3 days.
[2024-05-30 12:18] LABS: Glucose Point of Care 126 mg/dl (65-105)
[2024-05-30] MEDS: AMIODARONE HCL 200 MG TABLET PO (12:40)
[2024-05-30] MEDS: MIDODRINE HCL 10 MG TABLET PO ×2 (12:40→17:01)
--- NOTE | 2024-05-30 16:57 | PM.IMPN ---
Progress Note: A&P Assessment and Plan (1) Symptomatic bradycardia: Code(s): R00.1 - Bradycardia, unspecified Status: Acute Assessment and Plan: Symptomatic sinus bradycardia with hypotension which improved with dopamine infusion. He was on metoprolol at home Treated with atropine and Ca Gluconate in ED Electrolytes replaced Cardiology consulted and appreciate their input. Echo showing EF 60-65% and Grade I diastolic dysfunction. Mild MR/TR noted. Amiodarone restarted 05/28 but then held. This was resumed today Dopamine changed to Levophed and now has been weaned off. Follow on tele (2) Sepsis: Code(s): A41.9 - Sepsis, unspecified organism Status: Acute Assessment and Plan: Patient met criteria for sepsis on arrival in the ER. Patient was not given the fluid bolus due to his overall volume overload HoTN could be partly explained by the bradycardia and medications that he was on He was started on Vanco and cefepime once appropriate cultures obtained. UA was negative. CXR was clear (05/24) and repeat showing minimal congestive changes Concern for right foot cellulitis. BCx growing Staph epidermidis in aerobic bottle only (felt to be a contaminant). 2nd set NGTD. BCx 05/29 NGTD MRSA nasal swab PCR negative. Wound Care and Podiatry evaluated the patient PCT level was low at 0.1 CT of the foot showing no evidence of osteomyelitis. CT A/P did show multifocal patchy areas of consolidation bilateral LL so consider PNA. otherwise no acute findings by CT Continue abx (3) Nausea & vomiting: Code(s): R11.2 - Nausea with vomiting, unspecified Status: Acute Assessment and Plan: Patient had not had bowel movement for many days. CT abdomen pelvis 05/26 without contrast did not show any evidence of obstruction Patient was tolerating diet until 05/29 when he had recurrent n/v. NG tube was inserted and KUB showing NBGP. Repeat KUB showing mildly distended SB loops consistent with SBO. No free air. According to RN, patient had immediately drained 1 L of gastric fluid. Reglan started. Documented BMs now. KUB showing normal bowel gas pattern (4) Hypotension: Code(s): I95.9 - Hypotension, unspecified Status: Acute Assessment and Plan: Patient with HoTN on admisison. He was started on low-dose dopamine to keep MAP at target level. He does have a history of low blood pressure at baseline but worse felt related to septic shock. Beta-dylon and Entresto on hold. 25% albumin was added Midodrine added. Cortisol level was only 6.06 so stress dose hydrocortisone started 05/28 Changed to Levophed but now weaned off (5) Acute kidney injury superimposed on CKD: Code(s): N17.9 - Acute kidney failure, unspecified; N18.9 - Chronic kidney disease, unspecified Status: Acute Assessment and Plan: Patient has history of CKD. Baseline creatinine is unknown. Nephrology was consulted and appreciate their input. Probably related to the bradycardia, HoTN and sepsis Renal US normal right kidney but left kidney not identified. TCK normal. CT Abdomen showing bilateral nonobstructing renal stones. No hydronephrosis. Patient was given cautious amount of IV fluids considering patient is overall volume overloaded Cr 2.7 on admission but has improved to 1.1 today. Monitor UOP, renal fxn and electrolytes (6) Hyperkalemia: Code(s): E87.5 - Hyperkalemia Status: Acute Assessment and Plan: Presented with potassium of 5.1 which has improved with medical treatment Related to RANDALL Monitor potassium level (7) Peripheral arterial disease: Code(s): I73.9 - Peripheral vascular disease, unspecified Status: Acute Assessment and Plan: Patient has history of peripheral arterial disease status post DVA in the right leg at [facility] Plavix held due to being NPO. (8) Afib: Code(s): I48.91 - Unspecified atrial fibrillation
[2024-05-31] VITALS (16 sets, daily range): BP systolic 89–147; BP diastolic 39–95; PULSE 84–97; RESP 10–16; TEMP 36.1–36.8; O2SAT 94–99
[2024-05-31] MEDS: METOCLOPRAMIDE HCL INJ 10 MG/2 ML VIAL IV PUSH ×2 (01:48→06:29)
[2024-05-31 02:00] LABS: Glucose Point of Care 126 mg/dl (65-105)
[2024-05-31 04:48] LABS: Basophils Percent Auto 0.1 % (0.2-1.2); Eosinophils Percent Auto 0.1 % (0-4.4); Hematocrit 27.1 % (42.0-52.0); Hemoglobin 9.1 g/dL (14.0-18.0); Immature Granulocyte Percent A 1.1 % (0-0.5); Lymphocytes Absolute Auto 0.88 K/mm3 (0.9-3.2); Lymphocytes Percent Auto 9.6 % (18.3-44.2); Mean Corpuscular HGB Conc 33.6 g/dl (32-36); Mean Corpuscular Hemoglobin 32.5 pg (26-34); Mean Corpuscular Volume 96.8 fl (80-100); Mean Platelet Volume 11.2 fl (7.4-10.4); Monocytes Absolute Auto 0.7 K/mm3 (0.1-0.6); Monocytes Percent Auto 7.4 % (2.6-8.5); Neutrophils Absolute Auto 7.5 K/mm3 (1.3-6.7); Neutrophils Percent Auto 81.7 % (45.5-73.1); Platelet Count Result 185 k/mm3 (150-375); Red Cell Distribution Width 13.6 % (11.5-14.5); White Blood Count 9.1 K/mm3 (4.5-10.0)
[2024-05-31 04:59] LABS: Alanine Aminotransferase 106 U/L (6-50); Albumin Level 2.7 g/dL (3.5-5.1); Alkaline Phosphatase 100 U/L (38-126); Anion Gap 8 mmol/L (4-12); Aspartate Amino Transferase 67 U/L (17-59); Bilirubin,Total 0.6 mg/dL (0.2-1.3); Blood Urea Nitrogen 32 mg/dL (9-20); Calcium 8.8 mg/dL (8.4-10.2); Carbon Dioxide 24 mmol/L (22-30); Chloride 103 mmol/L (98-107); Estimated CRCL calculation 60 ml/min; Estimated Glomerular Filt Rate 58; Glucose 121 mg/dL (65-110); Magnesium 2.1 mg/dL (1.6-2.3); Phosphorus 2.9 mg/dL (2.5-4.5); Potassium 3.5 mmol/L (3.4-5.0); Sodium 135 mmol/L (137-145)
[2024-05-31] MEDS: HYDROCORTISONE SODIUM SUCCINATE 100 MG/2 ML VIAL IV PUSH (06:29)
[2024-05-31] MEDS: LEVOTHYROXINE SODIUM INJ 100 MCG/5 ML VIAL 75 MCG IV PUSH (06:29)
[2024-05-31] MEDS: CENTRAL LINE FLUSH 10 ML IV PUSH ×2 (06:30→21:00)
[2024-05-31] MEDS: POTASSIUM CHLORIDE 20 MEQ PACKET (FOR LIQUID) 40 MEQ PO (08:36)
[2024-05-31] MEDS: polyethylene glycoL 3350 17 GM POWD.PACK PO (08:36)
[2024-05-31] MEDS: AMIODARONE HCL 200 MG TABLET PO (08:37)
[2024-05-31] MEDS: CLOPIDOGREL BISULFATE 75 MG TABLET PO (08:37)
[2024-05-31] MEDS: SENNA/DOCUSATE SODIUM TABLET 1 TAB PO ×2 (08:37→21:00)
[2024-05-31] MEDS: MIDODRINE HCL 10 MG TABLET PO ×3 (08:37→17:21)
[2024-05-31] MEDS: ENOXAPARIN 40 MG/0.4 ML SYRINGE SUB-Q (08:45)
[2024-05-31] MEDS: CEFEPIME 2 GM/NS 50 ML 2 GM/50 ML BAG IVPB ×2 (08:45→21:01)
[2024-05-31] MEDS: PANTOPRAZOLE SODIUM IV 40 MG VIAL IV PUSH ×2 (08:45→21:00)
--- NOTE | 2024-05-31 10:16 | PM.PNNEP ---
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 holding diuretics for now (but will likely need to resume) along with Entresto eventually follow trend of repeat labs and UOP (2) Stage 3a chronic kidney disease: Code(s): N18.31 - Chronic kidney disease, stage 3a Status: Chronic Assessment and Plan: creatinine had been running ~ 1.1 - 1.3 since late August 2023 in mid March 2024, creatinine declined with a creatinine of 2.13mg/dl in association with lightheadness and falls this rise in creatinine correlates with use of high dose diuretics (lasix 80mg qday) to treat LE edema diuretics discontinued but LE edema returned was then resumed on lasix at 40mg qday most recent creatinine before this admission = 1.41mg/dl on 04/11/24 presumably related to vascular disease, age-related change, and necessity of diuretic therapy outpatient evaluation only significant for + ANKUSH -- other testing (serologies, SPEP, UPEP...etc.) have been negative to date given improvement in renal function with holding diuretics and optimized hemodynamics also argues in favor of vascular disease playing a significant role previous renal dysfunction recently established care with Dr. Brandon regarding renal insufficiency (3) Symptomatic bradycardia: Code(s): R00.1 - Bradycardia, unspecified Status: Acute Assessment and Plan: resolved as noted on admission symptomatic with noted sinus bradycardia associated with hypotension amiodarone and beta dylon previously held Cardiology following (4) Sepsis: Qualifiers: Sepsis type: sepsis due to unspecified organism Sepsis acute organ dysfunction status: unspecified Qualified Code(s): A41.9 - Sepsis, unspecified organism Code(s): A41.9 - Sepsis, unspecified organism Status: Acute Assessment and Plan: clinically better criteria met on presentation follow culture data - blood culure results noted completed coarse of antibiotics wound care following follow trend of hemodynamics (5) Hypotension: Code(s): I95.9 - Hypotension, unspecified Status: Resolved Assessment and Plan: baseline systolic BP runs around 90 - 100s systolic per family likely worsened by previous sepsis on midodrine therapy stress dose steroids due to low cortisol but this is being weaned (6) Edema: Code(s): R60.9 - Edema, unspecified Status: Acute Assessment and Plan: significant issue in the last few months was on oral diuretic therapy prior to admission related to PAD/PVD and possible untreated LUIS; CHF seems less likely given recent Echo with good EF... suspect may need diuretics down the line follow clinical exam (7) Afib: Qualifiers: Atrial fibrillation type: paroxysmal Qualified Code(s): I48.0 - Paroxysmal atrial fibrillation Code(s): I48.91 - Unspecified atrial fibrillation Status: Chronic Assessment and Plan: back on amiodarone as well as anticoagulation Cardiology following (8) Nausea & vomiting: Code(s): R11.2 - Nausea with vomiting, unspecified Status: Acute Assessment and Plan: better at this time imaging to date noted advance diet as tolerated IV antiemetics Will continue to follow intermittently. Subjective
--- NOTE | 2024-05-31 10:16 | P.PNNP_ITS ---
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 * holding diuretics for now (but will likely need to resume) along with Entresto eventually * follow trend of repeat labs and UOP (2) Stage 3a chronic kidney disease: Code(s): N18.31 - Chronic kidney disease, stage 3a Status: Chronic Assessment and Plan: * creatinine had been running ~ 1.1 - 1.3 since late August 2023 * in mid March 2024, creatinine declined with a creatinine of 2.13mg/dl in association with lightheadness and falls * this rise in creatinine correlates with use of high dose diuretics (lasix 80mg qday) to treat LE edema * diuretics discontinued but LE edema returned * was then resumed on lasix at 40mg qday * most recent creatinine before this admission = 1.41mg/dl on 04/11/24 * presumably related to vascular disease, age-related change, and necessity of diuretic therapy * outpatient evaluation only significant for + ANKUSH -- other testing (serologies, SPEP, UPEP...etc.) have been negative to date * given improvement in renal function with holding diuretics and optimized hemodynamics also argues in favor of vascular disease playing a significant role previous renal dysfunction * recently established care with Dr. Brandon regarding renal insufficiency (3) Symptomatic bradycardia: Code(s): R00.1 - Bradycardia, unspecified Status: Acute Assessment and Plan: * resolved * as noted on admission * symptomatic with noted sinus bradycardia associated with hypotension * amiodarone and beta dylon previously held * Cardiology following (4) Sepsis: Qualifiers: Sepsis type: sepsis due to unspecified organism Sepsis acute organ dysfunction status: unspecified Qualified Code(s): A41.9 - Sepsis, unspecified organism Code(s): A41.9 - Sepsis, unspecified organism Status: Acute Assessment and Plan: * clinically better * criteria met on presentation * follow culture data - blood culure results noted * completed coarse of antibiotics * wound care following * follow trend of hemodynamics (5) Hypotension: Code(s): I95.9 - Hypotension, unspecified Status: Resolved Assessment and Plan: * baseline systolic BP runs around 90 - 100s systolic per family * likely worsened by previous sepsis * on midodrine therapy * stress dose steroids due to low cortisol but this is being weaned (6) Edema: Code(s): R60.9 - Edema, unspecified Status: Acute Assessment and Plan: * significant issue in the last few months * was on oral diuretic therapy prior to admission * related to PAD/PVD and possible untreated LUIS; CHF seems less likely given recent Echo with good EF... * suspect may need diuretics down the line * follow clinical exam (7) Afib: Qualifiers: Atrial fibrillation type: paroxysmal Qualified Code(s): I48.0
--- NOTE | 2024-05-31 10:34 | PCFNICU ---
ICU Rounding Note: Pt current nutrition is Full liquid diet. Pt ate some oatmeal today Nutrition recommendation: Oral nutrition supplement: Ensure Compact BID for additional 220 kcal and 9 g protein each Last recorded weight is 129 kg. Bowel Motility: +1 BM 05/31/24 Labs Reviewed: Hgb 9.1, Hct 27.1, Alb 2.7, Na 135, BUN 32, Glu 121 Meds Noted: Lasix, protonix, miralax, zofran, cefepime Skin: No pressure injuries Additional Notes: Diet was advanced to full liquid and patient was able to eat some breakfast. Advancing as tolerated. Following daily in ICU rounds. Will monitor weight, labs, skin, diet orders, meds every 3 days. .
--- NOTE | 2024-05-31 10:47 | WPDINTPN ---
Progress Note: A&P Assessment and Plan (1) Sepsis: Qualifiers: Sepsis type: sepsis due to unspecified organism Sepsis acute organ dysfunction status: unspecified Qualified Code(s): A41.9 - Sepsis, unspecified organism Code(s): A41.9 - Sepsis, unspecified organism Status: Acute Assessment and Plan: Patient met criteria for sepsis on arrival in the ER. Patient was not given the fluid bolus due to his overall volume overload His hypotension could be partly explained by the bradycardia and medications that he was on He was started on antibiotics His UA was negative and chest x-ray was clear -05/24: Blood cultures growing Staph epidermidis 1/2 bottles -05/29: Preliminary blood culture reports are negative x2 The right foot is definitely warmer and rhythm it was as compared to left but this could be due to angioplasty with increased perfusion of the right foot and the patient's and daughter does not feel and it looks any different Wound Care and Podiatry evaluated the patient -procalcitonin level was low at 0.1 -will increase cefepime to 2 g q.12 hours (05/29) patient was started on cefepime on 05/25, has received total of 7 days. Will discontinue cefepime white count is normal, patient is afebrile, hemodynamically stable -patient was in shock likely septic versus cardiogenic. Patient was on dopamine which was switched to Levophed on 05/29. -currently off Levophed since 11:00 p.m. on 05/29 -according the patient's daughter his systolic blood pressures are normally in the 90s to low 100s 05/26: CT of the foot No definite evidence of osteomyelitis. Advanced degenerative change at the first metatarsophalangeal joint region. Diffuse subcutaneous soft tissue edema. Correlate for cellulitis versus bland edema. (2) Symptomatic bradycardia: Code(s): R00.1 - Bradycardia, unspecified Status: Acute Assessment and Plan: RESOLVED Symptomatic sinus bradycardia with hypotension which has improved on dopamine infusion electrolytes replaced (3) Acute kidney injury superimposed on CKD: Code(s): N17.9 - Acute kidney failure, unspecified; N18.9 - Chronic kidney disease, unspecified Status: Acute Assessment and Plan: Patient has history of chronic kidney disease although baseline creatinine is unknown the information in the chart. Patient was seen by Nephrology as an outpatient. Nephrology has been consulted. This could be worsened secondary to hypotension from bradycardia and intravascular volume depletion Patient was given cautious amount of IV fluids considering patient is overall volume overloaded Normal CK, urine electrolytes, Renal ultrasound: 1. Normal right kidney.2. Left kidney not identified. Monitor intake and output Creatinine has normalized (4) Hyperkalemia: Code(s): E87.5 - Hyperkalemia Status: Acute Assessment and Plan: RESOLVED Presented with potassium of 5.1 which has improved with medical treatment Monitor potassium level (5) Peripheral arterial disease: Code(s): I73.9 - Peripheral vascular disease, unspecified Status: Acute Assessment and Plan: Patient has history of peripheral arterial disease status post DVA (Deep venous arterialization) in the right leg at [facility] -continue Plavix (6) Afib: Qualifiers: Atrial fibrillation type: paroxysmal Qualified Code(s): I48.0 - Paroxysmal atrial fibrillation Code(s): I48.91 - Unspecified atrial fibrillation Status: Deleted Assessment and Plan: Currently in sinus rhythm rate controlled -cardiology did start patient amiodarone on 05/28, due to emesis and possible small-bowel obstruction, NG tube is in place to low intermittent suction -G cardiology evaluation recommendations, continue amiodarone - holding anticoagulation due to suspected GI bleed, if hemoglobin remains stable will restart Eliquis (7) Edema: Code(s): R60.9 - Ed
[2024-05-31 11:32] LABS: Glucose Point of Care 184 mg/dl (65-105)
--- NOTE | 2024-05-31 13:03 | PM.PNCARD ---
Progress Note: A&P Assessment and Plan (1) Paroxysmal atrial fibrillation: Code(s): I48.0 - Paroxysmal atrial fibrillation Status: Acute Plan AFib with RVR rate controlled History of GI bleeding Hypotension improving Plan Continue amiodarone Continue oral anticoagulation Consider increasing midodrine dose to 7.5 mg t.i.d. Subjective Date/time seen: 05/31/24 13:03 Interval history: no acute events tolerating oral intake Tele: Paroxysmal a fib HR 90s Review of Systems Review of Systems: All systems reviewed & are unremarkable except as noted in HPI and below Exam Const: General: comfortable and no acute distress Other: Obese white male lying comfortably in bed HENMT: Mouth: Yes moist mucous membranes and Yes dry mucous membranes Other: NG tube right nare Eyes: General: appearance normal, both eyes and all related structures Sclera: sclerae normal Neck: Neck: supple Other: No discernible venous distention Resp: Effort & Inspection: normal respiratory effort Auscultation: clear to auscultation bilaterally Cardio: Rate: regular rate Rhythm: regular rhythm Heart sounds: no murmurs Other: Significant bilateral lower extremity edema GI: Auscultation: normal bowel sounds Urinary Catheter: Urinary Catheter: patent and draining Skin: General skin exam: normal color Neuro: Speech: normal speech Other: Alert and oriented Extrem: Other: Cool to the touch and significant bilateral edema Psych: Mental Status: mental status grossly normal Affect: normal affect Objective Data Vital Signs Vital Signs: Vital Signs - 24 hr 05/30/24 14:00 05/30/24 14:00 05/30/24 16:00 Temperature 36.4 C Pulse Rate 94 93 86 Respiratory Rate 18 18 Blood Pressure 92/78 L 84/60 L Pulse Oximetry 97 97 Oxygen Delivery Oxygen Flow Rate 05/30/24 16:00 05/30/24 16:00 05/30/24 18:00 Temperature Pulse Rate 91 86 Respiratory Rate Blood Pressure Pulse Oximetry Oxygen Delivery Room Air Oxygen Flow Rate 05/30/24 18:00 05/30/24 20:00 05/30/24 20:00 Temperature 36.3 C L Pulse Rate 86 88 Respiratory Rate 18 13 Blood Pressure 120/76 125/84 Pulse Oximetry 97 100 Oxygen Delivery Room Air Oxygen Flow Rate 05/30/24 20:00 05/30/24 22:00 05/30/24 22:56 Temperature Pulse Rate 88 86 84 Respiratory Rate 14 12 Blood Pressure 83/50 L 102/61 Pulse Oximetry 95 93 Oxygen Delivery Oxygen Flow Rate 05/30/24 23:00 05/30/24 22:00 05/31/24 00:00 Temperature Pulse Rate 85 86 Respiratory Rate 12 Blood Pressure 119/61 Pulse Oximetry 95 Oxygen Delivery Room Air Oxygen Flow Rate 05/31/24 00:00 05/31/24 02:00 05/31/24 00:00 Temperature Pulse Rate 85 85 85 Respiratory Rate 11 L 13 Blood Pressure 114/39 L 140/95 H Pulse Oximetry 94 97 Oxygen Delivery Oxygen Flow Rate 05/31/24 02:00 05/31/24 04:00 05/31/24 04:00 Temperature 36.1 C L Pulse Rate 85 84 Respiratory Rate 10 L Blood Pressure 127/60 Pulse Oximetry 96 96 Oxygen Delivery Nasal Cannula Oxygen Flow Rate 2 05/31/24 04:00 05/31/24 06:00 05/31/24 06:00 Temperature Pulse Rate 85 84 84 Respiratory Rate 10 L Blood Pressure 147/59 H Pulse Oximetry 96 Oxygen Delivery Oxygen Flow Rate 05/31/24 08:37 05/31/24 08:48 05/31/24 08:00 Temperature Pulse Rate 87 96 Respiratory Rate Blood Pressure Pulse Oximetry 96 Oxygen Delivery Nasal Cannula Oxygen Flow Rate 2 05/31/24 08:00 05/31/24 08:00 05/31/24 10:00 Temperature 36.3 C L Pulse Rate 89 89 Respiratory Rate 16 Blood Pressure 133/57 L Pulse Oximetry 95 Oxygen Delivery Room Air Oxygen Flow Rate 05/31/24 10:00 Temperature Pulse Rate 89 Respiratory Rate 13 Blood Pressure 113/65 Pulse Oximetry 97 Oxygen Delivery Oxygen Flow Rate Intake/Output Intake/Output: Intake & Output
[2024-05-31] MEDS: ALBUMIN HUMAN 25% 25 GM/100 ML 100 ML IVPB (14:52)
--- NOTE | 2024-05-31 16:14 | PM.IMPN ---
Progress Note: A&P Assessment and Plan (1) Symptomatic bradycardia: Code(s): R00.1 - Bradycardia, unspecified Status: Acute Assessment and Plan: Patient presents with weakness and found to have symptomatic sinus bradycardia with hypotension which improved with dopamine infusion. He was on metoprolol at home. Treated with atropine and Calcium Gluconate in ED. Electrolytes were replaced. Cardiology consulted and appreciate their input. Echo showing EF 60-65% and Grade I diastolic dysfunction. Mild MR/TR noted. He had clinical improvement. Amiodarone restarted. Dopamine changed to Levophed and now has been weaned off. Heart rate stable but BP soft. Follow on tele (2) Sepsis: Qualifiers: Sepsis acute organ dysfunction status: unspecified Sepsis type: sepsis due to unspecified organism Qualified Code(s): A41.9 - Sepsis, unspecified organism Code(s): A41.9 - Sepsis, unspecified organism Status: Acute Assessment and Plan: Patient met criteria for sepsis on arrival in the ER. Patient was not given the fluid bolus due to his overall volume overload. HoTN could be partly explained by the bradycardia and medications that he was on. He was started on Vanco and cefepime (05/25) once appropriate cultures obtained. UA was negative. CXR was clear (05/24) and repeat showing minimal congestive changes. Concern for right foot cellulitis. BCx growing Staph epidermidis in aerobic bottle only (felt to be a contaminant). 2nd set negative. BCx 05/29 NGTD MRSA nasal swab PCR negative. Wound Care and Podiatry evaluated the patient PCT level was low at 0.1 CT of the foot showing no evidence of osteomyelitis. CT A/P did show multifocal patchy areas of consolidation bilateral LL so consider PNA. otherwise no acute findings by CT Continue abx to complete [address] evaluate for possible aspiration (3) Nausea & vomiting: Code(s): R11.2 - Nausea with vomiting, unspecified Status: Acute Assessment and Plan: Patient had not had bowel movement for many days. CT abdomen pelvis 05/26 without contrast did not show any evidence of obstruction Patient was tolerating diet until 05/29 when he had recurrent n/v. NG tube was inserted and KUB showing NBGP. Repeat KUB showing mildly distended SB loops consistent with SBO. No free air. According to RN, patient had immediately drained 1 L of gastric fluid. Short course of Reglan ordered. Documented BMs now. KUB showing normal bowel gas pattern. Diet started and tolerating. NGT to be removved today (4) Hypotension: Code(s): I95.9 - Hypotension, unspecified Status: Acute Assessment and Plan: Patient with HoTN on admisison. He was started on low-dose dopamine to keep MAP at target level. He does have a history of low blood pressure at baseline but worse felt related to septic shock. Beta-dylon and Entresto on hold. 25% albumin was given. Midodrine added. Cortisol level was only 6.06 so stress dose hydrocortisone started 05/28 Changed to Levophed but now weaned off BP soft but stable. Follow (5) Acute kidney injury superimposed on CKD: Code(s): N17.9 - Acute kidney failure, unspecified; N18.9 - Chronic kidney disease, unspecified Status: Acute Assessment and Plan: Patient has history of CKD. Baseline creatinine is unknown. Nephrology was consulted and appreciate their input. Probably related to the bradycardia, HoTN and sepsis Renal US normal right kidney but left kidney not identified. TCK normal. CT Abdomen showing bilateral nonobstructing renal stones. No hydronephrosis. Patient was given cautious amount of IV fluids considering patient is overall volume overloaded Cr 2.7 on admission but has improved to 1.2 today. Monitor UOP, renal fxn and electrolytes (6) Hyperkalemia: Code(s): E87.5 - Hyperkalemia Status: Acute Assessment and Plan: Presented with potassium of 5.1 which has im
[2024-05-31] MEDS: HYDROCORTISONE SODIUM SUCCINATE 100 MG/2 ML VIAL 50 MG IV PUSH (17:21)
[2024-05-31 17:27] LABS: Glucose Point of Care 93 mg/dl (65-105)
[2024-05-31] MEDS: APIXABAN 5 MG TABLET PO (21:00)
[2024-05-31 23:21] LABS: Glucose Point of Care 120 mg/dl (65-105)
[2024-06-01] VITALS (16 sets, daily range): BP systolic 108–127; BP diastolic 61–84; PULSE 78–96; RESP 12–20; TEMP 36.4–36.8; O2SAT 94–100
[2024-06-01] MEDS: LEVOTHYROXINE SODIUM 150 MCG TABLET PO (05:57)
[2024-06-01] MEDS: HYDROCORTISONE SODIUM SUCCINATE 100 MG/2 ML VIAL 50 MG IV PUSH ×2 (05:57→17:11)
[2024-06-01] MEDS: CENTRAL LINE FLUSH 10 ML IV PUSH ×3 (05:57→20:34)
[2024-06-01 06:18] LABS: Basophils Percent Auto 0.2 % (0.2-1.2); Eosinophils Absolute Auto 0.1 K/mm3 (0-0.3); Eosinophils Percent Auto 0.5 % (0-4.4); Hematocrit 28.3 % (42.0-52.0); Hemoglobin 9.1 g/dL (14.0-18.0); Immature Granulocyte Percent A 3.8 % (0-0.5); Lymphocytes Absolute Auto 1.44 K/mm3 (0.9-3.2); Lymphocytes Percent Auto 13.7 % (18.3-44.2); Mean Corpuscular HGB Conc 32.2 g/dl (32-36); Mean Corpuscular Hemoglobin 31.9 pg (26-34); Mean Corpuscular Volume 99.3 fl (80-100); Mean Platelet Volume 11.1 fl (7.4-10.4); Monocytes Absolute Auto 0.8 K/mm3 (0.1-0.6); Monocytes Percent Auto 7.5 % (2.6-8.5); Neutrophils Absolute Auto 7.8 K/mm3 (1.3-6.7); Neutrophils Percent Auto 74.3 % (45.5-73.1); Platelet Count Result 191 k/mm3 (150-375); Red Blood Count 2.85 M/mm3 (4.6-6.20); Red Cell Distribution Width 13.8 % (11.5-14.5); White Blood Count 10.5 K/mm3 (4.5-10.0)
[2024-06-01 07:07] LABS: Alanine Aminotransferase 117 U/L (6-50); Alkaline Phosphatase 97 U/L (38-126); Anion Gap 8 mmol/L (4-12); Aspartate Amino Transferase 81 U/L (17-59); Bilirubin,Total 0.5 mg/dL (0.2-1.3); Blood Urea Nitrogen 42 mg/dL (9-20); Calcium 8.6 mg/dL (8.4-10.2); Carbon Dioxide 23 mmol/L (22-30); Chloride 104 mmol/L (98-107); Estimated CRCL calculation 55 ml/min; Estimated Glomerular Filt Rate 53; Glucose 103 mg/dL (65-110); Magnesium 2.2 mg/dL (1.6-2.3); Potassium 4.1 mmol/L (3.4-5.0); Sodium 135 mmol/L (137-145)
[2024-06-01] MEDS: AMIODARONE HCL 200 MG TABLET PO (09:11)
[2024-06-01] MEDS: SENNA/DOCUSATE SODIUM TABLET 1 TAB PO ×2 (09:11→20:34)
[2024-06-01] MEDS: PANTOPRAZOLE SODIUM IV 40 MG VIAL IV PUSH ×2 (09:11→20:34)
[2024-06-01] MEDS: CHOLECALCIFEROL 1,000 UNITS TABLET 2000 UNITS PO (09:11)
[2024-06-01] MEDS: MIDODRINE HCL 10 MG TABLET PO ×3 (09:11→17:11)
[2024-06-01] MEDS: polyethylene glycoL 3350 17 GM POWD.PACK PO (09:11)
[2024-06-01] MEDS: APIXABAN 5 MG TABLET PO ×2 (09:11→20:34)
[2024-06-01] MEDS: CLOPIDOGREL BISULFATE 75 MG TABLET PO (09:11)
[2024-06-01] MEDS: POTASSIUM/PHOSPHORUS/SODIUM 1.5 GM PACKET 1 PACKET PO (09:11)
[2024-06-01] MEDS: ATORVASTATIN 40 MG TABLET PO (09:11)
--- NOTE | 2024-06-01 10:31 | PM.IMPN ---
Progress Note: A&P Assessment and Plan (1) Symptomatic bradycardia: Code(s): R00.1 - Bradycardia, unspecified Status: Acute Assessment and Plan: Patient presents with weakness and found to have symptomatic sinus bradycardia with hypotension which improved with dopamine infusion. He was on metoprolol at home which was held. Treated with atropine and Calcium Gluconate in ED. Electrolytes were replaced. Cardiology consulted and appreciate their input. Echo showing EF 60-65% and Grade I diastolic dysfunction. Mild MR/TR noted. He had clinical improvement. Amiodarone restarted. Dopamine changed to Levophed and now has been weaned off. Heart rate stable but BP soft. Follow on tele (2) Sepsis: Qualifiers: Sepsis type: sepsis due to unspecified organism Sepsis acute organ dysfunction status: unspecified Qualified Code(s): A41.9 - Sepsis, unspecified organism Code(s): A41.9 - Sepsis, unspecified organism Status: Acute Assessment and Plan: Patient met criteria for sepsis on arrival in the ER. Patient was not given the fluid bolus due to his overall volume overload. HoTN could be partly explained by the bradycardia and medications that he was on. He was started on Vanco and cefepime (05/25) once appropriate cultures obtained. UA was negative. CXR was clear (05/24) and repeat showing minimal congestive changes. Concern for right foot cellulitis. BCx growing Staph epidermidis in aerobic bottle only (felt to be a contaminant). 2nd set negative. BCx 05/29 NGTD MRSA nasal swab PCR negative. Wound Care and Podiatry evaluated the patient PCT level was low at 0.1 CT of the foot showing no evidence of osteomyelitis. CT A/P did show multifocal patchy areas of consolidation bilateral LL so consider PNA. otherwise no acute findings by CT Patient completed a course of abx. Have ST evaluate for possible aspiration Monitor off abx (3) Nausea & vomiting: Code(s): R11.2 - Nausea with vomiting, unspecified Status: Acute Assessment and Plan: Patient had not had bowel movement for many days. CT abdomen pelvis 05/26 without contrast did not show any evidence of obstruction. Patient was tolerating diet until 05/29 when he had recurrent n/v. NG tube was inserted and KUB showing NBGP. Repeat KUB showing mildly distended SB loops consistent with SBO. No free air. Patient had immediately drained 1 L of gastric fluid once NGT secured. He had a short course of Reglan. Documented BMs now. KUB showing normal bowel gas pattern. Diet started and tolerating. NGT was removed. Monitor for recurrent symptoms. (4) Hypotension: Code(s): I95.9 - Hypotension, unspecified Status: Resolved Assessment and Plan: Patient with HoTN on admisison. He was started on low-dose dopamine to keep MAP at target level. He does have a history of low blood pressure at baseline but worse felt related to septic shock but consider hypovolemia. Lasix, metoprolol XL and Entresto on hold. 25% albumin was given. Midodrine added. Cortisol level was only 6.06 so stress dose hydrocortisone started 05/28 Changed to Levophed but now weaned off BP still soft at times. Weaned down on Solu-Cortef. Follow (5) Acute kidney injury superimposed on CKD: Code(s): N17.9 - Acute kidney failure, unspecified; N18.9 - Chronic kidney disease, unspecified Status: Acute Assessment and Plan: Patient has history of CKD. Baseline creatinine is unknown. Nephrology was consulted and appreciate their input. Probably related to the bradycardia, HoTN and sepsis Renal US normal right kidney but left kidney not identified. TCK normal. CT Abdomen showing bilateral nonobstructing renal stones. No hydronephrosis. Patient was given cautious amount of IV fluids considering patient is overall volume overloaded Cr 2.7 on admission but has improved to 1.1-1.3 Monitor UOP, renal fxn and electrolytes (6) Hyperkalemia: Code(s):
--- NOTE | 2024-06-01 12:02 | PCSTNOTE ---
Please refer to the Bedside Swallow Evaluation in the EMR. Please note, silent aspiration cannot be ruled out at bedside. This 79-year old male patient was evaluated at bedside to assess his ability to perform an adequate and safe swallow on multiple consistencies. The pt was admitted on 05/24/24 due to recurrent falls. An oral-motor exam was performed and revealed appropriate strength, ROM and symmetry. The pt denies the presence of dysphagia at this time. Trials of thin liquids via cup edge and straw, purees via spoon, and solids were administered at bedside. All consistencies resulted in timely oral transit and no oral residue. Laryngeal elevation was adequate and timely for all swallows. Vocal quality remained clear and no s/s aspiration were noted. Please note that silent aspiration cannot be ruled out at bedside. Given the results of this assessment, it is recommended this pt receive an oral diet of regular solids and thin liquids. No further ST is warranted at this time. Thank you for this referral.
--- NOTE | 2024-06-01 13:00 | PC.NURSE ---
This patient, Adolfo Ibarra, was transferred to [[id number]] on 06/01/24 at 1300. Personal belongings sent with patient. Report given to [Geetha RN and Ana Luisa RN]. Appropriate documentation sent with patient.
[2024-06-01] MEDS: ALTEPLASE 2 MG VIAL (CATHFLO) IV PUSH (22:19)
[2024-06-02] VITALS (17 sets, daily range): BP systolic 101–151; BP diastolic 58–94; PULSE 88–95; RESP 16–20; TEMP 36.1–36.5; O2SAT 99–100
[2024-06-02 04:06] LABS: Basophils Percent Auto 0.1 % (0.2-1.2); Eosinophils Absolute Auto 0.1 K/mm3 (0-0.3); Eosinophils Percent Auto 0.6 % (0-4.4); Hematocrit 27.8 % (42.0-52.0); Hemoglobin 9.1 g/dL (14.0-18.0); Immature Granulocyte Absolute 0.61 K/mm3 (0.00-0.031); Immature Granulocyte Percent A 5.6 % (0-0.5); Lymphocytes Absolute Auto 1.52 K/mm3 (0.9-3.2); Lymphocytes Percent Auto 14.1 % (18.3-44.2); Mean Corpuscular HGB Conc 32.7 g/dl (32-36); Mean Corpuscular Hemoglobin 31.7 pg (26-34); Mean Corpuscular Volume 96.9 fl (80-100); Mean Platelet Volume 10.6 fl (7.4-10.4); Monocytes Absolute Auto 0.7 K/mm3 (0.1-0.6); Monocytes Percent Auto 6.7 % (2.6-8.5); Neutrophils Absolute Auto 7.9 K/mm3 (1.3-6.7); Neutrophils Percent Auto 72.9 % (45.5-73.1); Platelet Count Result 229 k/mm3 (150-375); Red Blood Count 2.87 M/mm3 (4.6-6.20); Red Cell Distribution Width 13.7 % (11.5-14.5); White Blood Count 10.8 K/mm3 (4.5-10.0)
[2024-06-02 04:23] LABS: Alanine Aminotransferase 139 U/L (6-50); Albumin Level 2.9 g/dL (3.5-5.1); Alkaline Phosphatase 107 U/L (38-126); Anion Gap 8 mmol/L (4-12); Aspartate Amino Transferase 94 U/L (17-59); Bilirubin,Total 0.5 mg/dL (0.2-1.3); Blood Urea Nitrogen 41 mg/dL (9-20); Carbon Dioxide 24 mmol/L (22-30); Chloride 103 mmol/L (98-107); Estimated CRCL calculation 60 ml/min; Estimated Glomerular Filt Rate 58; Glucose 109 mg/dL (65-110); Phosphorus 2.1 mg/dL (2.5-4.5); Potassium 4.2 mmol/L (3.4-5.0); Sodium 135 mmol/L (137-145)
[2024-06-02 04:28] LABS: Platelet Estimate Adequate (Adequate)
[2024-06-02 04:29] LABS: Anisocytosis 1+; Microcytosis 1+ (NORMAL); Platelet Clumps Present
[2024-06-02 04:30] LABS: Burr Cells 1+; Schistocytes None Seen
[2024-06-02] MEDS: LEVOTHYROXINE SODIUM 150 MCG TABLET PO (06:40)
[2024-06-02] MEDS: CENTRAL LINE FLUSH 10 ML IV PUSH ×3 (06:40→22:00)
[2024-06-02] MEDS: HYDROCORTISONE SODIUM SUCCINATE 100 MG/2 ML VIAL 50 MG IV PUSH (06:40)
[2024-06-02] MEDS: AMIODARONE HCL 200 MG TABLET PO (08:34)
[2024-06-02] MEDS: PANTOPRAZOLE 40 MG TABLET PO ×2 (08:34→21:23)
[2024-06-02] MEDS: CLOPIDOGREL BISULFATE 75 MG TABLET PO (08:34)
[2024-06-02] MEDS: APIXABAN 5 MG TABLET PO ×2 (08:34→21:23)
[2024-06-02] MEDS: polyethylene glycoL 3350 17 GM POWD.PACK PO (08:34)
[2024-06-02] MEDS: POTASSIUM/PHOSPHORUS/SODIUM 1.5 GM PACKET 1 PACKET PO (08:34)
[2024-06-02] MEDS: MIDODRINE HCL 2.5 MG TABLET 5 MG PO ×3 (08:34→16:56)
[2024-06-02] MEDS: SENNA/DOCUSATE SODIUM TABLET 1 TAB PO ×2 (08:34→21:23)
[2024-06-02] MEDS: CHOLECALCIFEROL 1,000 UNITS TABLET 2000 UNITS PO (08:34)
--- NOTE | 2024-06-02 13:49 | PM.IMPN ---
Progress Note: A&P Assessment and Plan (1) Symptomatic bradycardia: Code(s): R00.1 - Bradycardia, unspecified Status: Acute Assessment and Plan: Patient presents with weakness and found to have symptomatic sinus bradycardia with hypotension which improved with dopamine infusion. He was on metoprolol and Amio at home which was held. Treated with atropine and Calcium Gluconate in ED. Electrolytes were replaced. Cardiology consulted and appreciate their input. Echo showing EF 60-65% and Grade I diastolic dysfunction. Mild MR/TR noted. He had clinical improvement. Amiodarone restarted. Dopamine changed to Levophed and now has been weaned off. Heart rate stable Follow on tele (2) Sepsis: Qualifiers: Sepsis type: sepsis due to unspecified organism Sepsis acute organ dysfunction status: unspecified Qualified Code(s): A41.9 - Sepsis, unspecified organism Code(s): A41.9 - Sepsis, unspecified organism Status: Acute Assessment and Plan: Patient met criteria for sepsis on arrival in the ER. Patient was not given the fluid bolus due to his overall volume overload. HoTN could be partly explained by the bradycardia and medications that he was on. He was started on Vanco and cefepime (05/25) once appropriate cultures obtained. UA was negative. CXR was clear (05/24) and repeat showing minimal congestive changes. Concern for right foot cellulitis. BCx growing Staph epidermidis in aerobic bottle only (felt to be a contaminant). 2nd set negative. BCx 05/29 NGTD MRSA nasal swab PCR negative. Wound Care and Podiatry evaluated the patient PCT level was low at 0.1 CT of the foot showing no evidence of osteomyelitis. CT A/P did show multifocal patchy areas of consolidation bilateral LL so consider PNA. otherwise no acute findings by CT Patient completed a course of abx. ST evaluation showing no concerns for aspiration Monitor off abx (3) Ileus: Code(s): K56.7 - Ileus, unspecified Status: Acute Assessment and Plan: Patient had not had bowel movement for many days. CT abdomen pelvis 05/26 without contrast did not show any evidence of obstruction. Patient was tolerating diet until 05/29 when he had recurrent n/v. NG tube was inserted and KUB showing NBGP. Repeat KUB showing mildly distended SB loops consistent with SBO. No free air. Patient had immediately drained 1 L of gastric fluid once NGT secured. He had a short course of Reglan. Documented BMs now. KUB showing normal bowel gas pattern. Diet started and tolerating. NGT was removed. Contineu Miralax Monitor for recurrent symptoms. (4) Hypotension: Code(s): I95.9 - Hypotension, unspecified Status: Resolved Assessment and Plan: Patient with HoTN on admisison. He was started on low-dose dopamine to keep MAP at target level. He does have a history of low blood pressure at baseline but worse felt related to septic shock but consider hypovolemia. Lasix, metoprolol XL and Entresto on hold. 25% albumin was given. Midodrine added. Cortisol level was only 6.06 so stress dose hydrocortisone started 05/28 Changed to Levophed but now weaned off BP more stable. Weaning off Solu-Cortef. Decrease Midodrine Follow (5) Acute kidney injury superimposed on CKD: Code(s): N17.9 - Acute kidney failure, unspecified; N18.9 - Chronic kidney disease, unspecified Status: Acute Assessment and Plan: Patient has history of CKD. Baseline creatinine is unknown. Nephrology was consulted and appreciate their input. Probably related to the bradycardia, HoTN and sepsis Renal US normal right kidney but left kidney not identified. TCK normal. CT Abdomen showing bilateral nonobstructing renal stones. No hydronephrosis. Patient was given cautious amount of IV fluids considering patient is overall volume overloaded Cr 2.7 on admission but has improved to 1.1-1.3 Monitor UOP, renal fxn and electrolytes (6) Hyperkalemia: Code
[2024-06-02] MEDS: FUROSEMIDE INJ 40 MG/4 ML VIAL 20 MG IV PUSH (14:32)
[2024-06-03] VITALS (18 sets, daily range): BP systolic 102–127; BP diastolic 46–74; PULSE 90–97; RESP 16–20; TEMP 36.2–36.6; O2SAT 97–100
[2024-06-03] MEDS: CENTRAL LINE FLUSH 10 ML IV PUSH ×3 (05:54→20:30)
[2024-06-03] MEDS: LEVOTHYROXINE SODIUM 150 MCG TABLET PO (05:54)
[2024-06-03 06:19] LABS: Basophils Percent Auto 0.3 % (0.2-1.2); Eosinophils Absolute Auto 0.3 K/mm3 (0-0.3); Hematocrit 28.9 % (42.0-52.0); Hemoglobin 9.5 g/dL (14.0-18.0); Immature Granulocyte Absolute 1.02 K/mm3 (0.00-0.031); Immature Granulocyte Percent A 10.3 % (0-0.5); Lymphocytes Absolute Auto 1.75 K/mm3 (0.9-3.2); Lymphocytes Percent Auto 17.7 % (18.3-44.2); Mean Corpuscular HGB Conc 32.9 g/dl (32-36); Mean Corpuscular Hemoglobin 32.2 pg (26-34); Mean Platelet Volume 10.8 fl (7.4-10.4); Monocytes Absolute Auto 0.8 K/mm3 (0.1-0.6); Monocytes Percent Auto 7.9 % (2.6-8.5); Neutrophils Percent Auto 60.8 % (45.5-73.1); Platelet Count Result 241 k/mm3 (150-375); Red Blood Count 2.95 M/mm3 (4.6-6.20); Red Cell Distribution Width 13.8 % (11.5-14.5); White Blood Count 9.9 K/mm3 (4.5-10.0)
[2024-06-03 06:30] LABS: Alanine Aminotransferase 156 U/L (6-50); Alkaline Phosphatase 104 U/L (38-126); Anion Gap 6 mmol/L (4-12); Aspartate Amino Transferase 101 U/L (17-59); Bilirubin,Total 0.6 mg/dL (0.2-1.3); Blood Urea Nitrogen 38 mg/dL (9-20); Calcium 8.4 mg/dL (8.4-10.2); Carbon Dioxide 27 mmol/L (22-30); Chloride 102 mmol/L (98-107); Estimated CRCL calculation 65 ml/min; Estimated Glomerular Filt Rate > 60; Glucose 84 mg/dL (65-110); Phosphorus 2.6 mg/dL (2.5-4.5); Potassium 3.8 mmol/L (3.4-5.0); Sodium 135 mmol/L (137-145)
[2024-06-03] MEDS: CHOLECALCIFEROL 1,000 UNITS TABLET 2000 UNITS PO (09:02)
[2024-06-03] MEDS: MIDODRINE HCL 2.5 MG TABLET 5 MG PO ×3 (09:03→18:28)
[2024-06-03] MEDS: AMIODARONE HCL 200 MG TABLET PO (09:03)
[2024-06-03] MEDS: APIXABAN 5 MG TABLET PO ×2 (09:03→20:30)
[2024-06-03] MEDS: PANTOPRAZOLE 40 MG TABLET PO ×2 (09:03→20:30)
[2024-06-03] MEDS: SENNA/DOCUSATE SODIUM TABLET 1 TAB PO ×2 (09:03→20:30)
[2024-06-03] MEDS: CLOPIDOGREL BISULFATE 75 MG TABLET PO (09:04)
[2024-06-03] MEDS: polyethylene glycoL 3350 17 GM POWD.PACK PO (09:04)
--- NOTE | 2024-06-03 09:15 | PCNFU ---
Nutrition Follow-Up Complete: Suboptimal Energy Intake as related to SBO as evidenced by NPO/NGT. Goal:Meet estimated nutritional needs. Pt meeting goal, continue with same goal. Pt current nutrition is heart healthy, Ensure compact BID. Nutrition recommendation: continue with current plan of care Last recorded weight is 128.3 kg. Bowel Motility: +BM 05/31 Labs Reviewed: Hgb:9.5, HCT:28.9, Alb:3.0, NA:135, BUN:38 Meds Noted: eliquis, zofromega Skin: no skin breakdown noted Additional Notes: Pt on a heart healthy diet now, intake 50-100% of meals plus Ensure compact BID. Encourage po intake, Agree with diet orders. Will monitor weight, labs, skin, diet orders, meds every 7 days.
--- NOTE | 2024-06-03 09:23 | PM.IMPN ---
Progress Note: A&P Assessment and Plan (1) Symptomatic bradycardia: Code(s): R00.1 - Bradycardia, unspecified Status: Acute Assessment and Plan: Patient presents with weakness and found to have symptomatic sinus bradycardia with hypotension which improved with dopamine infusion. He was on metoprolol and Amio at home which was held. Treated with atropine and Calcium Gluconate in ED. Electrolytes were replaced. Cardiology consulted and appreciate their input. Echo showing EF 60-65% and Grade I diastolic dysfunction. Mild MR/TR noted. He had clinical improvement. Amiodarone restarted. Dopamine changed to Levophed and now has been weaned off. Heart rate stable Follow on tele (2) Sepsis: Qualifiers: Sepsis acute organ dysfunction status: unspecified Sepsis type: sepsis due to unspecified organism Qualified Code(s): A41.9 - Sepsis, unspecified organism Code(s): A41.9 - Sepsis, unspecified organism Status: Acute Assessment and Plan: Patient met criteria for sepsis on arrival in the ER. Patient was not given the fluid bolus due to his overall volume overload. HoTN could be partly explained by the bradycardia and medications that he was on. He was started on Vanco and cefepime (05/25) once appropriate cultures obtained. UA was negative. CXR was clear (05/24) and repeat showing minimal congestive changes. Concern for right foot cellulitis. BCx growing Staph epidermidis in aerobic bottle only (felt to be a contaminant). 2nd set negative. BCx 05/29 NGTD MRSA nasal swab PCR negative. Wound Care and Podiatry evaluated the patient PCT level was low at 0.1 CT of the foot showing no evidence of osteomyelitis. CT A/P did show multifocal patchy areas of consolidation bilateral LL so consider PNA otherwise no acute findings by CT Patient completed a course of abx. ST evaluation showing no concerns for aspiration Monitor off abx (3) Ileus: Code(s): K56.7 - Ileus, unspecified Status: Acute Assessment and Plan: Patient had not had bowel movement for many days. CT abdomen pelvis 05/26 without contrast did not show any evidence of obstruction. Patient was tolerating diet until 05/29 when he had recurrent n/v. NG tube was inserted and KUB showing NBGP. Repeat KUB showing mildly distended SB loops consistent with SBO. No free air. Patient had immediately drained 1 L of gastric fluid once NGT secured. He had a short course of Reglan. Documented BMs with last one 05/31. KUB showing normal bowel gas pattern. Diet started and tolerating. NGT was removed. Contineu Miralax Monitor for recurrent symptoms. Increase activity. (4) Hypotension: Code(s): I95.9 - Hypotension, unspecified Status: Resolved Assessment and Plan: Patient with HoTN on admisison. He was started on low-dose dopamine to keep MAP at target level. He does have a history of low blood pressure at baseline but worse felt related to septic shock but consider hypovolemia. Lasix, metoprolol XL and Entresto on hold. 25% albumin was given. Midodrine added. Cortisol level was only 6.06 so stress dose hydrocortisone started 05/28 Changed to Levophed but now weaned off BP more stable. Weaned off Solu-Cortef now. Continue current Midodrine dose but continue weaning tomorrow Follow (5) Acute kidney injury superimposed on CKD: Code(s): N17.9 - Acute kidney failure, unspecified; N18.9 - Chronic kidney disease, unspecified Status: Acute Assessment and Plan: Patient has history of CKD. Baseline creatinine is unknown. Nephrology was consulted and appreciate their input. Probably related to the bradycardia, HoTN and sepsis Renal US normal right kidney but left kidney not identified. TCK normal. CT Abdomen showing bilateral nonobstructing renal stones. No hydronephrosis. Patient was given cautious amount of IV fluids considering patient is overall volume overloaded Cr 2.7 on admission but has improved to 1.1-1
[2024-06-03] MEDS: FUROSEMIDE INJ 40 MG/4 ML VIAL 20 MG IV PUSH (12:11)
--- NOTE | 2024-06-03 16:28 | PM.PNCARD ---
Progress Note: A&P Assessment and Plan (1) Symptomatic bradycardia: Code(s): R00.1 - Bradycardia, unspecified Status: Acute Assessment and Plan: Resolved. Tolerating PO Amiodarone currently. (2) Acute kidney injury superimposed on CKD: Code(s): N17.9 - Acute kidney failure, unspecified; N18.9 - Chronic kidney disease, unspecified Status: Acute Assessment and Plan: RANDALL resolved. (3) Peripheral arterial disease: Code(s): I73.9 - Peripheral vascular disease, unspecified Status: Acute Assessment and Plan: Continue Plavix for now along with high intensity statin. (4) Paroxysmal atrial fibrillation: Code(s): I48.0 - Paroxysmal atrial fibrillation Status: Acute Assessment and Plan: Continue Amiodarone and Eliquis. 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 Plan Recommendations and plan discussed with Hospitalist. Subjective Date/time seen: 06/03/24 16:28 Interval history: Reason for visit: F/U for bradycardia, AFIB Feeling okay today. Tele stable. Review of Systems Review of Systems: All systems reviewed & are unremarkable except as noted in HPI and below (HPI) Exam Const: General: comfortable and no acute distress HENMT: Mouth: Yes moist mucous membranes Eyes: General: appearance normal, both eyes and all related structures Sclera: sclerae normal Resp: Effort & Inspection: normal respiratory effort Cardio: Rate: regular rate Rhythm: regular rhythm Neuro: Speech: normal speech Psych: Mental Status: mental status grossly normal Affect: normal affect Objective Data Vital Signs Vital Signs: Vital Signs - 24 hr 06/02/24 18:00 06/02/24 20:18 06/02/24 23:49 Temperature 36.5 C 36.5 C Pulse Rate 94 94 92 Respiratory Rate 16 16 Blood Pressure 120/77 122/94 H Pulse Oximetry 100 100 Oxygen Delivery Oxygen Flow Rate 06/02/24 20:00 06/02/24 22:00 06/03/24 00:00 Temperature Pulse Rate 95 95 90 Respiratory Rate Blood Pressure Pulse Oximetry Oxygen Delivery Oxygen Flow Rate 06/02/24 21:15 06/02/24 23:40 06/03/24 02:00 Temperature Pulse Rate 90 Respiratory Rate Blood Pressure Pulse Oximetry 100 Oxygen Delivery Room Air Nasal Cannula Oxygen Flow Rate 2 06/03/24 04:00 06/03/24 04:30 06/03/24 06:07 Temperature 36.6 C Pulse Rate 92 90 Respiratory Rate 16 Blood Pressure 117/46 L Pulse Oximetry 99 100 Oxygen Delivery Nasal Cannula Oxygen Flow Rate 2 06/03/24 06:00 06/03/24 08:56 06/03/24 09:03 Temperature 36.2 C L Pulse Rate 92 97 96 Respiratory Rate 16 Blood Pressure 114/71 Pulse Oximetry 100 Oxygen Delivery Oxygen Flow Rate 06/03/24 12:17 Temperature 36.6 C Pulse Rate 95 Respiratory Rate 18 Blood Pressure 102/64 Pulse Oximetry 97 Oxygen Delivery Oxygen Flow Rate Intake/Output Intake/Output: Intake & Output 05/31/24 06/01/24 06/02/24 06/03/24 23:59 23:59 23:59 23:59 Intake Total 1930 1270 1560 1040 Output Total 875 738 0165 600 Balance 1580 520 -140 440 Meds/Results Medications: Active Medications Generic Name Dose Route Start Last Admin Trade Name Freq PRN Reason Stop Dose Admin Acetaminophen 650 mg 05/24/24 21:45 Acetaminophen 325 Mg Tablet PO Q4H PRN Mild Pain (1-3) or Fever Alteplase, Recombinant 2 mg 06/01/24 21:51 06/01/24 22:19 Alteplase 2 Mg Vial (Cathflo) IV PUSH 2 mg ONCE PRN Administration Line Occlusion Amiodarone HCl 200 mg 05/30/24 12:22 06/03/24 09:03 Amiodarone Hcl 200 Mg Tablet PO 200 mg DAILY@0800 [facility] Administration Apixaban 5 mg 05/25/24 09:00 06/03/24 09:03 Apixaban 5 Mg Tablet PO 5 mg Q12HR [place] Administration Atorvastatin
[2024-06-04] VITALS (17 sets, daily range): BP systolic 103–137; BP diastolic 37–84; PULSE 88–100; RESP 18–22; TEMP 36.3–36.6; O2SAT 97–100
[2024-06-04] MEDS: CENTRAL LINE FLUSH 10 ML IV PUSH ×3 (05:53→20:53)
[2024-06-04] MEDS: LEVOTHYROXINE SODIUM 150 MCG TABLET PO (05:53)
[2024-06-04 06:03] LABS: Basophils Absolute Auto 0.1 K/mm3 (0.0-0.1); Basophils Percent Auto 0.5 % (0.2-1.2); Eosinophils Absolute Auto 0.3 K/mm3 (0-0.3); Eosinophils Percent Auto 3.1 % (0-4.4); Hematocrit 29.3 % (42.0-52.0); Hemoglobin 9.7 g/dL (14.0-18.0); Immature Granulocyte Absolute 1.24 K/mm3 (0.00-0.031); Immature Granulocyte Percent A 12.2 % (0-0.5); Lymphocytes Absolute Auto 1.52 K/mm3 (0.9-3.2); Mean Corpuscular HGB Conc 33.1 g/dl (32-36); Mean Corpuscular Hemoglobin 32.1 pg (26-34); Mean Platelet Volume 10.6 fl (7.4-10.4); Monocytes Absolute Auto 0.8 K/mm3 (0.1-0.6); Monocytes Percent Auto 7.8 % (2.6-8.5); Neutrophils Absolute Auto 6.2 K/mm3 (1.3-6.7); Neutrophils Percent Auto 61.4 % (45.5-73.1); Platelet Count Result 223 k/mm3 (150-375); Red Blood Count 3.02 M/mm3 (4.6-6.20); Red Cell Distribution Width 13.8 % (11.5-14.5); White Blood Count 10.1 K/mm3 (4.5-10.0)
[2024-06-04 06:14] LABS: Alanine Aminotransferase 148 U/L (6-50); Albumin Level 2.8 g/dL (3.5-5.1); Alkaline Phosphatase 108 U/L (38-126); Anion Gap 4 mmol/L (4-12); Aspartate Amino Transferase 82 U/L (17-59); Bilirubin,Total 0.5 mg/dL (0.2-1.3); Blood Urea Nitrogen 37 mg/dL (9-20); Calcium 8.6 mg/dL (8.4-10.2); Carbon Dioxide 30 mmol/L (22-30); Chloride 100 mmol/L (98-107); Estimated CRCL calculation 65 ml/min; Estimated Glomerular Filt Rate > 60; Glucose 84 mg/dL (65-110); Magnesium 1.9 mg/dL (1.6-2.3); Potassium 3.9 mmol/L (3.4-5.0); Sodium 134 mmol/L (137-145)
[2024-06-04] MEDS: SENNA/DOCUSATE SODIUM TABLET 1 TAB PO ×2 (08:33→20:53)
[2024-06-04] MEDS: APIXABAN 5 MG TABLET PO ×2 (08:33→20:53)
[2024-06-04] MEDS: PANTOPRAZOLE 40 MG TABLET PO ×2 (08:33→20:53)
[2024-06-04] MEDS: polyethylene glycoL 3350 17 GM POWD.PACK PO (08:33)
[2024-06-04] MEDS: CLOPIDOGREL BISULFATE 75 MG TABLET PO (08:33)
[2024-06-04] MEDS: AMIODARONE HCL 200 MG TABLET PO (08:36)
[2024-06-04] MEDS: CHOLECALCIFEROL 1,000 UNITS TABLET 2000 UNITS PO (08:36)
[2024-06-04] MEDS: MIDODRINE HCL 2.5 MG TABLET 5 MG PO ×3 (08:37→17:08)
[2024-06-04 12:22] LABS: Add Urine Microscopic? YES; Appearance Urine Cloudy (Clear); Bacteria Urine None Seen /hpf; Bilirubin Urine Negative (Negative); Blood Urine 3+ (Negative); Color Urine Dark Yellow (Yellow); Glucose Urine UA 2+ mg/dL (Negative); Hyaline Casts Urine Present /lpf; Ketones Urine Negative (Negative); Leukocyte Esterase Ur 1+ LEU/UL (Negative); Nitrate Urine Negative (Negative); Protein Urine 2+ mg/dL (Negative); RBC Urine >100 /hpf (0-2); Specific Grav Ur 1.018 (1.001-1.035); Squamous Epithelial Cell Urine Occasional /hpf (Few); pH Urine 5.5 (5.0-9.0)
--- NOTE | 2024-06-04 13:39 | PM.IMPN ---
Progress Note: A&P Assessment and Plan (1) Symptomatic bradycardia: Code(s): R00.1 - Bradycardia, unspecified Status: Acute Assessment and Plan: Patient presents with weakness and found to have symptomatic sinus bradycardia with hypotension which improved with dopamine infusion. He was on metoprolol and Amio at home which was held. Treated with atropine and Calcium Gluconate in ED. Electrolytes were replaced. Cardiology consulted and appreciate their input. Echo showing EF 60-65% and Grade I diastolic dysfunction. Mild MR/TR noted. He had clinical improvement. Amiodarone restarted. Dopamine changed to Levophed and now has been weaned off. Heart rate stable idalia is resolved (2) Sepsis: Qualifiers: Sepsis type: sepsis due to unspecified organism Sepsis acute organ dysfunction status: unspecified Qualified Code(s): A41.9 - Sepsis, unspecified organism Code(s): A41.9 - Sepsis, unspecified organism Status: Acute Assessment and Plan: Patient met criteria for sepsis on arrival in the ER. Patient was not given the fluid bolus due to his overall volume overload. HoTN could be partly explained by the bradycardia and medications that he was on. He was started on Vanco and cefepime (05/25) once appropriate cultures obtained. UA was negative. CXR was clear (05/24) and repeat showing minimal congestive changes. Concern for right foot cellulitis. BCx growing Staph epidermidis in aerobic bottle only (felt to be a contaminant). 2nd set negative. BCx 05/29 NGTD MRSA nasal swab PCR negative. Wound Care and Podiatry evaluated the patient PCT level was low at 0.1 CT of the foot showing no evidence of osteomyelitis. CT A/P did show multifocal patchy areas of consolidation bilateral LL so consider PNA otherwise no acute findings by CT Patient completed a course of abx. ST evaluation showing no concerns for aspiration Monitor off abx (3) Ileus: Code(s): K56.7 - Ileus, unspecified Status: Acute Assessment and Plan: Patient had not had bowel movement for many days. CT abdomen pelvis 05/26 without contrast did not show any evidence of obstruction. Patient was tolerating diet until 05/29 when he had recurrent n/v. NG tube was inserted and KUB showing NBGP. Repeat KUB showing mildly distended SB loops consistent with SBO. No free air. Patient had immediately drained 1 L of gastric fluid once NGT secured. He had a short course of Reglan. Documented BMs with last one 05/31. KUB showing normal bowel gas pattern. Diet started and tolerating. NGT was removed. Contineu Miralax Monitor for recurrent symptoms. Increase activity. (4) Hypotension: Code(s): I95.9 - Hypotension, unspecified Status: Resolved Assessment and Plan: Patient with HoTN on admisison. He was started on low-dose dopamine to keep MAP at target level. He does have a history of low blood pressure at baseline but worse felt related to septic shock but consider hypovolemia. Lasix, metoprolol XL and Entresto on hold. 25% albumin was given. Midodrine added. Cortisol level was only 6.06 so stress dose hydrocortisone started 05/28 Changed to Levophed but now weaned off BP more stable. Weaned off Solu-Cortef now. Continue current Midodrine dose but continue weaning tomorrow (5) Acute kidney injury superimposed on CKD: Code(s): N17.9 - Acute kidney failure, unspecified; N18.9 - Chronic kidney disease, unspecified Status: Acute Assessment and Plan: Patient has history of CKD. Baseline creatinine is unknown. Nephrology was consulted and appreciate their input. Probably related to the bradycardia, HoTN and sepsis Renal US normal right kidney but left kidney not identified. TCK normal. CT Abdomen showing bilateral nonobstructing renal stones. No hydronephrosis. Patient was given cautious amount of IV fluids considering patient is overall volume overloaded Cr 2.7 on admission but has improved to 1.1-1.3
[2024-06-04] MEDS: SODIUM CHLORIDE 0.9% IV 500 ML 125 ML IV CONT (15:50)
[2024-06-05] VITALS (12 sets, daily range): BP systolic 119–130; BP diastolic 68–83; PULSE 84–93; RESP 16–20; TEMP 35.7–36.6; O2SAT 89–100
[2024-06-05] MEDS: CENTRAL LINE FLUSH 10 ML IV PUSH ×3 (05:37→21:55)
[2024-06-05] MEDS: LEVOTHYROXINE SODIUM 150 MCG TABLET PO (05:37)
[2024-06-05 05:55] LABS: Hematocrit 28.1 % (42.0-52.0); Hemoglobin 9.3 g/dL (14.0-18.0); Mean Corpuscular HGB Conc 33.1 g/dl (32-36); Mean Corpuscular Hemoglobin 32.3 pg (26-34); Mean Corpuscular Volume 97.6 fl (80-100); Mean Platelet Volume 10.6 fl (7.4-10.4); Platelet Count Result 227 k/mm3 (150-375); Red Blood Count 2.88 M/mm3 (4.6-6.20); Red Cell Distribution Width 13.8 % (11.5-14.5); White Blood Count 9.2 K/mm3 (4.5-10.0)
[2024-06-05 06:08] LABS: Alanine Aminotransferase 137 U/L (6-50); Albumin Level 2.6 g/dL (3.5-5.1); Alkaline Phosphatase 105 U/L (38-126); Anion Gap 4 mmol/L (4-12); Aspartate Amino Transferase 79 U/L (17-59); Bilirubin,Total 0.6 mg/dL (0.2-1.3); Blood Urea Nitrogen 36 mg/dL (9-20); Calcium 8.1 mg/dL (8.4-10.2); Carbon Dioxide 30 mmol/L (22-30); Chloride 99 mmol/L (98-107); Estimated CRCL calculation 78 ml/min; Estimated Glomerular Filt Rate > 60; Glucose 85 mg/dL (65-110); Potassium 3.7 mmol/L (3.4-5.0); Sodium 133 mmol/L (137-145)
[2024-06-05] MEDS: CHOLECALCIFEROL 1,000 UNITS TABLET 2000 UNITS PO (08:13)
[2024-06-05] MEDS: polyethylene glycoL 3350 17 GM POWD.PACK PO (08:13)
[2024-06-05] MEDS: CLOPIDOGREL BISULFATE 75 MG TABLET PO (08:13)
[2024-06-05] MEDS: AMIODARONE HCL 200 MG TABLET PO (08:14)
[2024-06-05] MEDS: APIXABAN 5 MG TABLET PO ×2 (08:14→20:01)
[2024-06-05] MEDS: MIDODRINE HCL 2.5 MG TABLET 5 MG PO ×3 (08:14→17:30)
[2024-06-05] MEDS: PANTOPRAZOLE 40 MG TABLET PO ×2 (08:14→20:01)
[2024-06-05] MEDS: SENNA/DOCUSATE SODIUM TABLET 1 TAB PO ×2 (08:14→20:01)
[2024-06-05] MEDS: TAMSULOSIN HCL 0.4 MG CAPSULE PO (08:35)
--- NOTE | 2024-06-05 10:34 | PC.NURSE ---
This patient, Adolfo Ibarra, was received from [ IMU [id number]] on 06/05/24 at 1203. Patient/family oriented to unit policies and routines
--- NOTE | 2024-06-05 10:49 | PC.NURSE ---
This patient, Adolfo Ibarra, was transferred to [facility] via bed without issues on 06/05/24 at 1040. Personal belongings sent with patient. Report given to NIKI Guerrero at 0900. Appropriate documentation sent with patient.
--- NOTE | 2024-06-05 13:57 | P.PNIM_ITS ---
Progress Note: A&P Assessment and Plan (1) Symptomatic bradycardia: Code(s): R00.1 - Bradycardia, unspecified Status: Acute Assessment and Plan: Patient presents with weakness and found to have symptomatic sinus bradycardia with hypotension which improved with dopamine infusion. He was on metoprolol and Amio at home which was held. Treated with atropine and Calcium Gluconate in ED. Electrolytes were replaced. Cardiology consulted and appreciate their input. Echo showing EF 60-65% and Grade I diastolic dysfunction. Mild MR/TR noted. He had clinical improvement. Amiodarone restarted. Dopamine changed to Levophed and now has been weaned off. pt is on the medical floor now Heart rate stable idalia is resolved (2) Sepsis: Qualifiers: Sepsis type: sepsis due to unspecified organism Sepsis acute organ dysfunction status: unspecified Qualified Code(s): A41.9 - Sepsis, unspecified organism Code(s): A41.9 - Sepsis, unspecified organism Status: Acute Assessment and Plan: Patient met criteria for sepsis on arrival in the ER. Patient was not given the fluid bolus due to his overall volume overload. HoTN could be partly explained by the bradycardia and medications that he was on. He was started on Vanco and cefepime (05/25) once appropriate cultures obtained. UA was negative. CXR was clear (05/24) and repeat showing minimal congestive changes. Concern for right foot cellulitis. BCx growing Staph epidermidis in aerobic bottle only (felt to be a contaminant). 2nd set negative. BCx 05/29 NGTD MRSA nasal swab PCR negative. Wound Care and Podiatry evaluated the patient PCT level was low at 0.1 CT of the foot showing no evidence of osteomyelitis. CT A/P did show multifocal patchy areas of consolidation bilateral LL so consider PNA otherwise no acute findings by CT Patient completed a course of abx. ST evaluation showing no concerns for aspiration Monitor off abx (3) Ileus: Code(s): K56.7 - Ileus, unspecified Status: Acute Assessment and Plan: Patient had not had bowel movement for many days. CT abdomen pelvis 05/26 without contrast did not show any evidence of obstruction. Patient was tolerating diet until 05/29 when he had recurrent n/v. NG tube was inserted and KUB showing NBGP. Repeat KUB showing mildly distended SB loops consistent with SBO. No free air. Patient had immediately drained 1 L of gastric fluid once NGT secured. He had a short course of Reglan. Documented BMs with last one 05/31. KUB showing normal bowel gas pattern. Diet started and tolerating. NGT was removed. Contineu Miralax Monitor for recurrent symptoms. Increase activity. PT/ OT (4) Hypotension: Code(s): I95.9 - Hypotension, unspecified Status: Resolved Assessment and Plan: Patient with HoTN on admisison. He was started on low-dose dopamine to keep MAP at target level. He does have a history of low blood pressure at baseline but worse felt related to septic shock but consider hypovolemia. Lasix, metoprolol XL and Entresto on hold. 25% albumin was given. Midodrine added. Cortisol level was only 6.06 so stress dose hydrocortisone started 05/28 Changed to Levophed but now weaned off BP more stable. Weaned off Solu-Cortef now. Continue current Midodrine dose but continue weaning tomorrow (5) Acute kidney injury superimposed on CKD: Code(s): N17.9 - Acute kidney failure, unspecified; N18.9 - Chronic kidney disease, unspecified Status: Acute Assessment and Plan: Patient has history of CKD. Baseline creatinine is unknown. Nephrology was co nsulted and appreciate
[2024-06-05] MEDS: HYDROCORTISONE 1% 30 GM CREAM 1 APPLIC TOPICAL ×2 (17:31→20:01)
[2024-06-05] MEDS: AMOXICILLIN 500 MG CAPSULE PO (20:00)
[2024-06-06 02:24] VITALS: BP 127/76
--- NOTE | 2024-06-06 03:31 | PC.NURSE ---
0305: Informed Dr. Ash[place] [id number] [place] 06/05/2024 but has not voided since removal. Pt. does not feel the need to void. Bladder scan done showing 233 ml. Noted that Pt. had 1500 ml intake this shift with last output documented on 06/05/2024 at 0500 with output of 400 ml. Pt. has Hx. CKD stage 3a (per Nephrology) and was admitted with RANDALL on CKD. Dr. Bauer states that there is no need to re-insert a max and feels that his CKD is contributing to decreased urine output.
[2024-06-06 05:53] VITALS: BP 144/82; PULSE 87; RESP 20; TEMP 36.3; O2SAT 100
[2024-06-06] MEDS: LEVOTHYROXINE SODIUM 150 MCG TABLET PO (06:04)
[2024-06-06 06:15] LABS: Hematocrit 27.7 % (42.0-52.0); Hemoglobin 9.1 g/dL (14.0-18.0); Mean Corpuscular HGB Conc 32.9 g/dl (32-36); Mean Corpuscular Hemoglobin 31.7 pg (26-34); Mean Corpuscular Volume 96.5 fl (80-100); Mean Platelet Volume 10.7 fl (7.4-10.4); Platelet Count Result 225 k/mm3 (150-375); Red Blood Count 2.87 M/mm3 (4.6-6.20); Red Cell Distribution Width 13.8 % (11.5-14.5)
[2024-06-06 06:26] LABS: Anion Gap 4 mmol/L (4-12); Blood Urea Nitrogen 28 mg/dL (9-20); Calcium 8.3 mg/dL (8.4-10.2); Carbon Dioxide 29 mmol/L (22-30); Chloride 97 mmol/L (98-107); Estimated CRCL calculation 79 ml/min; Estimated Glomerular Filt Rate > 60; Glucose 98 mg/dL (65-110); Potassium 3.7 mmol/L (3.4-5.0); Sodium 130 mmol/L (137-145)
[2024-06-06 08:00] VITALS: BP 136/91; PULSE 85; RESP 14; TEMP 35.8; O2SAT 100
[2024-06-06] MEDS: HYDROCORTISONE 1% 30 GM CREAM 1 APPLIC TOPICAL (08:20)
[2024-06-06] MEDS: PANTOPRAZOLE 40 MG TABLET PO (08:50)
[2024-06-06] MEDS: CLOPIDOGREL BISULFATE 75 MG TABLET PO (08:50)
[2024-06-06 08:51] VITALS: PULSE 85
[2024-06-06] MEDS: AMIODARONE HCL 200 MG TABLET PO (08:51)
[2024-06-06] MEDS: MIDODRINE HCL 2.5 MG TABLET 5 MG PO ×2 (08:51→12:14)
[2024-06-06] MEDS: ATORVASTATIN 40 MG TABLET PO (08:51)
[2024-06-06] MEDS: AMOXICILLIN 500 MG CAPSULE PO (08:51)
[2024-06-06] MEDS: APIXABAN 5 MG TABLET PO (08:51)
[2024-06-06] MEDS: TAMSULOSIN HCL 0.4 MG CAPSULE PO (08:52)
[2024-06-06] MEDS: CHOLECALCIFEROL 1,000 UNITS TABLET 2000 UNITS PO (08:52)
[2024-06-06] MEDS: SENNA/DOCUSATE SODIUM TABLET 1 TAB PO (08:53)
[2024-06-06] MEDS: polyethylene glycoL 3350 17 GM POWD.PACK PO (08:53)
--- NOTE | 2024-06-06 09:16 | WPDURCON ---
Assessment and Plan Assessment and plan (1) BPH (benign prostatic hyperplasia): Code(s): N40.0 - Benign prostatic hyperplasia without lower urinary tract symptoms Status: Acute Assessment and Plan: Noted to have enlarged prostate on CT. He had successful void trial on 06/05/24. Continue tamsulosin. Will add finasteride. Will arrange outpatient follow up for continued monitoring after completion of rehab. (2) Bladder stone: Code(s): N21.0 - Calculus in bladder Status: Acute Assessment and Plan: 1.4 cm bladder stone. Secondary to incomplete emptying from BPH. Started on tamsulosin and finasteride as above. Will arrange laser lithotripsy of bladder stone as an outpatient (3) Renal stones: Code(s): N20.0 - Calculus of kidney Status: Acute Assessment and Plan: Bilateral nonobstructing stones, largest measuring 1 cm on right. Will arrange right ESWL as an outpatient. Urology Consult Note HPI Date Seen: 06/06/24 Requesting Physician: Heide Ortiz MD Primary Care Provider: Erik Granger, PA Consult Narrative Narrative: Adolfo Ibarra is a 79 year old male with history of CHF, AFib on chronic anticoagulation, and right foot wound who is being seen in consultation for evaluation of suspected BPH. Patient was originally hospitalized on 05/24/2024 due to weakness and falls. He was admitted to the ICU for hypotension and symptomatic bradycardia. He has improved throughout his hospital course it is noted well on the medical floor. Upon admission, a Escalante catheter was placed due to limited mobility. This was removed yesterday, 06/05/24. He was unable to void after 6 hours but a bladder scan was completed with <200 therefore he was given more time to attempt to void. He has now been able to void and had an incontinent episode. He denies suprapubic pressure, pain, or fullness. He states that prior to admission, he was voiding without difficulty. He has no prior urologic history. His family member at the bedside reports for about 3 days prior to presentation, he was having difficulty urinating which they attributed to his immobility. He was also found to have an ileus during his admission which has resolved and he is now having regular bowel movements. He denies dysuria, hematuria, or any other urologic concerns at this time. He has been started on tamsulosin and is tolerating this well. BP is stable and he is asymptomatic. He is hopeful for discharge to rehab facility today. Review of Systems Review of Systems: All systems reviewed & are unremarkable except as noted in HPI and below PMFSH Past Medical History Medical History (Updated 06/06/24 @ 11:31 by Bailee De La Paz PA-C) Abnormal results of kidney function studies Acute blood loss anemia Afib CHF (congestive heart failure) CKD (chronic kidney disease) Coffee ground emesis Peripheral arterial disease Pneumonia Surgical History Surgical History H/O skin graft History of angioplasty of peripheral vessel Family History Family History Sibling Atrial fibrillation Cerebrovascular accident Father Myocardial infarction Other Myocardial infarct, old Social History Social History Smoking packs per day: 0.5 Smoking cigarettes per day: 10.0 Years smoked: 3 Smoking pack-years: 1.50 Smoking status: Former smoker Tobacco type: cigarettes Second hand tobacco smoke exposure: No Smoking end date: 10/01/70 Alcohol intake: former Alcohol use details: 1-2 drinks a week Substance use: never Substance use type: does not use Do You Feel Safe in your Home?: Yes Lack of Transportation: No Lack of Food: Never True Current Housing: I Have Housing Concerned About Future Housing: No Difficulty Paying Gas/Electric Bills: No Diffi
--- NOTE | 2024-06-06 13:59 | PM.DS ---
DS: Admitting Diagnosis Discharge Date 06/06/2024 Admitting Diagnosis Weakness and fall DS: Discharge Diagnosis Discharge Diagnosis (1) Symptomatic bradycardia: Code(s): R00.1 - Bradycardia, unspecified Status: Acute (2) Sepsis: Qualifiers: Sepsis type: sepsis due to unspecified organism Sepsis acute organ dysfunction status: unspecified Qualified Code(s): A41.9 - Sepsis, unspecified organism Code(s): A41.9 - Sepsis, unspecified organism Status: Acute (3) Ileus: Code(s): K56.7 - Ileus, unspecified Status: Acute (4) Hypotension: Code(s): I95.9 - Hypotension, unspecified Status: Resolved (5) Acute kidney injury superimposed on CKD: Code(s): N17.9 - Acute kidney failure, unspecified; N18.9 - Chronic kidney disease, unspecified Status: Acute (6) Hyperkalemia: Code(s): E87.5 - Hyperkalemia Status: Acute (7) Peripheral arterial disease: Code(s): I73.9 - Peripheral vascular disease, unspecified Status: Acute (8) Afib: Qualifiers: Atrial fibrillation type: paroxysmal Qualified Code(s): I48.0 - Paroxysmal atrial fibrillation Code(s): I48.91 - Unspecified atrial fibrillation Status: Chronic (9) Edema: Code(s): R60.9 - Edema, unspecified Status: Acute (10) GI bleed: Code(s): K92.2 - Gastrointestinal hemorrhage, unspecified Status: Acute DS: Summary Hospital Course Hospital Course: # Symptomatic bradycardia: Patient presents with weakness and found to have symptomatic sinus bradycardia with hypotension which improved with dopamine infusion. He was on metoprolol and Amio at home which was held. Treated with atropine and Calcium Gluconate in ED. Electrolytes were replaced. Cardiology consulted and appreciate their input. Echo showing EF 60-65% and Grade I diastolic dysfunction. Mild MR/TR noted. He had clinical improvement. Amiodarone restarted. Dopamine changed to Levophed and now has been weaned off. pt is on the medical floor now Heart rate stable idalia is resolved. Beta-dylon on hold at discharge # Sepsis: Patient met criteria for sepsis on arrival in the ER. Patient was not given the fluid bolus due to his overall volume overload. HoTN could be partly explained by the bradycardia and medications that he was on. He was started on Vanco and cefepime (05/25) once appropriate cultures obtained. UA was negative. CXR was clear (05/24) and repeat showing minimal congestive changes. Concern for right foot cellulitis. BCx growing Staph epidermidis in aerobic bottle only (felt to be a contaminant). 2nd set negative. BCx 05/29 NGTD MRSA nasal swab PCR negative. Wound Care and Podiatry evaluated the patient PCT level was low at 0.1 CT of the foot showing no evidence of osteomyelitis. CT A/P did show multifocal patchy areas of consolidation bilateral LL so consider pneumonia otherwise no acute findings by CT Patient completed a course of antibiotics. ST evaluation showing no concerns for aspiration Monitor off antibiotics # Ileus: Patient had not had bowel movement for many days. CT abdomen pelvis 05/26 without contrast did not show any evidence of obstruction. Patient was tolerating diet until 05/29 when he had recurrent n/v. NG tube was inserted and KUB showing NBGP. Repeat KUB showing mildly distended SB loops consistent with SBO. No free air. Patient had immediately drained 1 L of gastric fluid once NGT secured. He had a short course of Reglan. Documented BMs with last one 05/31. KUB showing normal bowel gas pattern. Diet started and tolerating. NGT was removed. Continue Miralax Monitor for recurrent symptoms. Increase activity. PT/ OT # Hypotension: Patient with HoTN on admisison. He was started on low-dose dopamine to keep MAP at target level. He does have a history of low blood pressure at baseline but worse felt related to septic shock but consider hypovolemia. chuck Muñoz
[2024-06-06 16:00] VITALS: BP 114/76; PULSE 87; RESP 14; TEMP 35.9; O2SAT 100
[2024-06-06] MEDS: NEOMYCIN/POLYMYXIN/BACITRACIN OINTMENT PACKET 1 PACKET (16:00)
== END 2024-06-06 17:00 | DRG 871 ==
LOC: ANHED 19:34 → ANHICU 22:22 → ANHIMU 06-01 12:38 → ANH3MEDSUR 06-05 10:34
PROVIDERS: Family Medicine; Internal Medicine; Internal Medicine Nephrology; Admitting Provider Internal Medicine; Emergency Provider Student in an Organized Health Care Education/Training Program; PCP Physician Assistant Medical; Visit Provider Internal Medicine
DX: A41.9 Sepsis, unspecified organism (principal); J18.9 Pneumonia, unspecified organism; R65.21 Severe sepsis with septic shock; N17.9 Acute kidney failure, unspecified; D62 Acute posthemorrhagic anemia; E87.1 Hypo-osmolality and hyponatremia; K92.2 Gastrointestinal hemorrhage, unspecified; I50.32 Chronic diastolic (congestive) heart failure; I42.8 Other cardiomyopathies; K56.609 Unspecified intestinal obstruction, unspecified as to partial versus complete obstruction; L03.115 Cellulitis of right lower limb; N18.31 Chronic kidney disease, stage 3a; L97.512 Non-pressure chronic ulcer of other part of right foot with fat layer exposed; R74.01 Elevation of levels of liver transaminase levels; R00.1 Bradycardia, unspecified; N21.0 Calculus in bladder; E87.5 Hyperkalemia; I48.0 Paroxysmal atrial fibrillation; K76.1 Chronic passive congestion of liver; I73.9 Peripheral vascular disease, unspecified; G47.33 Obstructive sleep apnea (adult) (pediatric); Z20.822 Contact with and (suspected) exposure to COVID-19; R29.6 Repeated falls; Z87.891 Personal history of nicotine dependence; Z95.820 Peripheral vascular angioplasty status with implants and grafts
CPT/HCPCS: 36415; 36569; 70450; 71045; 71046; 71100; 73700; 74019; 74176; 76775; 80048; 80053; 81001; 81050; 82533; 82550; 82570; 82948; 83036; 83605; 83735; 83880; 84100; 84145; 84156; 84300; 84443; 84484; 84540; 85025; 85027; 85999; 87040; 87077; 87086; 87181; 87637; 87641; 92610; 93005; 94762; 96361; 96374; 97110; 97116; 97162; 97166; 97530; 97535; 99285; A9270; C8929; J0461; J0612; J0650; J0692; J1265; J1650; J1720; J1940; J2270; J2405; J2470; J2765; J2997; J3250; J3370; J3475; J7030; J7040; J7050; J7120; P9045; P9047; Q9957

== ENCOUNTER 2024-06-15 22:21 | Observation (INO) | payer MEDICARE, SELFPAY ==
--- NOTE | ~2024-06-15 | XR_ITS ---
Portable chest x-ray Comparison: 06/05/2024 Clinical History: Dyspnea Findings: There is central congestive change and probable minimal central pulmonary edema. Cardiome diastinal silhouette is stable. Bones and soft tissues are unremarkable. Impression: Central congestive change and probable minimal central pulmonary edema. Stable cardiomegaly. Reviewed, dictated and finalized at [facility]. Impression: Central congestive change and probable minimal central pulmonary edema. Stable cardiomegaly.
[2024-06-15 22:22] VITALS: BP 64/32; PULSE 82; RESP 21; TEMP 32.7; O2SAT 100
--- NOTE | 2024-06-15 22:29 | ECG_ITS ---
Test Date: 2024-06-15 22:43:56 Measurements Intervals [place] Rate: 78 P: 65 MD: 137 QRS: 17 QRSD: 126 T: 95 QT: 423 QTc: 484 Interpretive Statements SINUS RHYTHM INTRAVENTRICULAR CONDUCTION DELAY DELAYED PRECORDIAL R/S TRANSITION CONSIDER INFERIOR INFARCT, AGE INDETERMINATE BORDERLINE ST-T WAVE ABNORMALITY- ANTEROLAT/HIGH LAT LEADS BASELINE ARTIFACT- I, II, III, AVR, AVL, AVF, V1 ABNORMAL ECG Compared to ECG 05/24/2024 20:02:32 HEART RATE HAS INCREASED Electronically Signed On 06-16-2024 06:25:09 CDT by Theron Young D.O.
[2024-06-15 22:34] LABS: Glucose Point of Care 78 mg/dl (65-105)
[2024-06-15 22:43] LABS: Basophils Percent Auto 0.2 % (0.2-1.2); Eosinophils Percent Auto 0.3 % (0-4.4); Hematocrit 28.3 % (42.0-52.0); Hemoglobin 9.5 g/dL (14.0-18.0); Immature Granulocyte Absolute 0.03 K/mm3 (0.00-0.031); Immature Granulocyte Percent A 0.5 % (0-0.5); Lymphocytes Absolute Auto 0.38 K/mm3 (0.9-3.2); Lymphocytes Percent Auto 6.6 % (18.3-44.2); Mean Corpuscular HGB Conc 33.6 g/dl (32-36); Mean Corpuscular Hemoglobin 32.6 pg (26-34); Mean Corpuscular Volume 97.3 fl (80-100); Mean Platelet Volume 10.6 fl (7.4-10.4); Monocytes Absolute Auto 0.4 K/mm3 (0.1-0.6); Monocytes Percent Auto 7.2 % (2.6-8.5); Neutrophils Absolute Auto 4.9 K/mm3 (1.3-6.7); Neutrophils Percent Auto 85.2 % (45.5-73.1); Nucleated Red Blood Cells Perc 0.7 % (0.0-0.2); Platelet Count Result 143 k/mm3 (150-375); Red Blood Count 2.91 M/mm3 (4.6-6.20); Red Cell Distribution Width 15.4 % (11.5-14.5); White Blood Count 5.7 K/mm3 (4.5-10.0)
[2024-06-15 22:43] LABS: Alveolar/Arterial O2 Gradient 318.5 mmHg; Base Excess ABG -1.8 mEq/l (+/-2.0); Device NON-REBREATHER MASK; Fractional Inspired Oxygen 60 %; HCO3 ABG 22.1 mEq/l (22.0-26.0); Oxygen Content ABG 13.6 %vol (16.0-22.0); Oxyhemoglobin 90.7 % THb (90.0-100.0); PCO2 ABG 34.2 mmHg (35.0-45.0); PO2 ABG 71.7 mmHg (80.0-100.0); PO2 FiO2 Ratio Arterial Blood 1.19 %; Total Hemoglobin 10.6 g/dL (12.0-18.0); pH ABG 7.428 (7.350-7.450)
[2024-06-15 22:52] VITALS: BP 99/70; PULSE 79; RESP 20; TEMP 32.7; O2SAT 100
[2024-06-15 22:53] LABS: INR 2.2; Prothrombin Time 24.7 Seconds (11.1-14.7)
[2024-06-15 22:54] LABS: Partial Thromboplastin Time 53.4 Seconds (22.3-36.8)
[2024-06-15] MEDS: SODIUM CHLORIDE 0.9% IV 1,000 ML 999 ML IV CONT ×2 (22:56→23:27)
--- NOTE | 2024-06-15 22:56 | PC.NURSE ---
Provider aware of pts low temperatures. Ada hugger applied, fluids running through fluid warmer, temp sensing catheter inserted.
[2024-06-15 23:00] VITALS: O2SAT 100
[2024-06-15 23:00] LABS: Alanine Aminotransferase 206 U/L (6-50); Albumin Level 2.7 g/dL (3.5-5.1); Alkaline Phosphatase 128 U/L (38-126); Anion Gap 8 mmol/L (4-12); Aspartate Amino Transferase 145 U/L (17-59); Bilirubin,Total 0.7 mg/dL (0.2-1.3); Blood Urea Nitrogen 30 mg/dL (9-20); Calcium 8.3 mg/dL (8.4-10.2); Carbon Dioxide 26 mmol/L (22-30); Chloride 96 mmol/L (98-107); Estimated CRCL calculation 46 ml/min; Estimated Glomerular Filt Rate 42; Glucose 78 mg/dL (65-110); Magnesium 1.6 mg/dL (1.6-2.3); Potassium 3.6 mmol/L (3.4-5.0); Sodium 130 mmol/L (137-145)
[2024-06-15 23:10] LABS: NT Pro B Type Natriuretic Pept 3890 pg/mL (19.9-100); Troponin I < 0.012 ng/mL (0.000-0.034)
[2024-06-15 23:12] LABS: Add Urine Microscopic? YES; Appearance Urine Clear (Clear); Bacteria Urine None Seen /hpf; Bilirubin Urine Negative (Negative); Blood Urine Negative (Negative); Color Urine Dark Yellow (Yellow); Glucose Urine UA Negative (Negative); Ketones Urine Negative (Negative); Leukocyte Esterase Ur 1+ LEU/UL (Negative); Need Manual Microscopic Reviewed; Nitrate Urine Negative (Negative); Non Pathogenic Casts 0-2; Protein Urine Trace mg/dL (Negative); RBC Urine 0-2 /hpf (0-2); Specific Grav Ur 1.016 (1.001-1.035); Squamous Epithelial Cell Urine None Seen /hpf (Few); WBC Urine 0-5 /hpf (0-3); pH Urine 5.5 (5.0-9.0)
[2024-06-15 23:23] VITALS: BP 75/57; PULSE 71; RESP 19; TEMP 32.8; O2SAT 97
[2024-06-15] MEDS: MIDODRINE HCL 2.5 MG TABLET PO (23:26)
[2024-06-15 23:36] LABS: Influenza A QL RT-PCR Negative (Negative); Influenza B QL RT-PCR Negative (Negative); RSV RNA, RT-PCR Negative (Negative); SARS-CoV-2 RNA PCR Negative (Negative)
[2024-06-15 23:48] VITALS: BP 56/39; PULSE 74; RESP 19; O2SAT 87
[2024-06-15 23:49] VITALS: O2SAT 89
--- NOTE | 2024-06-15 23:52 | ED.GENADULT ---
HPI - General Adult General Chief complaint: Altered Mental Status Stated complaint: foot pain/altered Time Seen by Provider: 06/15/24 22:27 History of Present Illness HPI narrative: Patient is a 79-year-old gentleman who presents emergency department with chief complaint shortness of breath with RG patient has history of peripheral vascular disease has had problems with bradycardia and EMS was called and was found to be saturating in the 70s and was bradycardic the patient is extremely lethargic and having been having peripheral edema. Patient is a known DNR with comfort measures Related Data Home Medications Medication Instructions Recorded Confirmed apixaban 5 mg tablet (Eliquis) 5 mg PO BID 07/13/23 06/12/24 cholecalciferol (vitamin D3) 50 50 mcg PO DAILY 07/13/23 06/12/24 mcg (2,000 unit) capsule collagen,hydrolysate 500 mg-biotin 1 cap PO DAILY ##0 07/13/23 06/12/24 800 mcg-ascorbic acid 50 mg capsule levothyroxine 150 mcg tablet 150 mcg PO DAILY 07/13/23 06/12/24 atorvastatin 40 mg tablet 40 mg PO DAILY 05/05/24 06/12/24 clopidogrel 75 mg tablet (Plavix) 75 mg PO DAILY 05/05/24 06/12/24 Allergies Allergy/AdvReac Type Severity Reaction Status Date / Time No Known Allergies Allergy Verified 06/12/24 08:46 Review of Systems Review of Systems: A 10 system review of systems was completed on the patient and is negative except for what is stated in the HPI. Nursing and ancillary documentation was reviewed. [facility] Past Medical History Medical History Abnormal results of kidney function studies Acute blood loss anemia Afib CHF (congestive heart failure) CKD (chronic kidney disease) Coffee ground emesis Peripheral arterial disease Pneumonia Surgical History Surgical History H/O skin graft History of angioplasty of peripheral vessel Family History Family History Sibling Atrial fibrillation Cerebrovascular accident Father Myocardial infarction Other Myocardial infarct, old Social History Social History Smoking packs per day: 0.5 Smoking cigarettes per day: 10.0 Years smoked: 3 Smoking pack-years: 1.50 Smoking status: Former smoker Tobacco type: cigarettes Second hand tobacco smoke exposure: No Smoking end date: 10/01/70 Alcohol intake: former Alcohol use details: 1-2 drinks a week Substance use: never Substance use type: does not use Do You Feel Safe in your Home?: Yes Lack of Transportation: No Lack of Food: Never True Current Housing: I Have Housing Concerned About Future Housing: No Difficulty Paying Gas/Electric Bills: No Difficulty Paying for Meds: No Currently Unemployed: No Education: High School Diploma/GED Difficulty w/ Childcare or Family Care: No Living arrangements: with family Occupation/Education: retired Gender identity (if verbalized by the patient): Male Spiritual care concerns: No Exam Narrative: GENERAL: Ill-appearing, well-nourished, and in no acute distress. HEAD: Normocephalic, atraumatic. EYES: PERRLA and EOMI. ENT: Nares clear, no rhinorrhea or epistaxis. Mucous membranes moist. NECK: Supple. CHEST: Clear to auscultation. No respiratory distress. HEART: Regular rate and rhythm. No murmur heard. Normal peripheral pulses. ABDOMEN: Soft, nontender, nondistended, normal active bowel sounds. EXTREMITIES: Normal range of motion. 3+ edema. SKIN: Warm, dry, no rash. NEURO: No focal deficits. Alert very slow able answer questions appropriately. PSYCH: Normal mood and affect. Course Vital Signs Vital signs: Vital Signs Temperature 32.7 C L 06/15/24 22:22 Pulse Rate 82 06/15/24 22:22 Respiratory Rate 21 H 06/15/24 22:22 Blood Pressure 64/32 L
--- NOTE | 2024-06-16 00:11 | PM.IMHP ---
H&P: HPI History of Present Illness Date/Time: 06/16/24 00:11 Chief Complaint: Shortness of breath Narrative: Mr. Ibarra is an 79-year-old male with multiple medical comorbidities who resides at [facility]. He is brought in by EMS for chief complaint shortness of breath. He is found to be saturating in the 70s and extremely lethargic with severe peripheral edema mostly on lower extremities. He was recently discharged from [facility] on 06/06/2024 with symptomatic bradycardia, severe sepsis with hypotension requiring pressors, ileus, RANDALL and CKD, hyperkalemia. He has peripheral artery disease status post stent in the right leg. He has chronic atrial fibrillation, history of GI bleed. Multiple family members present in ER room 13 including daughter Kiara a nurse and his . reports he has not been in good health since atrial fibrillation was diagnosed. He also has CHF. In the ER the patient was very lethargic, nonverbal. Requiring 15 L non-rebreather mass to maintain saturations. Hypothermia. Hypotension with blood pressure 56/39. Ultimately, discussion between family members an ER physician resulted with decision to pursue comfort care. Care coordination and hospice consultation placed for the morning. Review of Systems Review of Systems: All systems reviewed & are unremarkable except as noted in HPI and below (Subjective) PMFSH Past Medical History Medical History Abnormal results of kidney function studies Acute blood loss anemia Afib CHF (congestive heart failure) CKD (chronic kidney disease) Coffee ground emesis Peripheral arterial disease Pneumonia Surgical History Surgical History H/O skin graft History of angioplasty of peripheral vessel Family History Family History Sibling Atrial fibrillation Cerebrovascular accident Father Myocardial infarction Other Myocardial infarct, old Social History Social History Smoking packs per day: 0.5 Smoking cigarettes per day: 10.0 Years smoked: 3 Smoking pack-years: 1.50 Smoking status: Former smoker Tobacco type: cigarettes Second hand tobacco smoke exposure: No Smoking end date: 10/01/70 Alcohol intake: former Alcohol use details: 1-2 drinks a week Substance use: never Substance use type: does not use Do You Feel Safe in your Home?: Yes Lack of Transportation: No Lack of Food: Never True Current Housing: I Have Housing Concerned About Future Housing: No Difficulty Paying Gas/Electric Bills: No Difficulty Paying for Meds: No Currently Unemployed: No Education: High School Diploma/GED Difficulty w/ Childcare or Family Care: No Living arrangements: with family Occupation/Education: retired Gender identity (if verbalized by the patient): Male Spiritual care concerns: No Meds Home Medications and Allergies Home Medications Medication Instructions Recorded Confirmed Type apixaban 5 mg tablet (Eliquis) 5 mg PO BID 07/13/23 06/12/24 History cholecalciferol (vitamin D3) 50 50 mcg PO DAILY 07/13/23 06/12/24 History mcg (2,000 unit) capsule collagen,hydrolysate 500 mg-biotin 1 cap PO DAILY ##0 07/13/23 06/12/24 History 800 mcg-ascorbic acid 50 mg capsule levothyroxine 150 mcg tablet 150 mcg PO DAILY 07/13/23 06/12/24 History atorvastatin 40 mg tablet 40 mg PO DAILY 05/05/24 06/12/24 History clopidogrel 75 mg tablet (Plavix) 75 mg PO DAILY 05/05/24 06/12/24 History amiodarone 200 mg tablet (Pacerone) 200 mg PO DAILY@0800 #30 tabs 06/06/24 06/12/24 Rx diphenhydramine HCl 25 mg capsule 25 mg PO Q4H PRN Itching #30 caps 06/06/24 06/12/24 Rx finasteride 5 mg tablet (Proscar) 5 mg PO QAM #30 tabs 06/06/24 06/12/24 Rx furosemide 40 mg tablet 20 m
[2024-06-16 00:27] VITALS: BP 62/35; PULSE 80; RESP 6; O2SAT 65
--- NOTE | 2024-06-16 00:32 | ADMGEN ---
This patient, Adolfo Ibarra, was admitted to Medical Room 258-01. Patient/family oriented to hospital policies and general routines including ID bracelet, bed and alarms, visiting hours, pain management, procedures, bathroom and other care routines, personal items, smoking policy, room service/diet, and visiting hours. Information on how to activate the Rapid Response Team has been discussed. Patient/Family are encouraged to report perceived risks to care and to ask questions if they do not understand what they are told or what they should do.
[2024-06-16] MEDS: MORPHINE SULFATE (*CRX) 2 MG/ML INJ IV PUSH (00:58)
[2024-06-16] MEDS: LORazepam INJ (*CRX) 2 MG/ML VIAL 1 MG IV PUSH (00:59)
--- NOTE | 2024-06-16 02:21 | PM.DDS ---
Discharge Summary Date and Time Date of : 06/16/24 Time of : 01:23 Provider Pronounced By: 2 RNs Name of First RN That Pronounced: MELI LYLES RN Name of Second RN That Pronounced: LATIA ALBERTS RN Probable Cause of Probable Cause of : Acute hypoxic respiratory failure Summary Hospital Course: Mr. Ibarra is an 79-year-old male with multiple medical comorbidities who resides at [facility]. He is brought in by EMS for chief complaint shortness of breath. He is found to be saturating in the 70s and extremely lethargic with severe peripheral edema mostly on lower extremities. He was recently discharged from [facility] on 06/06/2024 with symptomatic bradycardia, severe sepsis with hypotension requiring pressors, ileus, RANDALL and CKD, hyperkalemia. He has peripheral artery disease status post stent in the right leg. He has chronic atrial fibrillation, history of GI bleed. Multiple family members present in ER room 13 including daughter Kiara a nurse and his . reports he has not been in good health since atrial fibrillation was diagnosed. He also has CHF. In the ER the patient was very lethargic, nonverbal. Requiring 15 L non-rebreather mass to maintain saturations. Hypothermia. Hypotension with blood pressure 56/39. Ultimately, discussion between family members an ER physician resulted with decision to pursue comfort care. Care coordination and hospice consultation placed for the morning. ---- The patient at the time noted above. was expected. Additional Data Confirmation of as documented by pronouncing clinician: Pupillary Reflex, Palpable Pulses, Response to Stimuli, Heart Tones and Breath Sounds Name of Provider Notified: JAIR PEDERSON Time Provider Notified: 01:30 Provider Requests Autopsy: No Family Requests Autopsy: No Counter Person Notified: Yes Date [facility] Notified of : 06/16/24 Time [facility] Notified of : 01:54
--- NOTE | 2024-06-16 03:04 | PC.NURSE ---
0300 BODY TO MORGUE PER CART TO [facility], AWAITING [facility] TO DECIDE DONAR STATUS. AWAITING CALL BACK ALSO FROM [facility], 2 MESSAGES LEFT.
--- NOTE | 2024-06-16 06:13 | PC.NURSE ---
home returned call, aware patient is in morgue, and awaiting mts release
== END 2024-06-16 01:23 | disposition expired ==
LOC: ANHED 23:56 → ANH2MED 06-16 00:30
PROVIDERS: Admitting Provider General Practice; Emergency Provider Emergency Medicine; PCP Physician Assistant Medical; Visit Provider General Practice
DX: J96.91 Respiratory failure, unspecified with hypoxia (principal); N17.9 Acute kidney failure, unspecified; R60.0 Localized edema; N18.9 Chronic kidney disease, unspecified; I73.9 Peripheral vascular disease, unspecified; I50.9 Heart failure, unspecified; I48.20 Chronic atrial fibrillation, unspecified; Z79.02 Long term (current) use of antithrombotics/antiplatelets; Z79.01 Long term (current) use of anticoagulants; Z66 Do not resuscitate; Z87.891 Personal history of nicotine dependence; Z95.820 Peripheral vascular angioplasty status with implants and grafts; Z20.822 Contact with and (suspected) exposure to COVID-19; Z79.899 Other long term (current) drug therapy
CPT/HCPCS: 36415; 36600; 71045; 80053; 81001; 82805; 82810; 82948; 83605; 83735; 83880; 84145; 84484; 85025; 85610; 85730; 87086; 87637; 93005; 96374; 96375; 99285; A9270; G0378; J2060; J2270; J7030